=== PATIENT | female | born 1950 | race African-American/Black ===

== ENCOUNTER → 2020-06-12 13:36 | Outpatient (CLI) | payer OTHER, SELFPAY ==
--- NOTE | ~2020-06-12 | DEXA_ITS ---
Bone Density Report Name: Savanna Armenta Age: 70 Sex: Female Ethnicity: Black Date of : 1950 Indication: osteopenia; height loss; history of glucocorticoids; hysterectomy; Referring Provider: BERNARDO, NIESHA Muñoz Study: Bone densitometry was performed. Exam Date: June 12, 2020 Accession number: [id number] Bone Density: Region BMD T-score Z-score Classification AP Spine (L1-L4) 0.823 -2.0 -0.8 Osteopenia Femoral Neck (Right) 0.731 -1.1 -0.2 Osteopenia Total Hip (Right) 0.840 -0.8 -0.2 Normal World Health Organization criteria for BMD impression classify patients as: Normal (T-score at or above -1.0), Osteopenia (T-score between -1.0 and -2.5), or Osteoporosis (T-score at or below -2.5). 10-year Fracture Risk(1): Major Osteoporotic Fracture 6.2% Hip Fracture 0.7% Reported Risk Factors: [place] ([place]), Neck BMD=0.731, BMI=27.4, glucocorticoids (1) FRAX(R) Version 3.08. Fracture probability calculated for an untreated patient. Fracture probability may be lower if the patient has received treatment. Previous Exams: Region Exam Age BMD T-score BMD Change BMD Change Date g/cm2 vs Baseline vs Previous AP Spine(L1-L4) 06/12/2020 70 0.823 -2.0 -0.032* -0.080* 02/18/2018 67 0.903 -1.3 0.048* 0.048* 01/28/2011 60 0.855 -1.7 Total Hip(Right) 06/12/2020 70 0.840 -0.8 -0.041* -0.018 02/18/2018 67 0.857 -0.7 -0.024 -0.024 01/28/2011 60 0.881 -0.5 *Denotes significance at 95% confidence level, LSC for AP Spine = 0.022 g/cm2, LSC for Total Hip = 0.027 g/cm2 Clinical Information Provided by Patient: Has taken Glucocorticoids Has used the following medications: Vitamin D, prednisone in the past Has the following medical conditions: Hysterectomy, pancreas cancer 2018 Patient maximum height was 62 Menopause Age: 26 No regular weight bearing exercise Does not regularly consume dairy products Onset of menses at age 12 Number of children 2 Impression: The patient has low bone mass, based on the Total Spine T-score. The patient has an estimated ten-year risk of hip fracture of 0.7% and an estimated ten-year risk of major fracture of 6.2%, based on the WHO FRAX algorithm. The patient has risk factors, including: history of glucocorticoid therapy. The BMD for the AP Spine(L1-L4) decreased, changing by -0.080 since the last DXA exam. Discussion: BONE DENSITY IS LOW AT ONE OR MORE SKELETAL SITES. This patient's lowest T-score is low at one
--- NOTE | ~2020-06-12 | MM_ITS ---
EXAMINATION: MM screening [facility] BI w liliane HISTORY: Screening TECHNIQUE: Craniocaudal and mediolateral oblique 3-D tomosynthesis images were obtained and synthetic 2-D images were generated. CAD analysis was submitted and interpreted. COMPARISON: No prior mammogram is available for comparison at this institution. BREAST PARENCHYMAL COMPOSITION: There are scattered areas of fibroglandular density. FINDINGS: Stable benign-appearing radiolucent mass lower outer quadrant of the right breast. Stable b enign-appearing lymph nodes in the axillary aspect of the left breast. There is no evidence of suspic ious mass, calcification, or architectural distortion to suggest malignancy in either breast. There h as been no suspicious interval change. IMPRESSION: 1. No mammographic evidence of malignancy. 2. Recommend routine screening mammography in one year. BI-RADS Category 2: Benign finding(s). Reviewed, dictated and finalized at location A.
== END ==
PROVIDERS: PCP Internal Medicine; Visit Provider Internal Medicine
DX: Z12.31 Encounter for screening mammogram for malignant neoplasm of breast (principal); N95.9 Unspecified menopausal and perimenopausal disorder; M85.80 Other specified disorders of bone density and structure, unspecified site
CPT/HCPCS: 77063; 77067; 77080

== ENCOUNTER 2021-01-23 09:27 | Outpatient (CLI) | payer MEDICARE, SELFPAY ==
--- NOTE | ~2021-01-23 | CT_ITS ---
EXAMINATION: CT thoracic spine wo con EXAM DATE: 01/23/2021 09:41 INDICATION: Chronic back pain. Pancreatic cancer. TECHNIQUE: Spiral CT thoracic spine wo con was performed without contrast. Axial, coronal and sagit fercho images were reviewed. The dose-length product (DLP) for this examination was 536.04 mGy-cm. The exposure was tailored according to patient size (auto mA exposure control), and iterative reconstruc tion (ASIR) was used as additional dose reduction technique. There is no prior study for comparison. FINDINGS: There is moderate mid thoracic disc disease. The vertebral bodies are aligned in the AP dim ension. The vertebral body heights are maintained. There are no acute fractures identified. There is moderate left neural foraminal stenosis at T9-T10, mild to moderate at T6-7. There is mild to moderat e right neural foraminal stenosis at T9-10. Central canal appears widely patent. There is mild thorac ic facet arthropathy. There are no osteoblastic or osteolytic lesions identified. Trace left pleural effusion. No mediastinal lymphadenopathy. Left hip arthroplasty. IMPRESSION: Moderate mid thoracic spondylosis. Reviewed, dictated and finalized at location A.
== END 2021-01-23 09:28 ==
LOC: MICIMG 09:27
PROVIDERS: PCP Internal Medicine; Visit Provider Internal Medicine
DX: M47.814 Spondylosis without myelopathy or radiculopathy, thoracic region (principal); M48.04 Spinal stenosis, thoracic region
CPT/HCPCS: 72128

== ENCOUNTER → 2021-05-11 11:01 | Outpatient (CLI) | payer MEDICARE, SELFPAY ==
--- NOTE | ~2021-05-11 | MR_ITS ---
EXAMINATION: MR lumbar spine wo con EXAM DATE: 05/11/2021 11:49 INDICATION low back pain, burning, tingling. Indication bilateral leg pain. TECHNIQUE: Multi-sequential, multiplanar MR images of the lumbar spine were obtained without contrast . Sagittal T1, T2, T2 fat saturation images. Axial T2 weighted images. Comparison is made to prior examination from 03/13/2018. FINDINGS: There is 4 mm anterolisthesis L3 on L4, was 2 mm on prior study. Mild to moderate disc dise ase at L5-S1. The vertebral body and disc heights are otherwise well maintained. The vertebral bodies are otherwise aligned. The conus medullaris terminates at the T12-L1 level and has normal signal int ensity and morphology. There are no suspicious marrow signal abnormalities. Incidental liver cyst. P araspinal soft tissue is unremarkable. Level by level evaluation: T12-L1: Disc does not extend beyond the endplate margin. Facet arthropathy: Mild. Neural foraminal stenosis: No stenosis. Central canal stenosis: No stenosis. L1-L2: Disc does not extend beyond the endplate margin. Facet arthropathy: Mild. Neural foraminal stenosis: No stenosis. Central canal stenosis: No stenosis. L2-L3: Disc does not extend beyond the endplate margin. Facet arthropathy: Mild. Neural foraminal stenosis: Minimal left. Central canal stenosis: No stenosis. L3-L4: There is a mild diffuse disc bulge. Facet arthropathy: Mild. Neural foraminal stenosis: Minimal left. Central canal stenosis: No stenosis. L4-L5: Pwry-ju-huxhddmh Facet arthropathy: Moderate to severe. Neural foraminal stenosis: Moderate left, mild to moderate right. Central canal stenosis: Mild to moderate. L5-S1: There is a mild diffuse disc bulge. There may be right central discectomy defect. Facet arthropathy: Moderate. Neural foraminal stenosis: Mild to moderate right. Central canal stenosis: No stenosis. IMPRESSION: 1. L4-5 grade 1 anterolisthesis, moderate left neural foraminal stenosis. Reviewed, dictated and finalized at location B.
== END ==
PROVIDERS: PCP Nurse Practitioner Family; Visit Provider Nurse Practitioner Family
DX: M54.5 Low back pain (principal); M43.16 Spondylolisthesis, lumbar region; M48.061 Spinal stenosis, lumbar region without neurogenic claudication
CPT/HCPCS: 72148

== ENCOUNTER 2022-03-12 09:00 | Outpatient (CLI) | payer MEDICARE, SELFPAY ==
--- NOTE | ~2022-03-12 | MR_ITS ---
EXAMINATION: MR cervical spine wo con, MR thoracic spine wo con DATE: 03/12/2022 09:44 (accession [id number]), 03/12/2022 09:47 (accession [id number]) INDICATION: Multiple sclerosis TECHNIQUE: 1. Magnetic resonance imaging (MRI) of the cervical spine was performed without intravenous contrast. Sequences included sagittal T2-weighted FSE, sagittal T2-weighted FS FSE, sagittal T1-weighted FSE, axial MERGE and axial T2-weighted FSE. 2. MRI of the thoracic spine was performed without intravenous contrast. Sagittal localizer T1-weight ed FSE of the cervicothoracic spine was obtained. Thoracic spine sequences included sagittal T2-weigh domenico FSE, sagittal T1-weighted SE, Sagittal T2-weighted FS FSE, and axial T2-weighted FSE. COMPARISON: 03/13/[address] dated 01/23/2021 FINDINGS: Cervical spine: Bone alignment is normal. C5-C7 discectomies and anterior spinal fusion with solid osseous fusion acr oss the disc spaces. Unfused vertebral body heights are normal. Bone marrow signal intensity is norm al. Moderate disc height loss with degenerative endplate changes at C3-C4 and C4-C5. No significant c hange in a region of T2 hyperintense central myelomalacia of the cord at the level of T4. There is an approximate 5 mm focus of more subtle increased T2 signal centered posterior to the central canal in the proximal most cord approximately 1 cm below the cervical medullary junction. Remaining cord sign al intensity is normal. Cervical soft tissues are unremarkable. The following disc levels are specifi gabbie discussed: C2-C3: The disc does not extend beyond the endplate margin. There is mild left uncovertebral joint os teoarthritis. There is mild bilateral facet joint osteoarthritis. There is no neural foraminal stenos is. There is no central canal stenosis. C3-C4: Disc is bulging. There is moderate right and severe left uncovertebral joint osteoarthritis. T here is mild right and moderate left facet joint osteoarthritis. There is mild right and moderate lef t neural foraminal stenosis. There is mild central canal stenosis with flattening of the ventral surf aleks of the cord. C4-C5: Disc is bulging. There is moderate left and severe right uncovertebral joint osteoarthritis. T here is mild to moderate right and moderate left facet joint osteoarthritis. There is mild left and m oderate right neural foraminal stenosis. There is mild central canal stenosis with mild indentation o f the ventral surface of the cord. C5-C6: Disc space and uncovertebral joints are fused. The bilateral facet joints appear at least part ially fused with mild hypertrophic changes. There is minimal left neural foraminal stenosis. There is no central canal stenosis. C6-C7: Disc space and uncovertebral joints are fused with mild hypertrophic changes. There is mild bi lateral facet joint osteoarthritis. There is mild bilateral neural foraminal stenosis. There is mild central canal stenosis. C7-T1: Disc is mildly bulging. There is mild bilateral uncovertebral joint osteoarthritis. There is m ild bilateral facet joint osteoarthritis. There is mild bilateral neural foraminal stenosis. There is no central canal stenosis. Thoracic spine: Alignment is normal. Vertebral body heights are normal. No fractures. Bone marrow signal is normal. T here is multilevel disc height loss throughout much of the thoracic spine, severe at T4-T5, T5-T6, T6 -T7 and T8-T9, moderate at T3-T4, T7-T8 and T9-T10 and mild at T2-T3 and T9-T10. There are mild disc bulges or small disc protrusions at each level from T1-T2 through T9-T10 resulting in no to minimal c entral canal stenosis at each level. The T11-T12 through L1-L2 disc does not extend beyond the endpla te margins. There is multilevel mild to moderate bilateral thoracic facet osteoarthritis. This contri butes to moderate neural foraminal stenosis bilaterally at T9-T10 and on the right at T
== END 2022-03-12 09:01 ==
LOC: MICIMG 09:00
PROVIDERS: PCP Internal Medicine; Visit Provider Psychiatry & Neurology Neurology
DX: G35 Multiple sclerosis (principal); M47.894 Other spondylosis, thoracic region
CPT/HCPCS: 72141; 72146

== ENCOUNTER → 2022-10-14 15:02 | Outpatient (CLI) | payer MEDICARE, SELFPAY ==
--- NOTE | ~2022-10-14 | MM_ITS ---
EXAMINATION: MM screening homero BI w liliane HISTORY: Screening mammogram TECHNIQUE: Craniocaudal and mediolateral oblique 3-D tomosynthesis images were obtained and synthetic 2-D images were generated. CAD analysis was submitted and interpreted. COMPARISON: 06/12/2020, 02/18/2018, 09/27/2016 bilateral screening mammogram examinations BREAST PARENCHYMAL COMPOSITION: There are scattered areas of fibroglandular density. FINDINGS: Chronic circumscribed oval opacity in the lower outer right breast with little change since 02/18/2018. Stable circumscribed lymph nodes in the posterior mid to upper outer left breast. There is no evidence of suspicious mass, calcification, or architectural distortion to suggest malign marion in either breast. There has been no suspicious interval change. IMPRESSION: 1. No mammographic evidence of malignancy. 2. Recommend routine screening mammography in one year. BI-RADS Category 2: Benign finding(s). Reviewed, dictated and finalized at location A. [facility] MAGISTRATE
== END ==
PROVIDERS: PCP Internal Medicine; Visit Provider Internal Medicine
DX: Z12.31 Encounter for screening mammogram for malignant neoplasm of breast (principal)
CPT/HCPCS: 77063; 77067

== ENCOUNTER → 2022-11-20 08:08 | Outpatient (CLI) | payer MEDICARE, SELFPAY ==
--- NOTE | ~2022-11-20 | CT_ITS ---
EXAMINATION: CT abdomen pelvis wo con DATE: 11/20/2022 08:34 INDICATION: Abdominal pain TECHNIQUE: Computed tomography (CT) of the abdomen and pelvis was performed without intravenous contr ast. Automated exposure control and iterative reconstruction technique were employed. The dose-length product was 592.75 mGy-cm. COMPARISON: None FINDINGS: Discoid atelectasis/scarring at the bilateral lung bases. Heart size is normal. No pericardial or ple ural effusion. No interval change in a 4.3 cm septated cyst in the right hepatic lobe. Postoperative change of prior Whipple procedure with cholecystectomy clips the gallbladder fossa, suture line at th e pancreaticoduodenal anastomosis and a couple surgical clips at a gastrojejunal anastomosis. Expecte d small amount of gas in the right biliary tree main pancreatic duct. There is mild colonic diverticu losis with a sigmoid predominance. There is no adjacent inflammatory change to suggest diverticuliti s. No bowel obstruction. The appendix is not visualized. No pericecal inflammatory change to suggest acute appendicitis. Bladder is unremarkable aside from some streak artifact from the adjacent left to fercho hip arthroplasty. The uterus is not identified and has likely been surgically resected. No free i ntraperitoneal gas or fluid. No pathologically enlarged abdominal or pelvic lymphadenopathy. Severe l ower lumbar facet osteoarthritis with 5 mm anterolisthesis L4 on L5. IMPRESSION: 1. Postoperative change of prior Whipple procedure. No acute intra-abdominal/pelvic process. 2. Mild diverticulosis. Reviewed, dictated and finalized at location A. IMPRESSION: 1. Postoperative change of prior Whipple procedure. No acute intra-abdominal/pe lvic process. 2. Mild diverticulosis.
--- NOTE | ~2022-11-20 | XR_ITS ---
Lumbosacral Spine: AP and lateral views Clinical History: Pain Findings: The normal lordotic curve is maintained. No acute fracture seen. 8 mm anterolisthesis of L4 over L5 noted. There is mild degenerative disc change at L5-S1. There is facet arthropathy from L3 t hrough S1. The sacroiliac joints are normally outlined. Impression: 8 mm anterolisthesis of L4 over L5. Additional degenerative changes, as above. Reviewed, dictated and finalized at location M. Impression: 8 mm anterolisthesis of L4 over L5. Additional degenerative changes, as above.
--- NOTE | ~2022-11-20 | XR_ITS ---
Cervical Spine: AP, lateral, open-mouth views Clinical History: Pain Findings: No acute fracture or subluxation identified. There is apparent fusion across the C5-C6 and C6-C7 disc spaces. There is moderate degenerative disc change at C3-C4 and C4-C5 disc spaces. Pre-yamile tebral soft tissues are unremarkable. Impression: No acute abnormality evident. Fusion across the C5-C6 and C6-C7 disc spaces. Moderate degenerative disc change at C3-C4 and C4-C5. Reviewed, dictated and finalized at [facility]. Impression: No acute abnormality evident. Fusion across the C5-C6 and C6-C7 disc spaces. Moderate degenerative disc change at C3-C4 and C4-C5.
--- NOTE | ~2022-11-20 | XR_ITS ---
Thoracic spine: Clinical Indication: Radiculopathy AP and lateral views were performed. No fracture is seen. There is normal alignment of the vertebrae. There are areas of mild degenerativ e disc narrowing in the mid thoracic spine. Paravertebral soft tissues appear normal. Impression: No fracture or subluxation. Mild degenerative disc narrowing throughout the mid thoracic spine. Reviewed, dictated and finalized at location . Impression: No fracture or subluxation. Mild degenerative disc narrowing throughout the mid thoracic spine.
== END ==
PROVIDERS: PCP Internal Medicine; Visit Provider Internal Medicine
DX: R10.9 Unspecified abdominal pain (principal); M54.16 Radiculopathy, lumbar region; M54.14 Radiculopathy, thoracic region; M54.12 Radiculopathy, cervical region; M50.321 Other cervical disc degeneration at C4-C5 level; M51.36 Other intervertebral disc degeneration, lumbar region; K57.30 Diverticulosis of large intestine without perforation or abscess without bleeding
CPT/HCPCS: 72040; 72072; 72100; 74176

== ENCOUNTER → 2023-01-02 08:58 | Outpatient (CLI) | payer MEDICARE, SELFPAY ==
--- NOTE | ~2023-01-02 | XR_ITS ---
Lumbosacral Spine: AP and lateral views Clinical History: Pain Findings: The normal lordotic curve is maintained. No fracture seen. 8 mm anterolisthesis of L4 over L5 present. There is facet arthropathy at L4-L5 and L5-S1. The sacroiliac joints are normally outline d. Impression: 8 mm anterolisthesis of L4 over L5. Facet arthropathy, as above. Reviewed, dictated and finalized at location M. Impression: 8 mm anterolisthesis of L4 over L5. Facet arthropathy, as above.
--- NOTE | ~2023-01-02 | XR_ITS ---
Thoracic spine: Clinical Indication: Back pain, radiculopathy AP and lateral views were performed. No fracture is seen. There is normal alignment of the vertebrae. Mild degenerative disc changes are present scattered through thoracic spine.. Paravertebral soft tissues appear normal. Impression: Mild degenerative disc changes throughout the thoracic spine. Reviewed, dictated and finalized at [facility]. Impression: Mild degenerative disc changes throughout the thoracic spine.
== END ==
PROVIDERS: PCP Pain Medicine Interventional Pain Medicine; Visit Provider Pain Medicine Interventional Pain Medicine
DX: M54.17 Radiculopathy, lumbosacral region (principal)
CPT/HCPCS: 72072; 72100

== ENCOUNTER → 2023-01-09 12:32 | Outpatient (CLI) | payer MEDICARE, SELFPAY ==
--- NOTE | ~2023-01-09 | DEXA_ITS ---
Bone Density Report Name: SHANNON DORSEY Age: 72 Sex: Female Ethnicity: Black Date of : 1950 Indication: osteopenia; height loss; hysterectomy; secondary osteoporosis; postmenopausal Referring Provider: BERNARDO, NIESHA Muñoz Study: Bone densitometry was performed. Exam Date: January 09, 2023 Accession number: [id number] Bone Density: Region BMD T-score Z-score Classification AP Spine (L1-L4) 0.843 -1.9 -0.4 Osteopenia Femoral Neck (Right) 0.767 -0.7 0.2 Normal Total Hip (Right) 0.835 -0.9 -0.1 Normal World Health Organization criteria for BMD impression classify patients as: Normal (T-score at or above -1.0), Osteopenia (T-score between -1.0 and -2.5), or Osteoporosis (T-score at or below -2.5). 10-year Fracture Risk(1): Major Osteoporotic Fracture 3.7% Hip Fracture 0.3% Reported Risk Factors: [place] (Black), Neck BMD=0.767, BMI=30.2, secondary osteoporosis (1) FRAX(R) Version 3.08. Fracture probability calculated for an untreated patient. Fracture probability may be lower if the patient has received treatment. Previous Exams: Region Exam Age BMD T-score BMD Change BMD Change Date g/cm2 vs Baseline vs Previous AP Spine(L1-L4) 01/09/2023 72 0.843 -1.9 -0.012 0.020 06/12/2020 70 0.823 -2.0 -0.032* -0.080* 02/18/2018 67 0.903 -1.3 0.048* 0.048* 01/28/2011 60 0.855 -1.7 Total Hip(Right) 01/09/2023 72 0.835 -0.9 -0.047* -0.005 06/12/2020 70 0.840 -0.8 -0.041* -0.018 02/18/2018 67 0.857 -0.7 -0.024 -0.024 01/28/2011 60 0.881 -0.5 *Denotes significance at 95% confidence level, LSC for AP Spine = 0.022 g/cm2, LSC for Total Hip = 0.027 g/cm2 Clinical Information Provided by Patient: Has secondary osteoporosis Has used the following medications: Vitamin D Has the following medical conditions: Hysterectomy, pancreas cancer 2018 Patient maximum height was 62 Menopause Age: 26 No regular weight bearing exercise Does not regularly consume dairy products Onset of menses at age 12 Number of children 2 Impression: The patient has low bone mass, based on the Total Spine T-score. The patient has an estimated ten-year risk of hip fracture of 0.3% and an estimated ten-year risk of major fracture of 3.7%, based on the WHO FRAX algorithm. No significant bone loss was observed. Discussion: BONE DENSITY IS LOW AT ONE OR MORE SKELETAL SITES. This patient's lowest T-score is low at one or more skel
== END ==
PROVIDERS: PCP Internal Medicine; Visit Provider Internal Medicine
DX: Z78.0 Asymptomatic menopausal state (principal); M85.88 Other specified disorders of bone density and structure, other site
CPT/HCPCS: 77080

== ENCOUNTER 2023-07-05 17:49 | Emergency (ER) | payer MEDICARE, SELFPAY ==
--- NOTE | ~2023-07-05 | XR_ITS ---
EXAMINATION: XR chest 2V Exam Date/Time: 07/05/2023 18:15 CDT HISTORY: CP WITH LEFT ARM TINGLING AND NUMBNESS STARTED Comparison: 06/03/2016. RESULT: Lines, tubes, and devices: None. Lungs and pleura: Clear. Cardiomediastinal silhouette: Stable. Other: No acute osseous or upper abdominal finding. IMPRESSION: No acute cardiopulmonary process. Reviewed, dictated and finalized at location K.
--- NOTE | ~2023-07-05 | CT_ITS ---
EXAMINATION: CT brain wo con DATE: 07/05/2023 20:08 INDICATION: dizziness . TECHNIQUE: Computed tomography (CT) of the head was performed without intravenous contrast. The mA wa s adjusted according to patient size. Iterative reconstruction technique was employed. The dose-lengt h product was 605.33 mGy-cm. COMPARISON: MR brain 11/18/2014. FINDINGS: No acute intracranial hemorrhage or extra-axial fluid collection. No hydrocephalus, mass, or herniation. No acute ischemic infarct. Unremarkable dural venous sinus attenuation. No acute osseous abnormality. The aerated spaces are clear. Moderate atrophy and chronic white matter change. Atherosclerotic intracranial calcification. Bilater al lens replacements. Old lacunar infarct in the left caudate head. IMPRESSION: No acute intracranial process. Reviewed, dictated and finalized at location K.
--- NOTE | 2023-07-05 17:51 | ECG_ITS ---
Measurements Intervals [place] Rate: 80 P: -8 OR: 156 QRS: 10 QRSD: 86 T: 50 QT: 372 QTc: 430 Interpretive Statements SINUS RHYTHM NORMAL ECG NO PREVIOUS ECG AVAILABLE FOR COMPARISON Electronically Signed On 07-06-2023 13:31:00 CDT by Fitz Hill M.D.
[2023-07-05 17:57] VITALS: BP 165/108; PULSE 78; RESP 16; TEMP 36.3; O2SAT 99
[2023-07-05 18:12] LABS: Basophils Percent Auto 0.7 % (0.2-1.2); Eosinophils Absolute Auto 0.2 K/mm3 (0-0.3); Eosinophils Percent Auto 3.1 % (0-4.4); Hematocrit 35.5 % (37.0-47.0); Immature Granulocyte Absolute 0.02 K/mm3 (0.00-0.031); Immature Granulocyte Percent A 0.3 % (0-0.5); Lymphocytes Absolute Auto 1.48 K/mm3 (0.9-3.2); Lymphocytes Percent Auto 25.1 % (18.3-44.2); Mean Corpuscular Hemoglobin 28.4 pg (26-34); Mean Corpuscular Volume 91.5 fl (80-100); Mean Platelet Volume 11.5 fl (7.4-10.4); Monocytes Absolute Auto 0.4 K/mm3 (0.1-0.6); Monocytes Percent Auto 6.9 % (2.6-8.5); Neutrophils Absolute Auto 3.8 K/mm3 (1.3-6.7); Neutrophils Percent Auto 63.9 % (45.5-73.1); Platelet Count Result 207 k/mm3 (150-375); Red Blood Count 3.88 M/mm3 (4.2-5.4); Red Cell Distribution Width 13.4 % (11.5-14.5); White Blood Count 5.9 K/mm3 (4.5-10.0)
[2023-07-05 18:23] LABS: INR 0.9; Partial Thromboplastin Time 20.9 SECONDS (22.3-36.8); Prothrombin Time 12.5 Seconds (11.1-14.7)
[2023-07-05 18:27] LABS: Alanine Aminotransferase 35 U/L (6-35); Albumin Level 4.3 g/dL (3.5-5.1); Alkaline Phosphatase 90 U/L (38-126); Anion Gap 8 mmol/L (8-16); Aspartate Amino Transferase 47 U/L (14-36); Bilirubin,Total 0.7 mg/dL (0.2-1.3); Blood Urea Nitrogen 25 mg/dL (7-17); Calcium 9.5 mg/dL (8.4-10.2); Carbon Dioxide 29 mmol/L (22-30); Chloride 101 mmol/L (98-107); Estimated CRCL calculation 26 ml/min; Estimated Glomerular Filt Rate 41; Glucose 191 mg/dL (65-110); Lipase 30 U/L (23-300); Potassium 3.1 mmol/L (3.4-5.0); Sodium 138 mmol/L (137-145)
[2023-07-05 18:34] LABS: Troponin I < 0.012 ng/mL (0.000-0.034)
--- NOTE | 2023-07-05 19:58 | ED.GENADULT ---
HPI - General Adult General Chief complaint: Chest Pain Stated complaint: high bp Time Seen by Provider: 07/05/23 19:25 Source: patient Mode of arrival: ambulatory Limitations: no limitations History of Present Illness HPI narrative: 73-year-old female history of hypertension presenting today with concerns for some lightheadedness as well as chest tightness. Reports that last night she started feeling some lightheadedness when she stands and walks. [place] like she was off balance. No specific limbs were affected and she has had no paresthesias. Also this morning she checked her blood pressure was 200 systolic. She then started feeling some chest pressure in her anterior chest and going down her left arm. That lasted for few hours and stopped about 3 hours prior to arrival. She still has some occasional left arm pressure but no further chest pain. No shortness of breath. All other symptoms and complaints are negative as per ROS. Related Data Home Medications Medication Instructions Recorded Confirmed glimepiride 2 mg tablet 2 mg PO QAM 03/25/23 03/25/23 hydrochlorothiazide 25 mg tablet 25 mg PO DAILY 03/25/23 03/25/23 lipase 3,000-protease cap PO 03/25/23 03/25/23 9,500-amylase 15,000 unit capsule, delayed rel (Creon) oxycodone 5 mg tablet 5 mg PO Q8H PRN 03/25/23 03/25/23 potassium chloride 20 mEq/15 mL 20 meq PO DAILY 03/25/23 03/25/23 oral liquid valacyclovir 500 mg tablet 500 mg PO DAILY 03/25/23 03/25/23 Allergies Allergy/AdvReac Type Severity Reaction Status Date / Time Penicillins Allergy Unknown Unknown Verified 03/25/23 10:24 Contrast Media Allergy Intermediate Unknown Uncoded 03/25/23 10:24 Shrimp Allergy Intermediate Unknown Uncoded 03/25/23 10:24 Review of Systems Review of Systems: All systems reviewed & are unremarkable except as noted in HPI and below PMFSH Past Medical History Medical History Depression Diverticula of colon High blood pressure High cholesterol Pancreatic cancer Type 2 DM mild nonproliferative retinopathy, macular edema, uncontrol Surgical History Surgical History H/O: hysterectomy History of hip surgery (~2019) History of pancreatic surgery whipple Family History Family History Father Hypertension Diabetes mellitus Social History Social History Smoking status: Never smoker Alcohol intake: never Substance use: current Substance use type: marijuana Lack of Transportation: No Lack of Food: Never True Current Housing: Decline to Answer Concerned About Future Housing: Decline to Answer Difficulty Paying Gas/Electric Bills: Decline to Answer Difficulty Paying for Meds: Decline to Answer Currently Unemployed: Decline to Answer Education: Decline to Answer Difficulty w/ Childcare or Family Care: No Living arrangements: with family Additional living arrangements comments: Occupation/Education: retired Gender identity (if verbalized by the patient): Female Sexual Orientation (if Verbalized by the Patient): Straight or Heterosexual Exam Narrative: Constitutional: Generally well appearing, no acute distress Head: Atraumatic, no deformities. Eyes: Pupils equal, round, and reactive to light. Neck: Supple, no tracheal deviation, no JVD. ENMT: Mucous membranes moist Cardiovascular: S1, S2 auscultated. No murmurs, rubs, or gallops. No S3/S4. Normal Distal pulses. No peripheral edema. Respiratory: Lung sounds equal. No wheezes, rales, or rhonchi. Gastrointestinal: Abdomen was soft and non-tender. Non-distended. No rebound or guarding. Genitourinary: Deferred Musculoskeletal: Normal muscle tone and bulk. No obvious deformities or tenderness over extremities. Skin: No rashes. Neurological: Strength 5/5 in
[2023-07-05 20:00] VITALS: PULSE 80; RESP 18; O2SAT 99
[2023-07-05 20:15] VITALS: BP 160/90; PULSE 79; RESP 15; O2SAT 99
[2023-07-05] MEDS: hydroCHLOROthiazide 12.5 MG CAPSULE PO (20:59)
[2023-07-05 21:09] VITALS: BP 160/90; PULSE 74; RESP 18; O2SAT 98
== END 2023-07-05 21:10 | disposition home or self-care (01) ==
PROVIDERS: Emergency Medicine; Emergency Provider Emergency Medicine; PCP Internal Medicine
DX: R07.89 Other chest pain (principal); R42 Dizziness and giddiness; E11.9 Type 2 diabetes mellitus without complications; C25.9 Malignant neoplasm of pancreas, unspecified
CPT/HCPCS: 36415; 70450; 71046; 80053; 83690; 84484; 85025; 85610; 85730; 93005; 99284; A9270

== ENCOUNTER → 2023-10-22 11:40 | Outpatient (CLI) | payer MEDICARE, SELFPAY ==
--- NOTE | ~2023-10-22 | MM_ITS ---
EXAMINATION: MM screening homero BI w liliane HISTORY: Screening mammogram TECHNIQUE: Craniocaudal and mediolateral oblique 3-D tomosynthesis images were obtained and synthetic 2-D images were generated. CAD analysis was submitted and interpreted. COMPARISON: 10/14/2022, 06/12/2020 BREAST PARENCHYMAL COMPOSITION:Not Dense. There are scattered areas of fibroglandular density. FINDINGS: Stable lymph nodes at the posterior left breast. Stable lobulated mass at the outer, slight ly lower right breast. No suspicious mass, calcification, or architectural distortion are identified in either breast to suggest malignancy. There has been no suspicious interval change. IMPRESSION: No mammographic evidence of malignancy. Recommend routine screening mammography in one year. BI-RADS Category 2: Benign finding(s). Reviewed, dictated and finalized at [facility]. [employer] SUPER[employer]
== END ==
PROVIDERS: PCP Internal Medicine; Visit Provider Internal Medicine
DX: Z12.31 Encounter for screening mammogram for malignant neoplasm of breast (principal)
CPT/HCPCS: 77063; 77067

== ENCOUNTER 2024-01-05 08:26 | Outpatient (CLI) | payer MEDICARE, SELFPAY ==
--- NOTE | ~2024-01-05 | XR_ITS ---
XR shoulder LT min 2V, XR humerus LT 01/05/2024 09:09 Indication: Left shoulder pain Procedure: 4 views left shoulder and 2 views left humerus Comparison: No prior studies for comparison. Findings: There is anatomic alignment. No fracture, subluxation or dislocation. Normal mineralization . No foreign bodies. Impression: 1: No acute bone or joint abnormality. Reviewed, dictated and finalized at location B. Impression: 1: No acute bone or joint abnormality. Impression: 1: No acute bone or joint abnormality.
== END 2024-01-05 08:27 ==
LOC: MICIMG 08:28
PROVIDERS: PCP Pain Medicine Interventional Pain Medicine; Visit Provider Nurse Practitioner Adult Health
DX: M79.602 Pain in left arm (principal)
CPT/HCPCS: 73030; 73060

== ENCOUNTER 2024-01-05 08:29 | Outpatient (CLI) | payer MEDICARE, SELFPAY ==
--- NOTE | ~2024-01-05 | XR_ITS ---
Thoracic spine: Clinical Indication: Radiculopathy AP and lateral views were performed. No fracture is seen. There is normal alignment of the vertebrae. There are mild to moderate degenera tive disc changes throughout the thoracic spine. Paravertebral soft tissues appear normal. Impression: Mild to moderate degenerative disc changes throughout the thoracic spine. Reviewed, dictated and finalized at [facility]. Impression: Mild to moderate degenerative disc changes throughout the thoracic spine.
--- NOTE | ~2024-01-05 | XR_ITS ---
Lumbosacral Spine: AP and lateral views Clinical History: Pain Findings: The normal lordotic curve is maintained. There is 9 mm anterolisthesis of L4 over L5. There is severe facet arthropathy at L4-L5 and L5-S1. There is moderate facet arthropathy at the remainder of the lumbar spine. There is 9 mm anterolisthesis of L5 over S1. Intervertebral disc spaces are rel atively well-preserved. The sacroiliac joints are normally outlined. Impression: 9 mm anterolisthesis of L4 over L5. 9 mm anterolisthesis of L5 over S1. Extensive facet joint arthropathy and lumbar spine. Reviewed, dictated and finalized at location M. Impression: 9 mm anterolisthesis of L4 over L5. 9 mm anterolisthesis of L5 over S1. Extensive facet joint arthropathy and lumbar spine.
== END 2024-01-05 08:30 ==
LOC: MICIMG 08:31
PROVIDERS: PCP Nurse Practitioner Adult Health
DX: M47.25 Other spondylosis with radiculopathy, thoracolumbar region (principal); M47.24 Other spondylosis with radiculopathy, thoracic region; M47.23 Other spondylosis with radiculopathy, cervicothoracic region; M47.22 Other spondylosis with radiculopathy, cervical region; F41.1 Generalized anxiety disorder; F33.1 Major depressive disorder, recurrent, moderate; G89.4 Chronic pain syndrome; M51.34 Other intervertebral disc degeneration, thoracic region
CPT/HCPCS: 72072; 72100

== ENCOUNTER 2024-04-18 04:56 | Emergency (ER) | payer MEDICARE, SELFPAY ==
--- NOTE | 2024-04-18 05:16 | ED.LOWEXIN ---
HPI - Extremity Injury (Lower) General Chief Complaint: Extremity Injury, Lower Stated Complaint: right sciatic leg pain Time Seen by Provider: 04/18/24 05:06 History of Present Illness HPI Narrative: Two days ago patient started having severe pain that radiates from her right lower back down her leg. She does have history of back surgery in the past and she sees pain management for her back pain and gets injections monthly. Last injection was 1 month ago. Worse pain with certain movements including sitting Related Data Home Medications Medication Instructions Recorded Confirmed glimepiride 2 mg tablet 2 mg PO QAM 03/25/23 04/15/24 hydrochlorothiazide 25 mg tablet 25 mg PO DAILY 03/25/23 04/15/24 oxycodone 5 mg tablet 5 mg PO Q8H PRN 03/25/23 04/15/24 valacyclovir 500 mg tablet 500 mg PO DAILY 03/25/23 04/15/24 [id number] cap PO 04/14/24 04/15/24 3,000-10,000-14,000 unit capsule,delayed rel (Zenpep) Allergies Allergy/AdvReac Type Severity Reaction Status Date / Time Penicillins AdvReac Intermediate Hives Verified 04/14/24 14:46 Contrast Media AdvReac Intermediate Hives Uncoded 04/14/24 14:46 Shrimp AdvReac Intermediate Swelling Uncoded 04/14/24 14:46 of Lip/Tongue/Throat Review of Systems Review of Systems: All systems reviewed & are unremarkable except as noted in HPI and below PMFSH Past Medical History Medical History Depression Diverticula of colon High blood pressure High cholesterol Pancreatic cancer Type 2 DM mild nonproliferative retinopathy, macular edema, uncontrol Surgical History Surgical History H/O: hysterectomy History of hip surgery (~2019) History of pancreatic surgery whipple Family History Family History (Updated 04/14/24 @ 14:49 by GARRY Abdi) Father Hypertension Diabetes mellitus Mother No problems noted. Social History Social History (Updated 04/14/24 @ 15:05 by Mona Feldman [facility]) Smoking status: Never smoker Second hand tobacco smoke exposure: Yes Alcohol intake: never Substance use: current Substance use type: marijuana Do You Feel Safe in your Home?: Yes Lack of Transportation: No Lack of Food: Never True Current Housing: I Have Housing Concerned About Future Housing: No Difficulty Paying Gas/Electric Bills: No Difficulty Paying for Meds: No Currently Unemployed: No Education: Trade/Vocational Certificate Difficulty w/ Childcare or Family Care: No Living arrangements: with family Additional living arrangements comments: Occupation/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 EYES: EOMI, conjunctiva normal ENT: Hearing grossly intact LUNGS: Nonlabored breathing. HEART: [Regular rate and rhythm] ABD: [Soft], [nontender to palpation] BACK: No midline tenderness EXT: Normal range of motion SKIN: [No rashes or lesions.] NEURO: [Alert and oriented x 3. No gross focal sensory or strength deficits.] PSYCH: Normal affect MDM - Extremity Injury (Lower) MDM Narrative Medical decision making narrative: ED COURSE AND MEDICAL DECISION MAKINF with acute back pain with right lower back pain radiating down leg. Normal motor and sensory exam. Patient able to ambulate. No evidence of acute cord compression, osteomyelitis/discitis or cauda equina without saddle anesthesia, urinary retention/incontinence, numbness/tingling in lower extremities, fever, history of IV drug use, cancer or immunosuppression. D
[2024-04-18] MEDS: MORPHINE SULFATE (*CRX) 4 MG/ML INJ IM (05:41)
[2024-04-18] MEDS: KETOROLAC 30 MG/ML VIAL (*BKC) 15 MG IM (05:41)
[2024-04-18] MEDS: predniSONE 20 MG TABLET 40 MG PO (05:41)
[2024-04-18 05:57] VITALS: BP 178/100; PULSE 81; RESP 17; O2SAT 98
== END 2024-04-18 05:59 | disposition home or self-care (01) ==
LOC: ANHED 05:22
PROVIDERS: Emergency Provider Emergency Medicine; PCP Nurse Practitioner Adult Health
DX: M54.16 Radiculopathy, lumbar region (principal); E11.3219 Type 2 diabetes mellitus with mild nonproliferative diabetic retinopathy with macular edema, unspecified eye; E78.00 Pure hypercholesterolemia, unspecified; I10 Essential (primary) hypertension; Z85.07 Personal history of malignant neoplasm of pancreas; Z90.710 Acquired absence of both cervix and uterus; Z79.84 Long term (current) use of oral hypoglycemic drugs; Z77.22 Contact with and (suspected) exposure to environmental tobacco smoke (acute) (chronic)
CPT/HCPCS: 96372; 99284; J1885; J2270; J7512

== ENCOUNTER 2024-06-07 10:38 | Outpatient (CLI) | payer MEDICARE, SELFPAY ==
--- NOTE | ~2024-06-07 | MR_ITS ---
EXAMINATION: MR lumbar spine wo con DATE: 06/07/2024 11:27 INDICATION: Radiculopathy, lumbar region. TECHNIQUE: Magnetic resonance imaging (MRI) of the lumbar spine was performed without intravenous con trast. Sequences included sagittal T2-weighted FSE, sagittal T2-weighted FS FSE, sagittal T1-weighted FSE, and axial T2-weighted FSE. COMPARISON: Lumbar spine MRI 05/11/2021 FINDINGS: There is 5 mm anterolisthesis of L4 on L5. Vertebral body heights are normal. There is mild ly decreased disc height at L4-L5 and L5-S1. The distal spinal cord signal intensity is normal. The c onus medullaris is at T12. The following disc levels are specifically discussed: L1-L2: The disc does not extend beyond the endplate margin. There is mild bilateral facet joint osteo arthritis. There is no neural foraminal stenosis. There is no central canal stenosis. L2-L3: The disc is bulging. There is moderate bilateral facet joint osteoarthritis. There is mild lola ateral neural foraminal stenosis. There is no central canal stenosis. L3-L4: The disc is bulging. There is severe bilateral facet joint osteoarthritis. There is mild bilat eral neural foraminal stenosis. There is no central canal stenosis. L4-L5: The disc is bulging and has an annular fissure. There is severe bilateral facet joint osteoart hritis. There is mild right and moderate left neural foraminal stenosis. There is mild central canal stenosis. L5-S1: The disc is bulging and has an annular fissure. There is severe bilateral facet joint osteoart hritis. There is mild bilateral neural foraminal stenosis. There is mild central canal stenosis. IMPRESSION: 1. Mild lumbar spondylosis, stable from 05/11/2021. Reviewed, dictated and finalized at location A.
--- NOTE | ~2024-06-07 | MR_ITS ---
MRI of the cervical spine Clinical History: Radiculopathy Technique: Axial T2-weighted and gradient images, and sagittal T1-weighted, T2-weighted, and STIR popeye ges were acquired. Findings: There is no fracture or subluxation of cervical spine. There is fusion across the C5-C6 and C6-C7 disc spaces. No suspicious bone marrow signal abnormality seen. At C2-C3, there is no disc bulge or herniation. No spinal canal stenosis, cord compression, or neural foraminal narrowing. At C3-C4, there is advanced degenerative disc narrowing. There is minimal disc bulge. No spinal canal stenosis or cord compression. There is bilateral neural foraminal narrowing, left worse than right. At C4-C5, there is moderate to advanced degenerative spine. There is mild central disc bulge. No lisa k canal stenosis or cord compression. Probable mild right neural foraminal narrowing. At C5-C6, there is no disc bulge or herniation. No spinal canal stenosis, cord compression, or defini te neural foraminal narrowing. At C6-C7, there is no disc bulge or herniation. No definite canal stenosis, cord compression, or neur al foraminal narrowing. There is a central T2 hyperintense cord lesion at the C4 level, measuring approximately 6 x 4 x 11 mm in extent. No other abnormal spinal cord lesion/signal identified. Paravertebral soft tissues are unremarkable. Impression: 6 x 4 x 11 mm central/anterior T2 hyperintense cord lesion, at the C4 level. This is somewhat nonspec ific. Diagnostic considerations include nonspecific myelitis or possibly demyelinating lesion. Consid er postcontrast imaging to assess for any postcontrast enhancement. Reviewed, dictated and finalized at location . Impression: 6 x 4 x 11 mm central/anterior T2 hyperintense cord lesion, at the C4 level. Th is is somewhat nonspecific. Diagnostic considerations include nonspecific myeli tis or possibly demyelinating lesion. Consider postcontrast imaging to assess f or any postcontrast enhancement.
== END 2024-06-07 10:39 | disposition home or self-care (01) ==
LOC: MICIMG 10:40
PROVIDERS: PCP Orthopaedic Surgery; Visit Provider Pain Medicine Interventional Pain Medicine
DX: M43.06 Spondylolysis, lumbar region (principal); G95.9 Disease of spinal cord, unspecified
CPT/HCPCS: 72141; 72148

== ENCOUNTER 2024-06-14 14:15 | Emergency (ER) | payer OTHER, MEDICARE, SELFPAY ==
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
[2024-06-14 14:19] VITALS: BP 153/91; PULSE 93; RESP 18; TEMP 36.6; O2SAT 100
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
[2024-06-14 15:56] VITALS: BP 146/95; PULSE 80; RESP 16; TEMP 36.7; O2SAT 100
[2024-06-14] MEDS: KETOROLAC 30 MG/ML VIAL (*BKC) IM (16:35)
[2024-06-14 16:36] VITALS: BP 129/67; PULSE 82; RESP 16; TEMP 36.9; O2SAT 100
[2024-06-14] MEDS: CYCLOBENZAPRINE HCL 10 MG TABLET PO (16:36)
== END 2024-06-14 16:37 | disposition home or self-care (01) ==
PROVIDERS: Emergency Provider Emergency Medicine; PCP Internal Medicine
DX: S29.012A Strain of muscle and tendon of back wall of thorax, initial encounter (principal); M62.830 Muscle spasm of back; I10 Essential (primary) hypertension; E78.00 Pure hypercholesterolemia, unspecified; E11.3219 Type 2 diabetes mellitus with mild nonproliferative diabetic retinopathy with macular edema, unspecified eye; Z90.710 Acquired absence of both cervix and uterus; Z79.899 Other long term (current) drug therapy; Z79.84 Long term (current) use of oral hypoglycemic drugs; Z77.22 Contact with and (suspected) exposure to environmental tobacco smoke (acute) (chronic); M47.812 Spondylosis without myelopathy or radiculopathy, cervical region; Z98.1 Arthrodesis status; M47.814 Spondylosis without myelopathy or radiculopathy, thoracic region; V49.40XA Driver injured in collision with unspecified motor vehicles in traffic accident, initial encounter
CPT/HCPCS: 70450; 72125; 72128; 96372; 99284; A9270; J1885

== ENCOUNTER 2025-01-06 09:56 | Outpatient (CLI) | payer MEDICARE, SELFPAY ==
--- NOTE | ~2025-01-06 | MM_ITS ---
EXAMINATION: MM screening homero BI w liliane HISTORY: Screening TECHNIQUE: Craniocaudal and mediolateral oblique 3-D tomosynthesis images were obtained and synthetic 2-D images were generated. CAD analysis was submitted and interpreted. COMPARISON: Comparison to multiple prior studies sequentially, with oldest reviewed study dated 09/27. BREAST PARENCHYMAL COMPOSITION: Not dense: There are scattered areas of fibroglandular density. FINDINGS: The left breast is stable without evidence for malignancy. There are developing asymmetries in the lateral aspect of the right breast on CC view. There is a mass in the lower aspect of the rig ht breast, middle third, on MLO view, slightly larger than on prior studies. IMPRESSION: 1. Developing right breast mass and right breast asymmetries. 2. Additional mammographic views and possible breast ultrasound are recommended. BI-RADS Category 0: Incomplete: Needs additional imaging evaluation. Reviewed, dictated and finalized at location A. IMPRESSION: 1. Developing right breast mass and right breast asymmetries. 2. Additional mammographic views and possible breast ultrasound are recommended . BI-RADS Category 0: Incomplete: Needs additional imaging evaluation.
== END 2025-01-06 09:57 | disposition home or self-care (01) ==
LOC: MICIMG 09:57
PROVIDERS: PCP Internal Medicine; Visit Provider Internal Medicine
DX: Z12.31 Encounter for screening mammogram for malignant neoplasm of breast (principal); R92.8 Other abnormal and inconclusive findings on diagnostic imaging of breast
CPT/HCPCS: 77063; 77067

== ENCOUNTER 2025-02-16 08:08 | Outpatient (CLI) | payer MEDICARE, SELFPAY ==
--- NOTE | ~2025-02-16 | MMUS_ITS ---
EXAMINATION: MM diagnostic homero RT w liliane, US breast RT limited HISTORY: Follow-up right breast mass TECHNIQUE: Additional 3-D tomosynthesis images of the right breast were performed and synthetic 2-D i mages were generated. CAD analysis was submitted and interpreted. High resolution Limited ultrasound breast ultrasound was performed. COMPARISON: Comparison to multiple prior studies sequentially, with oldest reviewed study dated 09/27. BREAST PARENCHYMAL COMPOSITION: Not dense: There are scattered areas of fibroglandular density. FINDINGS: MAMMOGRAPHIC FINDINGS: There is a persistent mass in the lower outer quadrant of the right breast, middle third. There are n o suspicious calcifications or architectural distortion. ULTRASOUND: Limited right breast ultrasound: At 7:00, 4 cm from the nipple there is a 1.3 x 1 x 0.3 cm cyst corre sponding to the area of mammographic concern. No suspicious masses in the right breast to suggest mal ignancy. IMPRESSION: 1. No evidence for malignancy in the right breast. Benign finding. 2. Routine yearly screening mammogram and regular clinical breast examination are recommended. BI-RADS Category 2: Benign finding(s). Reviewed, dictated and finalized at location [] IMPRESSION: 1. No evidence for malignancy in the right breast. Benign finding. 2. Routine yearly screening mammogram and regular clinical breast examination a re recommended. BI-RADS Category 2: Benign finding(s).
== END 2025-02-16 08:09 | disposition home or self-care (01) ==
LOC: MICIMG 08:09
PROVIDERS: PCP Internal Medicine; Visit Provider Internal Medicine
DX: R92.8 Other abnormal and inconclusive findings on diagnostic imaging of breast (principal)
CPT/HCPCS: 76642; 77061; 77065; G0279

== ENCOUNTER 2025-06-12 10:17 | Emergency (ER) | payer MEDICARE, SELFPAY ==
--- OUTSIDE RECORDS SUMMARY | 2018-06-02 06:15 | XMS_ITS | Continuity of Care Document ---
Author Organization [facility] Address [address] [place] [phone] Phone Care Team Providers Care Product Safety Engineer Name Role Phone Osmin Newman MD Unavailable Unavailable Allergies, Adverse Reactions, Alerts Substance Reaction Status Criticality ANESTHESIA TRAY Active No Informati on PENICILLIN Active No Information Medications Medication Instructions Dosage Effective Dates (start - stop) Status Comments lovastatin 20 mg tablet take 1 tablet by oral route every day with the evening meal 20 MG - Active gabapentin 300 mg capsule take 1 capsule by oral route 3 times every day 300 MG - Active ibuprofen 800 mg tablet take 1 tablet by oral route 3 times every day with food 800 MG - Active diltiazem CD 360 mg capsule,extended release 24 hr take 1 capsule by oral route every day 360 MG - Active Aubagio 14 mg tablet take 1 tablet by oral route every day 14 MG - Active hydrocodone 10 mg-acetaminophen 325 mg tablet take 1 tablet by oral route every 4 - 6 hours as needed for pain 1.00 tablet - Active lorazepam 0.5 mg tablet take 2 tablet by oral route 3 times every day as needed 1 MG - Active duloxetine 60 mg capsule,delayed release take 1 capsule by oral route every day 60 MG - Active Procedures Procedure Date No Charge Refraction Eye Exam & Treatment No Charge Refraction Post-op Follow-up Visit Post-op Follow-up Visit Post-op Follow-up Visit Remove Cataract, Insert Lens No Charge Refraction Post-op Follow-up Visit Post-op Follow-up Visit Post-op Follow-up Visit Remove Cataract, Insert Lens No Charge Refraction No Charge Orbscan IOLMaster IOLMaster Eye Exam, New Patient Advance Directives Directive Yes / No Effective Date File Name No Information Encounters Encounter Description Practice Location Reason(s) For Visit Diagnoses Date Provider Providers Copied on Encounter [facility], [address] [place] [address] [address], [place], [place], [id number], [place] tel:[phone] SEC Norm REDD Professional Complete Exam (chief complaint) Superficial punctate keratitis of right eyeOther secondary cataract, bilateralEpire tinal membrane (ERM) of left eyeBilateral artificial lens implant May- 8 Trent Solorio. [address], [facility] [address], [place], [place], [address], [place]. tel:[phone] Referring Provider: Jesus Leal OD, [facility] [address] [place], [address]. tel:[phone] [facility], [address] [place] [address] [address], [place], [place], [id number], [place] [phone] SEC Norm REDD Professional No Information 8 Trent Solorio. [address], [address], [place], [place], [address], [place]. tel:[phone] [facility], [address] [place] [address] [address], [place], [place], [address], [place] tel:[phone] SEC Norm REDD Professional F/u exam, postop (chief complaint) Surgery follow-up examination 6 Trent Solorio. [address], [address], [place], [place], [address], [place]. tel:[phone] Referring Provider: Jesus Leal OD, [facility] [address] [place], [address]. tel:[phone] [facility], [address], [place], [place], [address], [place] tel:[phone] SEC Norm REDD Professional 1 Week Post Op. (chief complaint) Encounter for examination following surgery 6 Vale Malik. [address] [facility] [address], [address], [place], [place], [address], [place]. tel:[phone] Referring Provider: Jesus Leal OD, [facility] [address] [place], [address]. tel:[phone] [facility], [address], [place], [place], [address], [place] tel:[phone] SEC Norm REDD Professional 1 Day Post Op. (chief complaint) Surgery follow-up examination 6 Trent Solorio. [address] [facility], [address], [place], [place], [address], [place]. tel:[phone] Referring Provider: Jesus Leal OD, [facility] [address] [place], [address]. tel:[phone] [facility], [address], [place], [place], [address], [place] tel:[phone] [facility] No Information 0 6 Trent Solorio. [address] [facility], [address], [place], [place], [address], [place]. tel:[phone] Referring Provider: Jesus Leal OD, [facility] [address] [place], [address]. tel:[phone] [facility], [address], [place], [place], [address], [place] tel:[phone] SEC Norm REDD Professional 1 month PO PCIOL OS (chief complaint) Surgery follow-up examination 9- 6 Trent Solorio. [address] [facility], [address], [place], [place], [address], [place]. tel:[phone] Referring Provider: Jesus Leal OD, [facility] [address] [place], [address]. tel:[phone] [facility], [address], [place], [place], [address], [place] tel:[phone] SEC Norm REDD Professional 1 Week Post Op (chief complaint) Encounter for examination following surgery Dec-0 - 6 Vale Malik. [address] [facility], [address], [place], [place], [address], [place]. tel:[phone] Referring Provider: Jesus Leal OD, [facility] [address] [place], [address]. tel:[phone] [facility], [address], [place], [place], [address], [place] tel:[phone] SEC Norm REDD Professional 1 day P/O (chief complaint) Surgery follow-up examination Nov-10 11- 6 Trent Solorio. [address] [facility], [address], [place], [place], [address], [place]. tel:[phone] Referring Provider: Jesus Leal OD, [facility] [address] [place], [address]. tel:[phone] [facility], [address], [place], [place], [id number], [place] tel:[phone] [facility] No Information Nov-2 2- 6 Trent Solorio. [address] [facility], [address], [place], [place], [address], [place]. tel:[phone] Referring Provider: Jesus Leal OD, [facility] [address] [place], [address]. tel:[phone] [facility], [facility], [address], [place], [place], [address], [place] tel:[phone] [facility] Professional blurry vision (chief complaint) Combined forms of age-related cataract of right eyeNuclear sclerosis of left eyePallor of optic disc of left eye 6 Osmin. [address] [facility], [address], [place], [place], [address], [place]. tel:[phone] Referring Provider: Jesus Leal OD, [facility] [address] [facility], [place], [address]. tel:[phone] Family History Family Member Type Diagnosis Age At Onset Father Problem (finding) Diabetes mellitus Payers Payer name Insurance type Covered libertarian ID Authorcornelius fuentes(s) [facility] Medicare Complete CI [id number] Social History Type Description Quantity Date Captured Comments Alcohol Use Details No Caffeine Use Details Tobacco Use Status Current non-smoker 20 Smoking Status Never smoker Non-Smoking Tobacco Use Details : No Details Available : No Details Available Sex Female Chief Complaint And Reason For Visit From encounter dated '06/02/2018 11:15'. Complete Exam (chief complaint). Description: The 68 year old female presents for evaluation of Complete Exam in the right eye and left eye. Hx of PCIOL OU. Pt reports she has trouble driving at night due to glare from headlights, OU, x 3-4 mos. Pt reports DV is good and NV is good with OTC readers. Pt reports she doesn't use any gtts and no pain, irritation or discomfort today, OU. Reason For Referral Reason For Referral No Information History Of Present Illness Encounter Date Complaint History Of Prese nt Illness Complete Exam The 68 year old female presents for evaluation of Complete Exam in the right eye and left eye. Hx of PCIOL OU. Pt reports she has trouble driving at night due to glare from headlights, OU, x 3-4 mos. Pt reports DV is good and NV is good with OTC readers. Pt reports she doesn't use any gtts and no pain, irritation or discomfort today, OU. F/u exam, postop The 65 year old female presents for a 1 month post op CE OD. Patient is using Pred, Vigamox and Diclofenac as directed. Patient states ou is doing ok. 1 Week Post Op. The 65 year old female presents for 1 Week Post Op. Patient had PCIOL OD 01/16/2016 by JOSE. Patient states she is doing well, her sickness from last visit had gone away. Patient says her eye no longer hurts, and she can see great. Patient says she is still using Vigamox TID OD, Prednisolone TID OD, and Diclofenac TID OD. 1 Day Post Op. The 65 year old female presents for 1 day post op. Patient says over the night she did well, but about 7:25 this morning she woke up with a stomach ache and feeling nauseated. Patient says she felt really sick. Patient threw up. Thought maybe her pressure was up, so wanted to be evaluated to make sure she was ok. Patient says she can see ok. Patient says vision is still about the same as yesterday or a little better. Patient has been using Prednisolone QID OD, Vigamox QID OD, Diclofenac TID OD. 1 month PO PCIOL OS The 65 year old female presents for 1 month PO PCIOL OS. Cataract OD, PCIOL OS. Pt using Pred QD OS and Diclo TID OS. Pt scheduled for CE OD 01/16/16. Pt states OS is doing good. She is wearing OTC readers for now until CE OD is done. Pt states no pain, irritation or discomfort OU 1 Week Post Op The 65 year old female presents for 1 week post op. Patient had PCIOL OS on 11/29/2015. Patient says her vision is doing well. Patient is still using Prednisolone QID OS, Vigamox QID OS, and Diclofenac TID OS. Patient says she tests her eye every once in a while and feels it is getting better. Patient says things are still a little blurry at times. 1 day P/O The 65 year old female presents for a 1 day P/O in the left eye. Patient states VA is blurry. Patient came in with gtts Pred, Vigamox, and Dic to use as instructed. blurry vision The 65 year old female presents for a cataract evaluation ou. Patient c/o blurry vision ou and c/o glare at night. Patient has MS. Functional Status Date Functional Assessmen t No Information Instructions Date Instruction Additional Vargas cho Educational material given Relat ed to Other secondary cataract, bilateral Impression/Plan Impression/Plan - 1 month s/p Phaco IOL OD. Patient has healed well and IOP is stable. Instructed patient to stop all of her PO drops at this time. Recommend she return to Jesus Leal OD for new glasses and regularly scheduled visits. Follow up - Return to Jesus loomis OD Impression/Plan - Go od results after CE OD. Continue post op drops as instructed. Discussed OTC readers for near. Return to clinic as scheduled for post op visit or sooner with any problems. Follow up - as scheduled Impression/Plan - On e Day Post Op s/p Phaco with IOL OD in good position. Patient healing well. IOP OD is normal today. Explained her upset stomach and nausea is unrelated to the eye pressure and recommend she see her PCP for evaluation. Medication instillation, shield use and restrictions reviewed with patient. Return to clinic as scheduled or sooner with problems. Follow up - Return to clinic as scheduled Impression/Plan - 1 month s/p Phaco IOL OS. Patient has healed well. Instructed patient to decrease the Prednisolone to QD OS x 5 days, then stop. Vision is good and IOP is stable. Patient will proceed with OD CE as scheduled. Follow up - Proceed with OD CE as scheduled Impression/Plan - Go od post op results OD. Recommend OTC readers for near until CE OD. Continue post op drops as instructed. Return to as scheduled for post op visit or sooner with any problems. Return to work note given. Patient requested a return date of December 18, 2015. Follow up - as scheduled Impression/Plan - On e Day PO s/p Phaco with IOL OS in good position. Patient healing well. Medication instillation, shield use and restrictions reviewed with patient. Return to clinic as scheduled or sooner with problems. Follow up - 1 week P O IOL OS with Autorefraction Impression/Plan - Ca taract Diagnosis OS>OD discussed in detail with patient. Discussed all risks, benefits and alternatives pertaining to cataract surgery. The procedure and recovery from cataract extraction were discussed. Recommend phacoemulsification with Standard intraocular lens implant OU. Lifestyle lens options discussed. The possibility that patient may still need to wear glasses to correct astigmatism and/or for reading vision following surgery reviewed and understood by patient. Patient will schedule CE OS first with standard IOL set for distance, followed by OD CE with standard IOL for distance as well. Follow up - Schedule CE OS first / Standard IOL / Distance; followed by OD CE / Standard IOL / Distance Assessments Type Assessment Date assessment Superficial punctate keratitis o f right eye assessment Other secondary cataract, bilate ral assessment Epiretinal membrane (ERM) of lef t eye assessment Bilateral artificial lens implan t Patient Care Teams Name Effective Dates (start - stop) Status Members No Information
--- OUTSIDE RECORDS SUMMARY | 2025-06-12 10:20 | XMS_ITS | Clinical Summary ---
Author Organization [facility] [employer] Address [address] [place] [address] [place] [address] Care Team Providers Care Hvac Engineering Technician Name Role Phone Olvin Muniz MD Primary Care Provider Source Comments [facility],non-owned Affiliates and Associated Physician Practices is amultiple site organization consisting of ambulatory clinics and hospital sitesin [place], [place], [place] and [place]. This disclosure is being madepursuant to the Care Everywhere program and may not contain all information available regarding this patient. Last updated 18.[facility] [employer] 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 Gender Identity Not on file Sexual Orientation Not on file Last Filed Vital Signs Vital Sign Reading Time Taken Comments Blood Pressure 151/94 05/07/2019 1:00 AM CDT Pulse 57 05/07/2019 1:00 AM CDT Temperature 36.5 C (97.7 F) 05/06/2019 5:10 PM CDT Respiratory Rate 20 05/07/2019 1:00 AM CDT Oxygen Saturation 98% 05/07/2019 1:00 AM CDT Inhaled Oxygen Concentration - - Weight 77.6 kg (171 lb) 05/06/2019 5:10 PM CDT Height 154.9 cm (5' 1) 05/06/2019 5:10 PM CDT Body Mass Index 32.31 05/06/2019 5:10 PM CDT Plan of Treatment Health Maintenance Due Date Last Done Comments BONE DENSITY TESTING 1950 COLOGUARD (AGES 45-75) - COLON CA SCREENING 1950 COLON MONITORING 1950 COLONOSCOPY - COLON CA SCREENING 1952 CT COLONOGRAPHY - COLON CA SCREENING 1950 Colorectal Cancer Screening 1950 FIT - COLON CA SCREENING 1950 FLEX SIG - COLON CA SCREENING 1950 LIPID TESTING 1950 MAMMOGRAM 1950 DTAP/TDAP/TD VACCINES (1 - Tdap) 02/19/1971 PNEUMOCOCCAL VACCINE 50+ (1 of 1 - PCV) 02/19/2002 ZOSTER VACCINE (1 of 2) 02/19/2002 DEPRESSION SCREENING 09/08/2024 MEDICARE AWV CALENDAR YEAR 2024 COVID-19 VACCINE (1 - season) 2025 INFLUENZA VACCINE (#1) 2025 8, 07/18/2017, 06/19/2016, Additional history exists Respiratory Syncytial Virus (RSV) Vaccine Pt: or over 60 yrs (1 - 1-dose 75+ series) 02/19/2027 HEPATITIS C SCREENING Completed 05/06/2019 HEPATITIS B VACCINE Aged Out No longe r eligible based on patient's age to complete this topic HIB VACCINE Aged Out No longer eligi ble based on patient's age to complete this topic HPV VACCINE Aged Out No longer eligi ble based on patient's age to complete this topic MENINGOCOCCAL (Group B) VACCINE SHARED DECISION-MAKING Aged Out No longer eligible based on patient's age to complete this topic MENINGOCOCCAL GROUPS A/C/Y/W VACCINE Aged Out No longer eligible based on patient's age to complete this topic Procedures Procedure Name Priority Date/Time Associated Diagnosis Comments HEPATITIS C AB SCREEN RFLX NAAT QUANT STAT 05/06/2019 6:50 PM CDT from Last 3 Months or Most Recently Relevant to Health Maintenance Results * HEPATITIS C AB SCREEN RFLX NAAT QUANT (05/06/2019 6:50 PM CDT) Hepatitis C Antibody Non-react beba Non-reac tive 05/06/2019 7:40 PM CDT [facility] Comment: Hepatitis C Antibody screen indicates no serologic evidence of past or current infection with Hepatitis C Virus. Patients with unexplained liver disease who are immunocompromised or suspected of having acute Hepatitis C infection may benefit from Nucleic Acid Test (CIPRIANO) for Hepatitis C Viral RNA to confirm Hepatitis C status. Blood BLOOD SPECIMEN / Unknown Venipuncture / Unknown 05/06/2019 6:50 PM CDT 05/06/2019 6:56 PM CDT Temo Whitaker MD LAB - CHEMISTRY ORDERABLES Final Result [address] [phone] from Last 3 Months or Most Recently Relevant to Health Maintenance Insurance [employer] MEDICARE ADV Care Teams Hvac Engineering Technician Relationship Specialty Start Date End Date Olvin Muniz MD [address] [facility] [address] [place] [address] PCP - General Internal Medicine 05/06/19
--- OUTSIDE RECORDS SUMMARY | 2025-06-12 10:20 | XMS_ITS | Clinical Summary ---
Author Organization [facility] Facility Address [address] [address] Care Team Providers Care Flexographic Press Set Up Operator Name Role Phone Cristy Bah MD Primary Care Provider [phone] Social History Tobacco Use Types Packs/Day Years Used Date Smoking Tobacco: Never Assessed Comments Unknown Sex and Gender Information Value Date Recorded Sex Assigned at Not on file Legal Sex Female 12:38 PM EDT Gender Identity Not on file Sexual Orientation Not on file Last Filed Vital Signs Vital Sign Reading Time Taken Comments Blood Pressure 120/70 03/08/2025 2:06 PM CDT Pulse 88 03/08/2025 2:06 PM CDT Temperature 36.1 C (97 F) 03/08/2025 2:06 PM CDT Respiratory Rate 18 03/08/2025 2:06 PM CDT Oxygen Saturation 99% 03/08/2025 2:06 PM CDT Inhaled Oxygen Concentration - - Weight 70.9 kg (156 lb 4.8 oz) 03/08/2025 2:06 P M CDT Height - - Body Mass Index - - Plan of Treatment Upcoming Encounters Date Type Department Care Team (Late st Contact Info) Description 06/14/2025 2:30 PM CDT Office Visit [facility] [address] [facility] [address] [place] [address] Edward Pacheco DO [address] [place] [address] Health Maintenance Due Date Last Done Comments Breast Cancer Screening 1950 Colorectal Cancer Screening: Annual FOBT 02/19/2001 Colorectal Cancer Screening: Colonoscopy 02/19/2001 Colorectal Cancer Screening: Sigmoidoscopy 02/19/2001 Diabetes: Hemoglobin A1C 12/06/2024 03/21/2024 Diabetes: Ophthalmology Exam 12/06/2024 Diabetes: Pedal Pulse Checked 12/06/2024 Diabetes: Sensory Foot Exam 12/06/2024 Diabetes: Visual Foot Exam 12/06/2024 Influenza Vaccine (#1) 2025 , 05/23/2021, 05/23/2020, Additional history exists Pneumococcal Vaccine: 50+ Years Completed 09/20/2022, 01/16/2018 Hepatitis B Vaccine Aged Out No longe r eligible based on patient's age to complete this topic Insurance Advance Directives Documents on File Type Date Recorded Patient Hotel Front Desk Clerk Expl anation Advance Care Planning 03/10/2025 9:22 AM Care Teams Flexographic Press Set Up Operator Relationship Specialty Start Date End Date Cristy Bah MD [address] [place] [address] PCP - General Internal Medicine 12/06/24
--- OUTSIDE RECORDS SUMMARY | 2025-06-12 10:20 | XMS_ITS | Encounter Summary ---
Author Organization [facility] Address [address] [place] [address] [place] [address] Care Team Providers Care Insulation Packer Name Role Phone Olvin Muniz MD Primary Care Provider [phone] Encounter Details Date Type Department Care Team (Late st Contact Info) Description 07/18/2023 Lab Requisition [facility] - DermPath Lab [address] [place] [id number] Dario Strauss MD [address] [facility] [address] Social History Tobacco Use Types Packs/Day Years Used Date Smoking Tobacco: Never Smokeless Tobacco: Never Alcohol Use Standard Drinks/Week Comments Not Currently 0 (1 standard drink = 0.6 oz pur e alcohol) Comments No Sex and Gender Information Value Date Recorded Sex Assigned at Not on file Legal Sex Female 5:31 PM LOCK 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 Gender Identity Not on file Sexual Orientation Not on file documented as of this encounter Plan of Treatment Not on file documented as of this encounter Procedures Procedure Name Priority Date/Time Associated Diagnosis Comments DERMATOPATHOLOGY Routine 07/17/2023 12:0 0 AM LOCK PLATER documented in this encounter Results * DERMATOPATHOLOGY (07/17/2023 12:00 AM LOCK PLATER) Case Report Dermatopathology Report Case: [id number] Authorizing Provider: Dario Strauss MD Collected: 07/17/2023 12:00 AM Ordering Location: [facility] DermPath Lab Received: 07/18/2023 08:50 AM Pathologist: Ariadna Ramirez MD Specimen: Skin, right cheek 1:46 PM [facility] DERMATOPATHOLOGY [facility] Final Diagnosis Specimen A. SKIN, right cheek: EPIDERMOID CYST WITH EVIDENCE OF RUPTURE (L72.0) PRESENT AT MARGIN 1:46 PM [facility] DERMATOPATHOLOGY [facility]OR[facility] at [address] [facility] Clinical History Cyst. Path# [id number]. Check Margins. 1:46 PM [facility]ERMATOPATH[facility] Gross Description Specimen A: Received is one formalin filled container labeled with the patient's name and designated right cheek. The specimen consists of a 15x7x7 mm piece of skin. The margin is inked green. The specimen is bisected lengthwise and submitted in 1 cassette. Jar 0. 1:46 PM [facility]MAT[facility] Microscopic Description Specimen A. SKIN, right cheek: Within the dermis, there is a space lined by epithelium that resembles normal epidermis and the infundibular portion of the hair follicle. Surrounding this is an infiltrate with neutrophils, histiocytes, and multinucleated giant cells. This lesion is present at the margin of the specimen. 1:46 PM [facility]ERMAT[facility]ATH[facility] Disclaimer An external and internal positive and negative controls are appropriate for the histochemical, immunohistochemical and immunofluorescence stain(s) in this case (if any), except where stated explicitly. The performance characteristics of the stain(s) cited in this report were developed and its performance characteristic determined by the Dermatopathology Laboratory at [facility], directed by Dr. Chantel Padgett. These tests need not be, and therefore are not, approved by the [place] Food and Drug Administration. The tests are used for clinical purposes. Billing Codes Specimen Charges Stain Charges 44087 1 1:46 PM [facility] Embedded Images 1:46 PM [facility]MATOPATH[facility] Pathology/Cytolog y TISSUE SPECIMEN FROM SKIN / Unknown 07/17/2023 07/18/2023 8:50 AM [facility] us Dario Strauss MD LAB - PATHOLOGY/CYTOLOGY ORDER HEIKE Final Result DERMATOPATHOLOGY LABORATORY [facility] - Department of Dermatology [facility] [address] [place] [address], [address] [phone] documented in this encounter Visit Diagnoses Not on filedocumented in this encounter Care Teams Insulation Packer Relationship Specialty Start Date End Date Olvin Muniz MD [address] [place] [address] PCP - General Internal Medicine 05/06/19 documented as of this encounter
--- OUTSIDE RECORDS SUMMARY | 2025-06-12 10:20 | XMS_ITS | Clinical Summary ---
Author Organization [facility] B Address [address] [place] [address] Care Team Providers Care Synchronous Motor Assembler Name Role Phone Olvin Muniz MD Primary Care Provider [phone] Yazmin Page RN Unavailable Unavailab Frederick Springer MD Unavailable [phone] Mark Au MD Unavailable Nancy Honeycutt MD Unavailable Allergies Active Allergy Reactions Criticality Noted Date Comments Codeine Hives Medium 07/09/2021 Fish Containing Products Anaphylaxis High 05/06/2019 Iodine Unknown 03/17/2017 Welts Penicillins Itching Low Watery eyes Medications valACYclovir (VALTREX) 500 mg tabletIndicatio ns:Prophylaxis, Medical Take 1 tablet (500 mg total) by mouth every morning 7 Active blood glucose diagnostic (OneTouch Verio test strips) strip OneTouch Verio test strips USE TO TEST BLOOD SUGAR ONCE DAILY Active glimepiride (AMARYL) 2 mg tablet Take 1 tablet (2 mg total) by mouth 2 (two) times a day 2 Active oxyCODONE-aceta minophen (PERCOCET) 5-325 mg per tablet Take 1 tablet by mouth every 6 (six) hours as needed for pain 15 tablet 3 Active omeprazole (PriLOSEC) 40 mg capsule Take 1 capsule by mouth once daily 30 capsule 4 Active olmesartan (BENICAR) 40 mg tablet Take 1 tablet (40 mg total) by mouth daily Active ketoconazole (NIZORAL) 2 % cream Apply 1 Application topically daily Left foot Active aspirin 325 mg tablet Take 1 tablet (325 mg total) by mouth daily 30 tablet 11 4 Active baclofen (LIORESAL) 10 mg tablet Take 0.5 tablets (5 mg total) by mouth 2 (two) times a day 4 Active carvediloL (COREG) 3.125 mg tablet Take 1 tablet (3.125 mg total) by mouth 2 (two) times a day with meals 60 tablet 11 4 Active sertraline (ZOLOFT) 100 mg tabletIndicatio ns:Moderate recurrent major depression (HCC) Take 1 tablet (100 mg total) by mouth daily 90 tablet 3 4 Active nortriptyline (PAMELOR) 10 mg capsuleIndicati ons:Chronic abdominal pain TAKE 4 CAPSULES(40 MG) BY MOUTH EVERY NIGHT 120 capsule 5 5 Active Additional Information Patient taking differently: 40 mg oral Nightly, Reported on 02/01/2025 ALPRAZolam (XANAX) 0.5 mg tablet Take 1 tablet (0.5 mg total) by mouth as needed Active cyclobenzaprine (FLEXERIL) 5 mg tablet Take 1 tablet (5 mg total) by mouth 3 (three) times a day as needed for muscle spasms Active hydroCHLOROthia zide (HYDRODIURIL) 25 mg tablet Take 1 tablet (25 mg total) by mouth daily 5 Active simvastatin (ZOCOR) 5 mg tablet Take 1 tablet (5 mg total) by mouth nightly Active pancrelipase (Zenpep) 25,000 units of lipase per capsule Take two with meals and one with snacks, five minutes after beginning to eat. Max 9 capsules per day 270 capsule 3 5 Active Active Problems Problem Noted Date Diagnosed Date Hypertensive crisis 03/21/2024 Hypertensive urgency 03/20/2024 Abdominal pain 02/10/2023 Gastric ulcer 07/16/2022 Overview (07/16/2022): Added automatically from request for surgery [id number] Thoracic spine pain 09/12/2021 Myalgia 09/12/2021 Lumbosacral spondylosis without myelopathy 09/12 Lumbar facet joint syndrome 09/12/2021 Type 2 diabetes mellitus wit hout complication, without long-term current use of insulin 06/19/2019 Assessment & Plan (06/22/2019 12:20 PM CDT): BG is in 130-150 range with 1 units of insulin. Reluctant to start meds. Given recent or history and improving bg I favor her checking her bg periodically at home and having f/u with pcp. Pt agreeable with plan. Recommendations: - MDSSI + 2am - Consistent carb diet Discharge Recommendations: - lifestyle modification may resolve her mild diabettes - we have requested an outpatient appointment with us in our Endocrine clinics Assessment & Plan (06/19/2019 5:29 PM CDT): This is a new diagnosis of diabetes for her with A1c of 6.7. She is overweight with a BMI of 33, has a relatively poor diet. Family history in father and sibling of diabetes. Never clearly screened for diabetes in the past including during . She is somewhat taken a packet this new diagnosis and is upset. Discussed with her that she is likely to go home on metformin, and she is aware and has some friends on metformin. Recommendations: - MDSSI + 2am - Consistent carb diet Discharge Recommendations: - likely discharge on metformin - we have requested an outpatient appointment with us in our Endocrine clinics IPMN (intraductal papillary mucinous neoplasm) 0 06/04/2019 Overview (06/04/2019): Added automatically from request for surgery [id number] Assessment & Plan (08/02/2024 5:19 PM PLATE DRYING MACHINE TENDER): 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 Jermaine Mack Assessment & Plan (07/17/2023 6:26 AM PLATE DRYING MACHINE TENDER): 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 Jermaine Mack Assessment & Plan (01/01/2023 12:16 PM CDT): 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 Jermaine Mack Assessment & Plan (06/28/2022 8:04 AM CDT): 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 Jermaine Mack Assessment & Plan (10/24/2021 8:37 AM PLATE DRYING MACHINE TENDER): 1.5 cm tumor with negative lymph nodes. 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 Status post Whipple procedure June 2019 Assessment & Plan (11/03/2020 7:13 AM PLATE DRYING MACHINE TENDER): 1.5 cm tumor with negative lymph nodes. Status post Whipple procedure June 2019 Assessment & Plan (04/24/2020 6:01 PM CDT): 1.5 cm tumor with negative lymph nodes. Status post Whipple procedure June 2019 Follow-up MRI scan of the abdomen to be performed June 2020 Assessment & Plan (06/19/2019 5:26 PM CDT): Need to optimize glucose control for good wound healing. Partial pancreatic resection puts her at higher risk for diabetes, though this has not clearly induced her diabetes given her A1c elevation. Lumbosacral radiculopathy 09/29/2017 Assessment & Plan (08/02/2024 5:19 PM PLATE DRYING MACHINE TENDER): Low back pain occasionally radiating down her left leg. Lumbar steroid injections helpful with pain management. Baclofen 10 mg twice a day Off gabapentin and Cymbalta. Assessment & Plan (01/14/2024 5:42 PM CDT): Low back pain occasionally radiating down her left leg. Lumbar steroid injections helpful with pain management. Baclofen 10 mg twice a day Off gabapentin and Cymbalta. Assessment & Plan (07/17/2023 6:26 AM PLATE DRYING MACHINE TENDER): Low back pain occasionally radiating down her left leg. Lumbar steroid injections helpful with pain management. Baclofen 10 mg twice a day Off gabapentin and Cymbalta. Assessment & Plan (01/01/2023 12:15 PM CDT): Low back pain occasionally radiating down her left leg. Lumbar steroid injections helpful with pain management. Follow-up with pain management. Off gabapentin and Cymbalta. Assessment & Plan (06/28/2022 7:59 AM CDT): Low back pain radiating down her bilateral thighs. Previous lumbar steroid injection helpful with pain management. Follow-up with pain management. Gabapentin 300-600 mg every 8 hours as needed Assessment & Plan (10/24/2021 8:36 AM PLATE DRYING MACHINE TENDER): Low back pain radiating down her bilateral thighs. Previous lumbar steroid injection helpful with pain management. Follow-up with pain management. Requested her MRI scan of lumbosacral spine images for my review. Increase gabapentin from 300 mg 3 times a day up to a maximum of 600 mg 3 times a day. Assessment & Plan (05/03/2021 4:10 PM CDT): Low back pain radiating down her left posterior thigh the past 2 months. Lumbar steroid injection helpful with pain management. Scheduled for MRI scan of lumbosacral spine. Assessment & Plan (10/19/2018 8:58 AM PLATE DRYING MACHINE TENDER): No benefit with repeated lumbar steroid injections Cymbalta to 60 mg BID Hydrocodone/APAP prn Increase Neurontin to 600 mg t.i.d. Physical therapy prescribed Requested her MRI of her lumbosacral spine CD from [facility] to assess whether surgery would be an option. Assessment & Plan (04/14/2018 7:24 AM CDT): No benefit with repeated lumbar steroid injections Cymbalta to 60 mg BID Hydrocodone/APAP prn Increase Neurontin to 600 mg t.i.d. Physical therapy prescribed Requested her MRI of her lumbosacral spine CD from [facility] to assess whether surgery would be an option. Assessment & Plan (09/29/2017 11:17 AM PLATE DRYING MACHINE TENDER): Increase Cymbalta to 60 mg BID Hydrocodone/APAP prn Appt with pain management locally. Multiple sclerosis 03/17/2017 Assessment & Plan (08/02/2024 5:18 PM PLATE DRYING MACHINE TENDER): NMO antibody negative 10/19/18 Off disease-modifying therapy since cholestyramine washout of Aubagio due to hypertension in October 2018. Alternative disease-modifying therapies previously discussed including dimethyl fumarate and Rebif. Tumor surveillance with diagnosis of pancreatic ductal papillary mucinous neoplasm a concern. Patient prefers to be observed off treatment at this point. Risks discussed including new MRI lesions, relapses and worsening disability. Vitamin D3 supplementation Off gabapentin. Last COVID-19 vaccine June 2024. Paxlovid if she develops COVID-19. Follow-up MRI of the cervical spine with next MRI scan of the brain. Assessment & Plan (01/14/2024 5:41 PM CDT): NMO antibody negative 10/19/18 Off disease-modifying therapy since cholestyramine washout of Aubagio due to hypertension in October 2018. Alternative disease-modifying therapies previously discussed including dimethyl fumarate and Rebif. Tumor surveillance with diagnosis of pancreatic ductal papillary mucinous neoplasm a concern. Patient prefers to be observed off treatment at this point. Risks discussed including new MRI lesions, relapses and worsening disability. Vitamin D3 supplementation Off gabapentin. Last COVID-19 vaccine fall 2022. Paxlovid if she develops COVID-19. Follow-up MRI scan of the brain and cervical spine without contrast July 2024 Assessment & Plan (07/17/2023 6:25 AM PLATE DRYING MACHINE TENDER): NMO antibody negative 10/19/18 Off disease-modifying therapy since cholestyramine washout of Aubagio due to hypertension in October 2018. Alternative disease-modifying therapies previously discussed including dimethyl fumarate and Rebif. Tumor surveillance with diagnosis of pancreatic ductal papillary mucinous neoplasm a concern. Patient prefers to be observed off treatment at this point. Follow-up MRI scan of the brain and cervical spine without contrast July 2024 Vitamin D3 supplementation Off gabapentin. COVID-19 pandemic discussed. She received her 4th COVID-19 vaccine on April 22, 2022. Another booster vaccination advised. Paxlovid if she develops COVID-19. Assessment & Plan (01/01/2023 12:14 PM CDT): NMO antibody negative 10/19/18 Off disease-modifying therapy since cholestyramine washout of Aubagio due to hypertension in October 2018. Alternative disease-modifying therapies previously discussed, but tumor surveillance with diagnosis of pancreatic ductal papillary mucinous neoplasm concern. Risks and benefits of dimethyl fumarate discussed including flushing, n/v/d, hepatotoxicity, harm, low white blood cell count, and serious infection including PML. Risks and benefits of Rebif discussed including leukopenia, hepatotoxicity, injection site necrosis, depression and flu-like symptoms. Vitamin D3 supplementation Off gabapentin. COVID-19 pandemic discussed. She received her 4th COVID-19 vaccine on April 22, 2022. Bivalent booster vaccination advised. Paxlovid if she develops COVID-19. Assessment & Plan (06/28/2022 7:59 AM CDT): NMO antibody negative 10/19/18 New relapse 2 weeks ago with dysesthesias distal to her mid thighs, gait imbalance and bilateral leg weakness for 1 week. MRI brain, cervical, and thoracic spinal cord without contrast; elevated creatinine. Off disease-modifying therapy since cholestyramine washout of Aubagio due to hypertension in October 2018. Alternative disease-modifying therapies discussed, but tumor surveillance with diagnosis of pancreatic cancer a concern. Will need to coordinate care with Dr. Frederick Dean. Risks and benefits of dimethyl fumarate discussed including flushing, n/v/d, hepatotoxicity, harm, low white blood cell count, and serious infection including PML. Risks and benefits of Rebif discussed including leukopenia, hepatotoxicity, injection site necrosis, depression and flu-like symptoms. Vitamin D3 supplementation Increase gabapentin up to 600 mg 3 times a day COVID-19 pandemic discussed. She received her 4th COVID-19 vaccine on April 22, 2022. Paxlovid advised if she develops COVID-19. Assessment & Plan (10/24/2021 8:35 AM PLATE DRYING MACHINE TENDER): NMO antibody negative 10/19/18 Off disease-modifying therapy since cholestyramine washout of Aubagio due to hypertension in October 2018. Alternative disease-modifying therapies discussed, but tumor surveillance with diagnosis of pancreatic cancer a concern. Option of Copaxone 40 mg 3 times a week discussed, but patient declined subcutaneous treatment. Vit D3 supplement Increase gabapentin up to 600 mg 3 times a day Follow-up MRI scan of the brain and cervical spine May 2022 COVID-19 pandemic discussed. She received her 3rd Moderna COVID-19 vaccine on July 04, 2021. Assessment & Plan (05/03/2021 4:12 PM CDT): NMO antibody negative 10/19/18 Off disease-modifying therapy since cholestyramine washout of Aubagio due to hypertension in October 2018. Alternative disease-modifying therapies discussed, but tumor surveillance with diagnosis of pancreatic cancer a concern. Option of Copaxone 40 mg 3 times a week discussed, but patient declined subcutaneous treatment. Vit D3 supplement Gabapentin 300 mg 3 times a day as needed. Follow-up MRI scan of the brain and cervical spine May 2022 COVID-19 pandemic discussed. She received her 2nd Moderna COVID-19 vaccine November 2020. Assessment & Plan (11/03/2020 7:15 AM PLATE DRYING MACHINE TENDER): NMO antibody negative 10/19/18 Off disease-modifying therapy since cholestyramine washout of Aubagio due to hypertension in October 2018. Alternative disease-modifying therapies discussed, but tumor surveillance with diagnosis of pancreatic cancer a concern. Option of Copaxone 40 mg 3 times a week discussed, but patient declined subcutaneous treatment. Vit D3 supplement Restart Cymbalta 30-60 mg at night for upper abdominal pain Gabapentin 300 mg 3 times a day as needed. Assessment & Plan (04/24/2020 6:03 PM CDT): Off disease-modifying therapy since cholestyramine washout of Aubagio due to hypertension in October 2018. Alternative disease-modifying therapies discussed, but tumor surveillance with recent diagnosis of pancreatic cancer a concern. Will assess for new MRI activity and the etiology of back pain (possible M S hug vs. metastatic disease). If new MRI activity, will consider options such as Vumerity. Vit D3 supplement Cymbalta increase to 60 mg twice a day for squeezing chest pain Add gabapentin 300 mg 3 times a day as needed. Assessment & Plan (10/20/2018 7:31 PM PLATE DRYING MACHINE TENDER): On Aubagio 14 mg daily. Risks discussed including hepatotoxicity and hypertension. Since hypertension has been problematic recently, will perform cholestyramine washout. If blood pressure improves, will switch to Tecfidera. Risks and benefits of Tecfidera discussed including flushing, n/v/d, hepatotoxicity, low white blood cell count, and serious infection including PML. If blood pressure still elevated and unchanged after Aubagio washout, can restart Aubagio. Vit D supplement MRI brain and cervical spine Jun 2018 Assessment & Plan (04/14/2018 7:22 AM CDT): Aubagio 14 mg daily. Risks discussed including hepatotoxicity. Vit D supplement MRI brain and cervical spine Jun 2018 Assessment & Plan (09/29/2017 11:18 AM PLATE DRYING MACHINE TENDER): Aubagio 14 mg daily. Risks discussed including hepatotoxicity. Exercise encouraged Vit D supplement MRI brain and cervical spine Jun 2018 Assessment & Plan (03/17/2017 6:52 PM CDT): Aubagio 14 mg daily. Risks discussed incl hepatotoxicity. Exercise Vit D supplement Osteoarthritis of left hip 03/17/2017 Assessment & Plan (10/20/2018 7:34 PM PLATE DRYING MACHINE TENDER): Positive left hip Chad's sign 04/01/17 Left hip plain films: Mild left hip osteoarthritis MRI of left hip results pending Ortho appointment recommended again Left thigh pain worse with ambulation supportive No relief with lumbar steroid injections and only mild lumbar stenosis at L4-5. Assessment & Plan (04/14/2018 7:26 AM CDT): 04/01/17 Left hip plain films: Mild left hip osteoarthritis. Ortho appointment recommended Assessment & Plan (09/29/2017 11:16 AM PLATE DRYING MACHINE TENDER): Ortho appt. Assessment & Plan (03/17/2017 6:53 PM CDT): Will screen for osteoarthritis. Left hip bursitis or lumbar radiculopathy also possible. If X-ray normal, ortho eval. Moderate recurrent major depression 03/17/2017 Assessment & Plan (08/02/2024 5:20 PM PLATE DRYING MACHINE TENDER): Increase sertraline to 100 mg daily Previously treated with duloxetine 60 mg (tolerated, but discontinued) Assessment & Plan (01/01/2023 12:16 PM CDT): Off duloxetine 60 mg nightly for 1 month. If mood worsens, will resume duloxetine. Assessment & Plan (06/28/2022 8:01 AM CDT): Duloxetine 60 mg nightly Assessment & Plan (10/24/2021 8:37 AM PLATE DRYING MACHINE TENDER): Cymbalta 60 mg twice a day Assessment & Plan (05/03/2021 4:10 PM CDT): Cymbalta 60 mg twice a day Assessment & Plan (11/03/2020 7:15 AM PLATE DRYING MACHINE TENDER): Restart Cymbalta 30 mg at night for a week then 60 mg at night Assessment & Plan (04/24/2020 6:02 PM CDT): Increase Cymbalta 60 mg twice a day Assessment & Plan (10/19/2018 8:59 AM PLATE DRYING MACHINE TENDER): Cymbalta 60 mg BID Assessment & Plan (04/14/2018 7:22 AM CDT): Cymbalta 60 mg BID Assessment & Plan (09/29/2017 11:19 AM PLATE DRYING MACHINE TENDER): Cymbalta 60 mg BID Assessment & Plan (03/17/2017 6:52 PM CDT): Cymbalta 60 mg daily Resolved Problems Problem Noted Date Diagnosed Date Resolved Date Dehydration 08/09/2019 04/24/2020 Pancreatic mass 05/14/2019 04/24/2020 Overview (05/14/2019): Added automatically from request for surgery [id number] Abnormal MRI 01/19/2019 04/24/2020 Overview (01/19/2019): Added automatically from request for surgery [id number] Neurogenic bladder 04/14/2018 0 Assessment & Plan (10/19/2018 8:59 AM PLATE DRYING MACHINE TENDER): Urology evaluation; referral to Dr. Chaparro Assessment & Plan (04/14/2018 7:25 AM CDT): Urology evaluation; referral to Dr. Chaparro Vitamin D deficiency 09/29/2017 018 Encounters Date Type Department Care Team Description 03/14/2025 Orders Only [facility] Medicine Surgery [address] [place] [id number] Kalina Rock PA from Last 3 Months Immunizations Immunization Administration Dates Next Due Influenza, Quad, Adjuvantate d, Intramuscular 05/23/2020 Influenza, Quadrivalent, Shelley l Culture-based MDCK, Preservative Free, Antibiotic Free, Intramuscular 05/29/2021 Influenza, Quadrivalent, Spl it, Intramuscular 05/23/2021,05/23/2020,06/19/2016,08/14 Influenza, Trivalent, High D ose, Split, Preservative Free, Intramuscular 06/18/2019,06/25/2018,07/18/2017,07/17 Influenza, Trivalent, IM (MDV) 08/10/2015 Influenza, Trivalent, Preser vative Free, Intramuscular 05/23/2020 Moderna SARS-CoV-2 Monovalen t Vaccination (12+ YRS) 11/14/2020,10/17/2020 Pneumococcal Conjugate PCV 13 01/16/2018 Pneumococcal Polysaccharide PPV23 09/20/2022 Surgical History Surgery Date Site/Laterality Comments CHOLECYSTECTOMY TUBAL LIGATION PARTIAL HYSTERECTOMY CARPAL TUNNEL RELEASE Bilateral LUMBAR FUSION ANTERIOR FUSION CERVICAL SPINE THORACIC FUSION TRIGGER FINGER RELEASE Bilateral REPLACEMENT TOTAL HIP LATERAL POSITION Le ft WHIPPLE PROCEDURE W/ LAPAROSCOPY 09/08/2018 - 09/07/2019 N/A COLONOSCOPY UPPER GASTROINTESTINAL ENDOSCOPY Medical History Medical History Date Comments Mass of pancreas Chronic constipation Chronic kidney disease Hypertension Hyperlipidemia MS (multiple sclerosis) Pancreatitis PONV (postoperative nausea and vomiting) occurs w/general anesthesia Type 2 diabetes mellitus Cancer (HCC) Pancreatic cancer (HCC) Diverticulosis Family History Medical History Relation Name Comments Diabetes Father Heart failure Father Relation Name Status Comments Father Social History Tobacco Use Types Packs/Day Years Used Date Smoking Tobacco: Never Smokeless Tobacco: Never Tobacco Cessation:Counseling Given: Not Answered Alcohol Use Standard Drinks/Week Comments Yes 0 (1 standard drink = 0.6 oz pur e alcohol) one glass wine month [employer] Utilities Answer Date Recorded In the past 12 months has e [employer], gas, oil, or water [employer] threatened to shut off services in your home? No 03/22/2024 Social Connection and Isolation Panel Answer Date Recorded In a typical week, how many times do you talk on the phone with family, friends, or neighbors? More than three times a week 03/22/2024 How often do you get togethe r with friends or relatives? More than three times a week 03/22/2024 How often do you attend chur ch or mandaen services? More than 4 times per year 03/22/2024 Do you belong to any clubs o r organizations such as mu-ism groups, unions, fraternal or athletic groups, or school groups? No 03/22/2024 How often do you attend meet ings of the clubs or organizations you belong to? Never 03/22/2024 Are you , , di vorced, , never , or living with a partner? 03/22/2024 AUDIT-C Answer Date Recorded Q1: How often do you have a drink containing alc ohol? Monthly or less 02/10/2023 Q2: How many drinks containi ng alcohol do you have on a typical day when you are drinking? 1 or 2 02/10/2023 Q3: How often do you have si x or more drinks on one occasion? Never 02/10/2023 Overall Financial Resource Strain (CARDIA) Answe r Date Recorded How hard is it for you to pa y for the very basics like food, housing, medical care, and heating? Not very hard 03/22/2024 Hunger Vital Sign Answer Date Recorded Within the past 12 months, y ou worried that your food would run out before you got the money to buy more. Never true 03/22/20 24 Within the past 12 months, t he food you bought just didn't last and you didn't have money to get more. Never true 03/22/2024 PRAPARE - Transportation Answer Date Re corded In the past 12 months, has l ack of transportation kept you from medical appointments or from getting medications? No 03/22/2024 Lack of Transportation (Non-Medical) Not on file 03/22/2024 Housing Stability Vital Sign Answer Meet e Recorded In the last 12 months, was t here a time when you were not able to pay the mortgage or rent on time? No 02/12/2023 In the last 12 months, how many places have you lived? 1 02/12/2023 In the last 12 months, was t here a time when you did not have a steady place to sleep or slept in a [place] (including now)? No 02/12/2023 Housing Stability Vital Sign Answer Meet e Recorded In the last 12 months, was t here a time when you were not able to pay the mortgage or rent on time? No 03/22/2024 Number of Times Moved in the Last Year Not on fi le 03/22/2024 At any time in the past 12 m [facility], were you homeless or living in a [place] (including now)? No 03/22/2024 Personal Safety Answer Date Recorded Have you ever been in or are you currently in a harmful physical or emotional relationship or is someone making you feel afraid or unsafe? Denies 03/20/2024 Comments No Sex and Gender Information Value Date Recorded Sex Assigned at Not on file Legal Sex Female 10:02 AM PLATE DRYING MACHINE TENDER Gender Identity Not on file Sexual Orientation Not on file Obstetrics History Last Filed Vital Signs Vital Sign Reading Time Taken Comments Blood Pressure 138/86 02/01/2025 10:01 AM CDT Pulse 73 02/01/2025 10:01 AM CDT Temperature 36.3 C (97.3 F) 02/01/2025 10:01 AM CDT Respiratory Rate 17 07/26/2024 3:13 PM PLATE DRYING MACHINE TENDER Oxygen Saturation 96% 02/01/2025 10:01 AM CDT Inhaled Oxygen Concentration - - Weight 70.1 kg (154 lb 8 oz) 02/01/2025 10:01 AM CDT Height 154.9 cm (5' 1) 02/01/2025 10:01 AM CDT Body Mass Index 29.19 02/01/2025 10:01 AM CDT Plan of Treatment Health Maintenance Due Date Last Done Comments Albumin Creatinine Ratio, Urine 1952 Breast Cancer Screening-Mammogram 1952 Colon Cancer Screening-Colonoscopy 1952 Depression Screening 1952 Hepatitis C Screening 1952 Dilated Eye Exam 1952 Foot Exam 1952 DTaP/Tdap/Td Vaccine (1 - Tdap) 02/19/1963 Hepatitis B Screening 02/19/1970 Zoster Vaccine (1 of 2) 02/19/2002 Well Visit 65+ 02/19/2017 Hemoglobin A1C 09/21/2024 03/21/2024, 06/0 01/2023, 02/10/2023, Additional history exists Osteoporosis Screening-Bone Density Scan 01/17/2025 01/17/2023, 05/07/2021 Lipid Panel 03/21/2025 03/21/2024, 06/0 01/2023, 06/18/2019 Fall Risk Assessment 03/24/2025 03/24/2024 eGFR 03/24/2025 03/24/2024, 03/08, 03/22/2024, Additional history exists Covid-19 Vaccine (5 - 2024-2 6 season) 2025 04/22/2022, 07/04/2021, 11/14/2020, Additional history exists Influenza Vaccine (#1) 2025 , 05/23/2021, 05/23/2020, Additional history exists Pneumococcal vaccine 65+ Completed 09/20/2022, 01/06 Medical Devices Implanted Type Area Rivet Hole Puncher Device Identifier Shelf Expiration Date Model / Serial / Lot Hip Replacement Hip Procedures Procedure Name Priority Date/Time Associated Diagnosis Comments EGFR Routine 03/24/2024 4:06 AM CDT HEMOGLOBIN A1C Routine 03/21/2024 5:11 AM CDT LIPID PANEL Routine 03/21/2024 5:11 AM CDT from Last 3 Months or Most Recently Relevant to Health Maintenance Results * (ABNORMAL) eGFR (03/24/2024 4:06 AM CDT) eGFR 41(L) >=60 mL/min/1. 73 m2 Comment: Interpretive Data Reference Interval Normal >/= 90 mL/min/1.73m2 Mildly decreased* 60 - 89 mL/min/1.73m2 Mildly to moderately decreased 45 - 59 mL/min/1.73m2 Moderately to severely decreased 30 - 44 mL/min/1.73m2 Severely decreased 15 - 29 mL/min/1.73m2 Kidney Failure < 15 mL/min/1.73m2 *Relative to young adult level Estimated glomerular filtration rate is determined by the 2020 CKD-EPI equation recommended by the National Kidney Foundation (A Unifying Approach to GFR Estimation: Recommendations of the NKF-ASK Task Force on Reassessing the Inclusion of Race in Diagnosing Kidney Disease, JASN 2020). The CKD-EPI equation should not be used for patients with unstable renal function and has not been validated in children and those over 70. Current interpretive data was last reviewed 2021. Blood 03/24/2024 4:06 AM CDT 03/24/2024 5:15 AM CDT us Mary Morgan SECTION GANG WORKER LAB BLOOD ORDERABLES Hyun l Result [facility] [address] Department [place] [address] * (ABNORMAL) Hemoglobin A1c (03/21/2024 5:11 AM CDT) Hgb A1C 6.6(H) 4.0 - 5.6 % Estimated Average Glucose 143 mg/dL [facility] Comment: The ADA recommends reporting an estimated Average Glucose (eAG) with all Hemoglobin A1c results using the equation derived from a study of 507 normal and diabetic adults. Minority populations were underrepresented and children were not included. (Diabetes Care 31:2860-2867, 2008). The eAG is not equivalent to a fasting glucose. Blood 03/21/2024 5:11 AM CDT 03/21/2024 5:51 AM CDT us Vance Gomez MD LAB BLOOD ORDERABLES Final Re sult Performing Organization Address [facility] de Phone Number [facility] [address] Department [place] [address] * Lipid panel (03/21/2024 5:11 AM CDT) Pathologist [facility] Cholesterol 179 30 - 199 mg/dL Comment: Interpretive Data Ages < or = 19 years Acceptable: <170 mg/dL Borderline high: 170-199 mg/dL High: >or= 200 mg/dL Ages > or = 20 years Desirable: <200 mg/dL Borderline high: 200-239 mg/dL High: >or= 240 mg/dL Literature References: 1. Expert Panel on Integrated Guidelines for Cardiovascular Health and Risk Reduction in Children and Adolescents. Pediatrics 2011;128:S213 2. NCEP Expert Panel. Circulation 2004;110:227 Current Interpretive Data was last revised on 2018. Triglycerides 85 <=149 mg/dL [facility] Comment: Interpretive Data Ages < or = 9 years Acceptable: <75 mg/dL Borderline high: 75-99 mg/dL High: >or= 100 mg/dL Ages 10 to 20 years Acceptable: <90 mg/dL Borderline high: 90-129 mg/dL High: >or= 130 mg/dL Ages > or = 20 years Desirable: <150 mg/dL Borderline high: 150-199 mg/dL High: 200-499 mg/dL Very high: >or= 499 mg/dL Literature References: 1. Expert Panel on Integrated Guidelines for Cardiovascular Health and Risk Reduction in Children and Adolescents. Pediatrics 2011;128:S213 2. NCEP Expert Panel. Circulation 2004;110:227 Current Interpretive Data was last revised on 2018. HDL 70 >=40 mg/dL [facility] Comment: Interpretive Data Ages < or = 19 years Acceptable: >45 mg/dL Borderline low: 40-45 mg/dL Low: <40 mg/dL Ages > or = 20 years Desirable: >or= 60 mg/dL Low: <40 mg/dL Literature References: 1. Expert Panel on Integrated Guidelines for Cardiovascular Health and Risk Reduction in Children and Adolescents. Pediatrics 2011;128:S213 2. NCEP Expert Panel. Circulation 2004;110:227 Current Interpretive Data was last revised on 2018. LDL, calculated 92 <=129 mg/dL [facility] Comment: Interpretive Data Ages < or = 19 years Acceptable: <110 mg/dL Borderline high: 110-129 mg/dL High: >or= 130 mg/dL Ages > or = 20 years Optimal: <100 mg/dL Near optimal: 100-129 mg/dL Borderline high: 130-159 mg/dL High: >160 mg/dL Literature References: 1. Expert Panel on Integrated Guidelines for Cardiovascular Health and Risk Reduction in Children and Adolescents. Pediatrics 2011;128:S213 2. NCEP Expert Panel. Circulation 2003;110:227 Current Interpretive Data was last revised on 2018. Non-HDL Cholesterol 109 mg/dL [facility] Comment: Interpretive Data Ages < or = 19 years Acceptable: <120 mg/dL Borderline high: 120-144 mg/dL High: >145 mg/dL Ages > or = 20 years When triglycerides are >200 mg/dL, Non-HDL cholesterol is a secondary target of therapy with treatment goals that are 30 mg/dL greater than the LDL cholesterol target. Literature References: 1. Expert Panel on Integrated Guidelines for Cardiovascular Health and Risk Reduction in Children and Adolescents. Pediatrics 2011;128:S213 2. NCEP Expert Panel. Circulation 2003;110:227 Current Interpretive Data was last revised on 2018. Chol/HDL ratio 3 [facility] Blood 03/21/2024 5:11 AM CDT 03/21/2024 5:50 AM CDT us Vance Gomez MD LAB BLOOD ORDERABLES Final Re sult [facility] [address] Department [place] [address] from Last 3 Months or Most Recently Relevant to Health Maintenance Insurance [facility] MEDICARE [facility] Address: [facility] [address] [place] [address] [employer] MEDICARE GOLD [facility] MEDIC[facility] Address: [address] [place] [address] [facility] MEDICARE ADVANTAGE [facility] MEDICARE ADVANTAGE Advance Directives For more information, please contact: [phone] Documents on File Type Date Recorded Patient Alarm Installation Technician Expl anation ADVANCE DIRECTIVE 02/11/2023 4:21 PM POWER OF SUPERVISOR FINISHING ROOM-MEDICAL * Full Code (Latest Code Status on File) Date Activated Date Inactivated Comments 03/20/2024 9:48 PM 03/24/2024 6:25 PM * Full Code Date Activated Date Inactivated Comments 03/20/2024 9:48 PM 03/20/2024 9:48 PM * Full Code Date Activated Date Inactivated Comments 04/23/2023 2:23 PM 04/23/2023 9:41 PM * Full Code Date Activated Date Inactivated Comments 02/10/2023 11:11 PM 02/11/2023 7:57 PM * Full Code Date Activated Date Inactivated Comments 07/26/2022 8:38 AM 07/26/2022 2:17 PM Care Teams Synchronous Motor Assembler Relationship Specialty Start Date End Date Olvin Muniz MD PCP - General 12/06/16 Yazmin Page, RN Registered Nurse Gastroenterology 01/19/19 Frederick Dean MD Consulting Physician Transplant Hepatology 05/18/20 Mark Au MD [address] [facility] [address] [facility] [address] [place] [address] Consulting Physician Gastroenterology 06/12/20 Nancy Honeycutt MD [address] [place] [address] Obstetrics and Gynecology 03/13/23
--- OUTSIDE RECORDS SUMMARY | 2025-06-12 10:20 | XMS_ITS | Encounter Summary ---
Author Organization [facility] Healthcare Address [address] [place] [address] Care Team Providers Care Hydrological Technical Officer Name Role Phone Olvin Muniz MD Primary Care Provider [phone] Yazmin Page RN Unavailable Unavailab Frederick Springer MD Unavailable [phone] Mark Au MD Unavailable Dianne Horta RN Unavailable Nancy Honeycutt MD Unavailable [phone] Encounter Details Date Type Department Care Team (Late st Contact Info) Description 05/16/2020 Telephone [facility] - Imaging [address] [place] [address] Transcribed Order, Provider Social History Tobacco Use Types Packs/Day Years Used Date Smoking Tobacco: Never Smokeless Tobacco: Never Alcohol Use Standard Drinks/Week Comments Yes 0 (1 standard drink = 0.6 oz pur e alcohol) one glass wine month Comments No Sex and Gender Information Value Date Recorded Sex Assigned at Not on file Legal Sex Female 10:02 AM EXPERIMENTAL ROCKET SLED 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 Gender Identity Not on file Sexual Orientation Not on file documented as of this encounter Plan of Treatment Not on file documented as of this encounter Visit Diagnoses Not on filedocumented in this encounter Care Teams Hydrological Technical Officer Relationship Specialty Start Date End Date Olvin Muniz MD PCP - General 12/06/16 Yazmin Page RN Registered Nurse Gastroenterology 01/19/19 Frederick Dean MD Consulting Physician Transplant Hepatology 05/18/20 Mark Au MD [address] [place] [address] Consulting Physician Gastroenterology 06/12/20 Dianne Horta, RN [address] [place] [address] SHOP Outpatient Diet Technician Registered 02/12/23 03/11/23 Nancy Honeycutt MD [address] [place] [address] Obstetrics and Gynecology 03/13/23 documented as of this encounter
[2025-06-12 11:12] VITALS: BP 166/92; PULSE 85; RESP 16; TEMP 36.3; O2SAT 99
--- OUTSIDE RECORDS SUMMARY | 2025-06-12 11:27 | XMS_ITS | Clinical Summary ---
Author Organization [facility] Address [address] [place] [address] [place] [address] Care Team Providers Care Band Shover Name Role Phone Olvin Muniz MD Primary Care Provider [phone] Source Comments [facility],non-owned Affiliates and Associated Physician Practices is amultiple site organization consisting of ambulatory clinics and hospital sitesin [place], [place], [place] and [place]. This disclosure is being madepursuant to the Care Everywhere program and may not contain all information available regarding this patient. Last updated 18.[facility] Allergies Active Allergy Reactions Criticality Noted Date [...] on file Legal Sex Female 5:31 PM JIG BORE TOOL MAKER Gender Identity Not on file Sexual Orientation [...] beba Non-reac tive 05/06/2019 7:40 PM CDT [facility] Comment: Hepatitis C Antibody screen indicates no [...] MD LAB - CHEMISTRY ORDERABLES Final Result [address] [phone] from Last 3 Months or Most Recently Relevant to Health Maintenance Insurance [employer] MEDICARE ADV Care Teams Band Shover Relationship Specialty Start Date End Date Olvin Muniz MD [address] [facility] [address] [place] [address] PCP - General Internal Medicine 05/06/19
--- OUTSIDE RECORDS SUMMARY | 2025-06-12 11:27 | XMS_ITS | Clinical Summary ---
Author Organization [facility] Facility Address [address] [address] Care Team Providers Care Clinical Sociologist Name Role Phone Cristy Bah MD Primary Care Provider Social History Tobacco Use Types Packs/Day [...] Description 06/14/2025 2:30 PM CDT Office Visit [facility], [facility] [address] [facility] [address] [place] [address] Edward Pacheco DO [address] [place] [address] Health Maintenance Due Date Last [...] Documents on File Type Date Recorded Patient Carriage Rider Expl anation Advance Care Planning 03/10/2025 9:22 AM Care Teams Clinical Sociologist Relationship Specialty Start Date End Date Cristy Bah MD [address] [place] [address] PCP - General Internal Medicine 12/06/24
--- OUTSIDE RECORDS SUMMARY | 2025-06-12 11:27 | XMS_ITS | Clinical Summary ---
Author Organization [facility] Address [address] [place] [address] Care Team Providers Care District Captain Name Role Phone Olvin Muniz MD Primary Care Provider Yazmin Page RN Unavailable Unavailab Frederick Springer MD Unavailable [phone] Mark Au MD Unavailable Nancy Honeycutt MD [...] (07/16/2022): Added automatically from request for surgery [id number] Thoracic spine pain 09/12/2021 Myalgia 09/12/2021 Lumbosacral [...] (06/04/2019): Added automatically from request for surgery [id number] Assessment & Plan (08/02/2024 5:19 PM MARINE SERVICES TECHNICIAN): 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 [...] 09/29/2017 Assessment & Plan (08/02/2024 5:19 PM MARINE SERVICES TECHNICIAN): Low back pain occasionally radiating down her [...] Cymbalta. Assessment & Plan (07/17/2023 6:26 AM MARINE SERVICES TECHNICIAN): Low back pain occasionally radiating down her [...] needed Assessment & Plan (10/24/2021 8:36 AM MARINE SERVICES TECHNICIAN): Low back pain radiating down her bilateral [...] spine. Assessment & Plan (10/19/2018 8:58 AM MARINE SERVICES TECHNICIAN): No benefit with repeated lumbar steroid injections Cymbalta to 60 mg BID Hydrocodone/APAP prn Increase Neurontin to 600 mg t.i.d. Physical therapy prescribed Requested her MRI of her lumbosacral spine CD from [facility] to assess whether surgery would be an option. Assessment & Plan (04/14/2018 7:24 AM CDT): No benefit with repeated lumbar steroid injections Cymbalta to 60 mg BID Hydrocodone/APAP prn Increase Neurontin to 600 mg t.i.d. Physical therapy prescribed Requested her MRI of her lumbosacral spine CD from [facility] to assess whether surgery would be an option. Assessment & Plan (09/29/2017 11:17 AM MARINE SERVICES TECHNICIAN): Increase Cymbalta to 60 mg BID Hydrocodone/APAP prn Appt with pain management locally. Multiple sclerosis 03/17/2017 Assessment & Plan (08/02/2024 5:18 PM MARINE SERVICES TECHNICIAN): NMO antibody negative 10/19/18 Off disease-modifying therapy [...] 2024 Assessment & Plan (07/17/2023 6:25 AM MARINE SERVICES TECHNICIAN): NMO antibody negative 10/19/18 Off disease-modifying therapy [...] COVID-19. Assessment & Plan (10/24/2021 8:35 AM MARINE SERVICES TECHNICIAN): NMO antibody negative 10/19/18 Off disease-modifying therapy [...] 2020. Assessment & Plan (11/03/2020 7:15 AM MARINE SERVICES TECHNICIAN): NMO antibody negative 10/19/18 Off disease-modifying therapy [...] needed. Assessment & Plan (10/20/2018 7:31 PM MARINE SERVICES TECHNICIAN): On Aubagio 14 mg daily. Risks discussed [...] 2018 Assessment & Plan (09/29/2017 11:18 AM MARINE SERVICES TECHNICIAN): Aubagio 14 mg daily. Risks discussed including hepatotoxicity. Exercise encouraged Vit D supplement MRI brain and cervical spine Jun 2018 Assessment & Plan (03/17/2017 6:52 PM CDT): Aubagio 14 mg daily. Risks discussed incl hepatotoxicity. Exercise Vit D supplement Osteoarthritis of left hip 03/17/2017 Assessment & Plan (10/20/2018 7:34 PM MARINE SERVICES TECHNICIAN): Positive left hip Chad's sign 04/01/17 Left [...] recommended Assessment & Plan (09/29/2017 11:16 AM MARINE SERVICES TECHNICIAN): Ortho appt. Assessment & Plan (03/17/2017 6:53 PM CDT): Will screen for osteoarthritis. Left hip bursitis or lumbar radiculopathy also possible. If X-ray normal, ortho eval. Moderate recurrent major depression 03/17/2017 Assessment & Plan (08/02/2024 5:20 PM MARINE SERVICES TECHNICIAN): Increase sertraline to 100 mg daily Previously treated with duloxetine 60 mg (tolerated, but discontinued) Assessment & Plan (01/01/2023 12:16 PM CDT): Off duloxetine 60 mg nightly for 1 month. If mood worsens, will resume duloxetine. Assessment & Plan (06/28/2022 8:01 AM CDT): Duloxetine 60 mg nightly Assessment & Plan (10/24/2021 8:37 AM MARINE SERVICES TECHNICIAN): Cymbalta 60 mg twice a day Assessment & Plan (05/03/2021 4:10 PM CDT): Cymbalta 60 mg twice a day Assessment & Plan (11/03/2020 7:15 AM MARINE SERVICES TECHNICIAN): Restart Cymbalta 30 mg at night for a week then 60 mg at night Assessment & Plan (04/24/2020 6:02 PM CDT): Increase Cymbalta 60 mg twice a day Assessment & Plan (10/19/2018 8:59 AM MARINE SERVICES TECHNICIAN): Cymbalta 60 mg BID Assessment & Plan (04/14/2018 7:22 AM CDT): Cymbalta 60 mg BID Assessment & Plan (09/29/2017 11:19 AM MARINE SERVICES TECHNICIAN): Cymbalta 60 mg BID Assessment & Plan (03/17/2017 6:52 PM CDT): Cymbalta 60 mg daily Resolved Problems Problem Noted Date Diagnosed Date Resolved Date Dehydration 08/09/2019 04/24/2020 Pancreatic mass 05/14/2019 04/24/2020 Overview (05/14/2019): Added automatically from request for surgery [id number] Abnormal MRI 01/19/2019 04/24/2020 Overview (01/19/2019): Added automatically from request for surgery [id number] Neurogenic bladder 04/14/2018 0 Assessment & Plan (10/19/2018 8:59 AM MARINE SERVICES TECHNICIAN): Urology evaluation; referral to Dr. Chaparro Assessment & Plan (04/14/2018 7:25 AM CDT): Urology evaluation; referral to Dr. Chaparro Vitamin D deficiency 09/29/2017 018 Encounters Date Type Department Care Team Description 03/14/2025 Orders Only [facility] Medicine Surgery [address] [facility] [address] [place] [address] Kalina Rock PA from Last 3 Months [...] pur e alcohol) one glass wine month [employer] Answer Date Recorded In the past 12 months has e [employer], gas, oil, or water [employer] threatened to shut off services in your [...] often do you attend chur ch or rastafarian services? More than 4 times per year 03/22/2024 Do you belong to any clubs o r organizations such as baptist groups, unions, fraternal or athletic groups, or [...] place to sleep or slept in a half-way (including now)? No 02/12/2023 Housing Stability Vital Sign Answer Meet e Recorded In the last 12 months, was t here a time when you were not able to pay the mortgage or rent on time? No 03/22/2024 Number of Times Moved in the Last Year Not on fi le 03/22/2024 At any time in the past 12 m [facility], were you homeless or living in a half-way (including now)? No 03/22/2024 Personal Safety Answer Date Recorded Have you ever been in or are you currently in a harmful physical or emotional relationship or is someone making you feel afraid or unsafe? Denies 03/20/2024 Comments No Sex and Gender Information Value Date Recorded Sex Assigned at Not on file Legal Sex Female 10:02 AM MARINE SERVICES TECHNICIAN Gender Identity Not on file Sexual Orientation Not on file Obstetrics History Last Filed Vital Signs Vital Sign Reading Time Taken Comments Blood Pressure 138/86 02/01/2025 10:01 AM CDT Pulse 73 02/01/2025 10:01 AM CDT Temperature 36.3 C (97.3 F) 02/01/2025 10:01 AM CDT Respiratory Rate 17 07/26/2024 3:13 PM MARINE SERVICES TECHNICIAN Oxygen Saturation 96% 02/01/2025 10:01 AM CDT [...] 09/20/2022, 01/06 Medical Devices Implanted Type Area Sales And Marketing Professional Device Identifier Shelf Expiration Date Model / [...] 03/24/2024 5:15 AM CDT us Mary Morgan SLEEVE MAKER LAB BLOOD ORDERABLES Hyun l Result [facility] [address] Department [place] [address] * (ABNORMAL) Hemoglobin A1c (03/21/2024 5:11 AM CDT) Hgb A1C 6.6(H) 4.0 - 5.6 % Estimated Average Glucose 143 mg/dL [facility] Comment: The ADA recommends reporting an estimated Average Glucose (eAG) with all Hemoglobin A1c results using the equation derived from a study of 507 normal and diabetic adults. Minority populations were underrepresented and children were not included. (Diabetes Care 31:5630-6757, 2008). The eAG is not equivalent to a fasting glucose. Blood 03/21/2024 5:11 AM CDT 03/21/2024 5:51 AM CDT us Vance Gomez MD LAB BLOOD ORDERABLES Final Re sult Performing Organization Address [facility] de Phone Number [facility] [address] Department [place] [address] * Lipid panel (03/21/2024 5:11 AM CDT) Pathologist [facility] Cholesterol 179 30 - 199 mg/dL Comment: [...] revised on 2018. Triglycerides 85 <=149 mg/dL [facility] Comment: Interpretive Data Ages < or = [...] revised on 2018. HDL 70 >=40 mg/dL [facility] Comment: Interpretive Data Ages < or = [...] on 2018. LDL, calculated 92 <=129 mg/dL [facility] Comment: Interpretive Data Ages < or = [...] revised on 2018. Non-HDL Cholesterol 109 mg/dL [facility] Comment: Interpretive Data Ages < or = [...] revised on 2018. Chol/HDL ratio 3 [facility] Blood 03/21/2024 5:11 AM CDT 03/21/2024 5:50 AM CDT us Vance Gomez MD LAB BLOOD ORDERABLES Final Re sult [facility] [address] Department [place] [address] from Last 3 Months or Most Recently Relevant to Health Maintenance Insurance [facility] MEDICARE ADVANTAGE [facility] MEDICARE Address: [facility] [address] [place] [address] A[employer] MEDICARE GOLD [facility] MEDICARE ADVANTAGE [facility] MEDICARE ADVANTAGE Advance Directives For more information, please contact: [phone] Documents on File Type Date Recorded Patient Homemaker Companion Expl anation ADVANCE DIRECTIVE 02/11/2023 4:21 PM POWER OF SR VICE PRESIDENT-MEDICAL * Full Code (Latest Code Status on [...] 8:38 AM 07/26/2022 2:17 PM Care Teams District Captain Relationship Specialty Start Date End Date Olvin Muniz MD PCP - General 12/06/16 Yazmin Page, RN Registered Nurse Gastroenterology 01/19/19 Frederick Dean MD Consulting Physician Transplant Hepatology 05/18/20 Mark Au MD [address] [facility] [address] [place] [address] Consulting Physician Gastroenterology 06/12/20 Nancy Honeycutt MD [address] [place] [address] Obstetrics and Gynecology 03/13/23
--- OUTSIDE RECORDS SUMMARY | 2025-06-12 11:27 | XMS_ITS | Encounter Summary ---
Author Organization [facility] Healthcare Address [address] [place] [address] Care Team Providers Care Proofer Black And White Name Role Phone Olvin Muniz MD Primary Care Provider [phone] Yazmin Page RN Unavailable Unavailab Frederick Springer MD Unavailable [phone] Mark Au MD Unavailable Dianne Horta RN Unavailable Nancy Honeycutt MD Unavailable [phone] Encounter Details Date Type Department Care Team (Late st Contact Info) Description 05/16/2020 Telephone [facility] - Imaging [address] [place] [address] Transcribed Order, Provider Social History Tobacco Use Types Packs/Day Years Used Date Smoking Tobacco: Never Smokeless Tobacco: Never Alcohol Use Standard Drinks/Week Comments Yes 0 (1 standard drink = 0.6 oz pur e alcohol) one glass wine month Comments No Sex and Gender Information Value Date Recorded Sex Assigned at Not on file Legal Sex Female 10:02 AM PEER COUNSELOR Gender Identity Not on file Sexual Orientation Not on file documented as of this encounter Plan of Treatment Not on file documented as of this encounter Visit Diagnoses Not on filedocumented in this encounter Care Teams Proofer Black And White Relationship Specialty Start Date End Date Olvin Muniz MD PCP - General 12/06/16 Yazmin Page RN Registered Nurse Gastroenterology 01/19/19 Frederick Dean MD Consulting Physician Transplant Hepatology 05/18/20 Mark Au MD [address] [place] [address] Consulting Physician Gastroenterology 06/12/20 Dianne Horta, RN [address] [place] [address] SHOP Outpatient Stoneworker 02/12/23 03/11/23 Nancy Honeycutt MD [address] [place] [address] Obstetrics and Gynecology 03/13/23 documented as of this encounter
--- OUTSIDE RECORDS SUMMARY | 2025-06-12 11:27 | XMS_ITS | Encounter Summary ---
Author Organization [facility] Address [address] [place] [address] [place] [address] Care Team Providers Care Scheduler Name Role Phone Olvin Muniz MD Primary Care Provider [phone] Encounter Details Date Type Department Care Team (Late st Contact Info) Description 07/18/2023 Lab Requisition [facility] - DermPath Lab [address] [facility] [place] [id number] Dario Strauss MD [address] [facility] [place] [address] Social History Tobacco Use Types Packs/Day Years Used Date Smoking Tobacco: Never Smokeless Tobacco: Never Alcohol Use Standard Drinks/Week Comments Not Currently 0 (1 standard drink = 0.6 oz pur e alcohol) Comments No Sex and Gender Information Value Date Recorded Sex Assigned at Not on file Legal Sex Female 5:31 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 Gender Identity Not on file Sexual Orientation Not on file documented as of this encounter Plan of Treatment Not on file documented as of this encounter Procedures Procedure Name Priority Date/Time Associated Diagnosis Comments DERMATOPATHOLOGY Routine 07/17/2023 12:0 0 AM RADIATION PROTECTION ENGINEER documented in this encounter Results * DERMATOPATHOLOGY (07/17/2023 12:00 AM RADIATION PROTECTION ENGINEER) Case Report Dermatopathology Report Case: [id number] Authorizing Provider: Dario Strauss MD Collected: 07/17/2023 12:00 AM Ordering Location: [facility] DermPath Lab Received: 07/18/2023 08:50 AM Pathologist: Ariadna Ramirez MD Specimen: Skin, right cheek 1:46 PM [facility] Final Diagnosis Specimen A. SKIN, right cheek: EPIDERMOID CYST WITH EVIDENCE OF RUPTURE (L72.0) PRESENT AT MARGIN 1:46 PM [facility]ERMAT[facility] at [address] [facility] Clinical History Cyst. Path# [id number]. Check Margins. 1:46 PM [facility]MAT[facility] Gross Description Specimen A: Received is one formalin filled container labeled with the patient's name and designated right cheek. The specimen consists of a 15x7x7 mm piece of skin. The margin is inked green. The specimen is bisected lengthwise and submitted in 1 cassette. Jar 0. 1:46 PM [facility] Microscopic Description Specimen A. SKIN, right cheek: Within the dermis, there is a space lined by epithelium that resembles normal epidermis and the infundibular portion of the hair follicle. Surrounding this is an infiltrate with neutrophils, histiocytes, and multinucleated giant cells. This lesion is present at the margin of the specimen. 1:46 PM [facility] Disclaimer An external and internal positive and negative controls are appropriate for the histochemical, immunohistochemical and immunofluorescence stain(s) in this case (if any), except where stated explicitly. The performance characteristics of the stain(s) cited in this report were developed and its performance characteristic determined by the Dermatopathology Laboratory at [facility], directed by Dr. Chantel Padgett. These tests need not be, and therefore are not, approved by the [place] Food and Drug Administration. The tests are used for clinical purposes. Billing Codes Specimen Charges Stain Charges 63575 1 1:46 PM [facility] Embedded Images 1:46 PM [facility] Pathology/Cytolog y TISSUE SPECIMEN FROM SKIN / Unknown 07/17/2023 07/18/2023 8:50 AM [facility] us Dario Strauss MD LAB - PATHOLOGY/CYTOLOGY ORDER HEIKE Final Result DERMATOPATHOLOGY LABORATORY [facility] - Department of Dermatology [facility] [address] [place] [address], [address] [phone] documented in this encounter Visit Diagnoses Not on filedocumented in this encounter Care Teams Scheduler Relationship Specialty Start Date End Date Olvin Muniz MD [address] [place] [address] PCP - General Internal Medicine 05/06/19 documented as of this encounter
[2025-06-12 12:07] LABS: Add Urine Microscopic? YES; Appearance Urine Turbid (Clear); Glucose Urine UA Negative (Negative); Nitrate Urine Negative (Negative); Specific Grav Ur 1.020 (1.001-1.035)
[2025-06-12 12:08] LABS: Leukocyte Esterase Ur 2+ LEU/UL (Negative)
--- NOTE | 2025-06-12 12:11 | ED.GENADULT ---
HPI - General Adult General Chief complaint: Urogenital-Female Stated complaint: hematuria Time Seen by Provider: 06/12/25 11:18 History of Present Illness HPI narrative: Patient is a 75-year-old female who presents the ER with concerns for UTI. This morning she developed lower pelvic pressure as well as dysuria and hematuria. No fevers or chills. No vaginal discharge or bleeding. She has had similar symptoms before. No flank pain. No nausea or vomiting. Related Data Home Medications ?Medication ?Instructions ?Recorded ?Confirmed ?Last Taken ?Type glimepiride 2 mg tablet 2 mg PO QAM 03/25/23 04/15/24 Unknown History hydrochlorothiazide 25 mg tablet 25 mg PO DAILY 03/25/23 04/15/24 Unknown History oxycodone 5 mg tablet 5 mg PO Q8H PRN 03/25/23 04/15/24 Unknown History valacyclovir 500 mg tablet 500 mg PO DAILY 03/25/23 04/15/24 Unknown History [id number]-[id number]-[id number] (pork) cap PO 04/14/24 04/15/24 Unknown History 3,000-10,000-14k unit capsule,del rel (Zenpep) atorvastatin 40 mg tablet 40 mg PO DAILY 08/20/24 Unknown History baclofen 10 mg tablet 10 mg PO DAILY 08/20/24 Unknown History nortriptyline 10 mg capsule 10 mg PO DAILY 08/20/24 Unknown History Allergies Allergy/AdvReac Type Severity Reaction Status Date / Time Penicillins AdvReac Intermediate Hives Verified 06/12/25 10:23 Contrast Media AdvReac Intermediate Hives Uncoded 08/20/24 13:26 Shrimp AdvReac Intermediate Swelling Uncoded 08/20/24 13:26 of Lip/Tongue/Throat Review of Systems Review of Systems: All systems reviewed & are unremarkable except as noted in HPI and below Constitutional: Constitutional: Reports no additional constitutional complaints Gastrointestinal: Gastrointestinal: Reports no additional gastrointestinal complaints Genitourinary: Genitourinary: Reports no additional female genitourinary complaints Musculoskeletal: Musculoskeletal: Reports no additional musculoskeletal complaints PMFSH Past Medical History Medical History Depression Diverticula of colon High blood pressure High cholesterol Pancreatic cancer Type 2 DM mild nonproliferative retinopathy, macular edema, uncontrol Surgical History Surgical History H/O: hysterectomy History of hip surgery (~2019) History of pancreatic surgery whipple Family History Family History (Updated 04/14/24 @ 14:49 by Jyothi Hill Juana) Father Hypertension Diabetes mellitus Mother No problems noted. Social History Social History (Updated 04/14/24 @ 15:05 by Mona Feldman [facility]) Smoking status: Never smoker Second hand tobacco smoke exposure: Yes Alcohol intake: never Substance use: current Substance use type: marijuana Do You Feel Safe in your Home?: Yes Lack of Transportation: No Lack of Food: Never True Current Housing: I Have Housing Concerned About Future Housing: No Difficulty Paying Gas/Electric Bills: No Difficulty Paying for Meds: No Currently Unemployed: No Education: Trade/Vocational Certificate Difficulty w/ Childcare or Family Care: No Living arrangements: with family Additional living arrangements comments: 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 HEAD: Normocephalic, atraumatic. CHEST: Clear to auscultation. No respiratory distress. HEART: Regular rate and rhythm. Normal peripheral pulses. ABDOMEN: Soft, nontender, nondistended. No CVA tenderness NEURO: Alert and oriented x3. PSYCH: Normal mood and affect. Course Course Emergency Course: Urinalysis with hematuria and evidence of infection. Positive bacteria and leukocyte esterase. Discharged with cephalexin for hemorrhagic cystitis. Vital Signs Vital signs: Vital Signs Temperature 97.4 F L 06/12/25 11:12 Pulse Rate 85 06/12/25 11:12 Respiratory Rate 16 06/12/25 11:12 Blood Pressure 166/92 H 06/12/25 11:12 Pulse Oximetry 99 06/12/25 11:12 Temperature 97.4 F L 06/12/25 11:12 Pulse Rate 85 06/12/25 11:12 Respiratory Rate 16 06/12/25 11:12 Blood Pressure 166/92 H 06/12/25 11:12 Pulse Oximetry 99 06/12/25 11:12 Medical Decision Making Vital Signs Vital Signs: Vital Signs Temperature 97.4 F L 06/12/25 11:12 Pulse Rate 85 06/12/25 11:12 Respiratory Rate 16 06/12/25 11:12 Blood Pressure 166/92 H 06/12/25 11:12 Pulse Oximetry 99 06/12/25 11:12 Temperature 97.4 F L 06/12/25 11:12 Pulse Rate 85 06/12/25 11:12 Respiratory Rate 16 06/12/25 11:12 Blood Pressure 166/92 H 06/12/25 11:12 Pulse Oximetry 99 06/12/25 11:12 Lab Data Labs: Lab Results 06/12/25 Range/Units 11:40 Urine Color Dark red H (Yellow) Urine Appearance Turbid H (Clear) Urine pH 7.0 (5.0-9.0) Ur Specific Whitefish 1.020 (1.001-1.035) Urine Protein 3+ H (Negative) mg/dL Urine Glucose (UA) Negative (Negative) mg/dL Urine Ketones Negative (Negative) mg/dL Ur Blood (Man) 3+ H (Negative) Urine Nitrate Negative (Negative) Urine Bilirubin Negative (Negative) Urine Urobilinogen 0.2 (<2.0) mg/dL Leukocyte Esterase Rfl 2+ H (Negative) LISSET/UL Urine RBC >100 H (0-2) /hpf Urine WBC 16-20 H (0-3) /hpf Ur Squamous Epith Cells None seen (Few) /hpf Ur Transition Epith Cell Few H (None) /hpf Urine Bacteria 1+ H (None) /hpf Discharge Plan Discharge Clinical Impression: Acute hemorrhagic cystitis Patient Disposition: Home Condition: Stable Instructions: Antibiotic Form, Urinary Tract Infection in Women (ED) Additional Instructions: You should return to the emergency department if you develop severe nausea and vomiting and are unable to keep liquids down, if you develop severe back/flank or stomach pain, or if your symptoms are not clearly improving at home. Patient Language: Guatemalan Prescriptions: New cephalexin 500 mg capsule 500 mg PO Q8H Qty: 21 0RF No Action Zenpep 3,000-10,000 -14,000-unit capsule,delayed release(DR/EC) PO hydrochlorothiazide 25 mg tablet 25 mg PO DAILY valacyclovir 500 mg tablet 500 mg PO DAILY oxycodone 5 mg tablet 5 mg PO Q8H PRN glimepiride 2 mg tablet 2 mg PO QAM Rx Instructions: administer with breakfast fluconazole 150 mg tablet 150 mg PO Q72H Qty: 2 0RF estradiol 0.01 % (0.1 mg/gram) cream 1 g vaginal 2XW Qty: 42.5 5RF atorvastatin 40 mg tablet 40 mg PO DAILY nortriptyline 10 mg capsule 10 mg PO DAILY baclofen 10 mg tablet 10 mg PO DAILY lidocaine 5 % adhesive patch,medicated 1 patch topical DAILY Qty: 15 0RF Rx Instructions: leave on most painful area for up to 12 hrs prednisone 20 mg tablet 40 mg PO DAILY 5 Days Qty: 10 0RF acetaminophen [Tylenol Extra Strength] 500 mg tablet 1,000 mg PO Q6H PRN (Reason: pain) Qty: 50 0RF methocarbamol 750 mg tablet 750 mg PO TID PRN (Reason: muscle spasm) Qty: 30 0RF cyclobenzaprine 10 mg tablet 10 mg PO BID PRN (Reason: muscle spasm) Qty: 14 0RF Follow-up/Referrals: Cristy,Olvin Muñoz MD [Primary Care Provider, Unknown] - 1 Week
[2025-06-12 12:40] VITALS: BP 143/89; PULSE 84; RESP 16; O2SAT 99
== END 2025-06-12 12:43 | disposition home or self-care (01) ==
PROVIDERS: Emergency Medicine; Emergency Provider Emergency Medicine; PCP Internal Medicine
DX: N30.01 Acute cystitis with hematuria (principal); F32.A Depression, unspecified; I10 Essential (primary) hypertension; E78.5 Hyperlipidemia, unspecified; E11.9 Type 2 diabetes mellitus without complications; Z85.07 Personal history of malignant neoplasm of pancreas
CPT/HCPCS: 81001; 87086; 99283

== ENCOUNTER 2025-07-12 12:45 | Outpatient (CLI) | payer MEDICARE, SELFPAY ==
--- NOTE | ~2025-07-12 | XR_ITS ---
XR lumbar spine 2-3V Indication: Radiculopathy, lumbar region Comparison: None Findings: Moderate loss of vertebral height throughout. Grade 1 anterolisthesis of L4 on L5, no acute fracture. Moderate loss of disc at L4-5 and L5-S1. Soft tissues unremarkable Impression: No acute abnormality. Reviewed, dictated and finalized at location P. [place] RATTLE AND LEAK REPAIRER Impression: No acute abnormality.
--- NOTE | ~2025-07-12 | XR_ITS ---
XR_CERV2-3V_CR Indication: Radiculopathy, cervical region Comparison: None Findings: Fusion noted of C5-C6 and C7. Grade 1 retrolisthesis of C3 on C4, no fracture is identified Moderate loss of disc height at C3-4 C4-5. Soft tissues unremarkable Impression: No acute abnormality. Reviewed, dictated and finalized at location P. RGRADUATE ADVISOR Impression: No acute abnormality.
== END 2025-07-12 12:46 | disposition home or self-care (01) ==
PROVIDERS: PCP Internal Medicine; Visit Provider Pain Medicine Interventional Pain Medicine
DX: M43.12 Spondylolisthesis, cervical region (principal); R29.890 Loss of height; Z98.1 Arthrodesis status; M43.16 Spondylolisthesis, lumbar region; M54.12 Radiculopathy, cervical region; M54.16 Radiculopathy, lumbar region
CPT/HCPCS: 72040; 72100

== ENCOUNTER 2025-08-29 13:18 | Emergency (ER) | payer MEDICARE, SELFPAY ==
--- NOTE | ~2025-08-29 | XR_ITS ---
XR chest 1V portable 08/29/2025 14:27 Indication: Cough Procedure: 2 view chest Comparison: 07/05/2023 Findings: Subsegmental bibasilar atelectasis. No focal pneumonia, edema, significant effusion or pneumothorax. No acute osseous abnormality. Heart size normal. Impression: 1: Bibasilar atelectasis. Reviewed, dictated and finalized at location O. ERY ATTENDANT Impression: 1: Bibasilar atelectasis.
[2025-08-29 13:22] VITALS: BP 128/87; PULSE 81; RESP 18; TEMP 36.4; O2SAT 100
--- NOTE | 2025-08-29 14:00 | ED.URI ---
HPI - URI/Sore Throat General Chief Complaint: Upper Respiratory Infection Stated Complaint: cough, congestion, subjective fever x1 week Time Seen by Provider: 08/29/25 13:54 Source: patient Mode of arrival: ambulatory Limitations: no limitations History of Present Illness HPI Narrative: This is a 75-year-old female with history of MS who presents the ED for flu-like symptoms. Patient states for the past week, she has been having nasal congestion and and a cough that was initially nonproductive but is now productive of green sputum. She has had subjective fevers. She states she began losing her voice today and began having body aches couple days ago. No known sick contacts. Denies chest pain, nausea, vomiting Related Data Home Medications ?Medication ?Instructions ?Recorded ?Confirmed ?Last Taken ?Type glimepiride 2 mg tablet 2 mg PO QAM 03/25/23 04/15/24 Unknown History hydrochlorothiazide 25 mg tablet 25 mg PO DAILY 03/25/23 04/15/24 Unknown History oxycodone 5 mg tablet 5 mg PO Q8H PRN 03/25/23 04/15/24 Unknown History valacyclovir 500 mg tablet 500 mg PO DAILY 03/25/23 04/15/24 Unknown History pfclbl-jpjfsutw-rglrett (pork) cap PO 04/14/24 04/15/24 Unknown History 3,000-10,000-14k unit capsule,del rel (Zenpep) atorvastatin 40 mg tablet 40 mg PO DAILY 08/20/24 Unknown History baclofen 10 mg tablet 10 mg PO DAILY 08/20/24 Unknown History nortriptyline 10 mg capsule 10 mg PO DAILY 08/20/24 Unknown History Allergies Allergy/AdvReac Type Severity Reaction Status Date / Time Penicillins AdvReac Intermediate Hives Verified 06/12/25 10:23 Contrast Media AdvReac Intermediate Hives Uncoded 08/20/24 13:26 Shrimp AdvReac Intermediate Swelling Uncoded 08/20/24 13:26 of Lip/Tongue/Throat Review of Systems Review of Systems: All systems reviewed & are unremarkable except as noted in HPI and below PMFSH Past Medical History Medical History Diverticula of colon High cholesterol High blood pressure Type 2 DM mild nonproliferative retinopathy, macular edema, uncontrol Depression Pancreatic cancer Surgical History Surgical History H/O: hysterectomy History of pancreatic surgery whipple History of hip surgery (~2019) Family History Family History Father Hypertension Diabetes mellitus Mother No problems noted. 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 CARDIOVASCULAR: Regular rate and rhythm without murmurs rubs or gallops. ABDOMINAL: Soft, nontender, nondistended, no rebound or guarding MUSCULOSKELETAl: Moves all extremities. No clubbing, cyanosis or edema. NEURO: Awake and alert. Following commands, speech normal, no focal deficits SKIN:: Warm, dry. No rashes lesions or abrasions PSYCHIATRIC: Normal affect/mood, Course Vital Signs Vital signs: Vital Signs Temperature 97.5 F L 08/29/25 13:22 Pulse Rate 81 08/29/25 13:22 Respiratory Rate 18 08/29/25 13:22 Blood Pressure 128/87 08/29/25 13:22 Pulse Oximetry 100 08/29/25 13:22 Oxygen Delivery Room Air 08/29/25 13:22 Temperature 97.5 F L 08/29/25 13:22 Pulse Rate 87 08/29/25 15:03 Respiratory Rate 16 08/29/25 15:03 Blood Pressure 113/91 H 08/29/25 15:03 Pulse Oximetry 100 08/29/25 15:03 Oxygen Delivery Room Air 08/29/25 13:22 [facility] MDM Narrative Medical decision making narrative: 75-year-old female Presenting for flu-like symptoms. On initial evaluation patient was in no acute distress afebrile, hemodynamic stable. Differentials include but are not limited to: Viral syndrome, strep pharyngitis, viral pharyngitis, sinusitis, laryngitis, COMMUNITY SERVICE OFFICER, RPA, pneumonia Notable exam findings: Heart and lungs clear I personally reviewed the patient's lab result. Notable lab findings: Influenza a positive I personally reviewed the patient's images and interpret as follows: Chest x-ray: Normal cardiac silhouette, no consolidations, no pleural effusions, no pulmonary vascular congestion Discussed risks and benefits of Tamiflu with the patient given her age, she does elect to take Tamiflu at this time. She was given a prescription for that and Zofran. She was advised follow-up with her PCP in the next week for re-evaluation. Patient was agreeable to this plan. Given strict return precautions. Differential Diagnosis Differential Diagnosis: Viral syndrome, strep pharyngitis, viral pharyngitis, sinusitis, laryngitis, COMMUNITY SERVICE OFFICER, RPA, pneumonia Lab Data Labs: Lab Results 08/29/25 Range/Units 13:27 Influenza A (RT-PCR) Positive A (Negative) Influenza B (RT-PCR) Negative (Negative) RSV (RT-PCR) Negative (Negative) SARS-CoV-2 RNA (RT-PCR) Negative (Negative) Imaging Data Radiologist's impression: ITS Impressions Chest X-Ray 08/29/25 14:28 Impression: 1: Bibasilar atelectasis. Discharge Plan Discharge Clinical Impression: Influenza A Patient Disposition: Home Condition: Stable Instructions: Antibiotic Form, Influenza (ED) Additional Instructions: You tested positive for influenza a which is likely the cause of your symptoms. Your given a prescription for Tamiflu and Zofran, take this as prescribed. Follow-up with your PCP in the next week for re-evaluation. Return to the ED for any new or worsening symptoms. Patient Language: Welsh Prescriptions: New oseltamivir [Tamiflu] 75 mg capsule 75 mg PO Q12H 5 Days Qty: 10 0RF ondansetron 4 mg tablet,disintegrating 4 mg PO Q8H PRN (Reason: nausea and vomiting) Qty: 12 0RF No Action Zenpep 3,000-10,000 -14,000-unit capsule,delayed release(DR/EC) PO hydrochlorothiazide 25 mg tablet 25 mg PO DAILY valacyclovir 500 mg tablet 500 mg PO DAILY oxycodone 5 mg tablet 5 mg PO Q8H PRN glimepiride 2 mg tablet 2 mg PO QAM Rx Instructions: administer with breakfast fluconazole 150 mg tablet 150 mg PO Q72H Qty: 2 0RF estradiol 0.01 % (0.1 mg/gram) cream 1 g vaginal 2XW Qty: 42.5 5RF atorvastatin 40 mg tablet 40 mg PO DAILY nortriptyline 10 mg capsule 10 mg PO DAILY baclofen 10 mg tablet 10 mg PO DAILY lidocaine 5 % adhesive patch,medicated 1 patch topical DAILY Qty: 15 0RF Rx Instructions: leave on most painful area for up to 12 hrs prednisone 20 mg tablet 40 mg PO DAILY 5 Days Qty: 10 0RF acetaminophen [Tylenol Extra Strength] 500 mg tablet 1,000 mg PO Q6H PRN (Reason: pain) Qty: 50 0RF methocarbamol 750 mg tablet 750 mg PO TID PRN (Reason: muscle spasm) Qty: 30 0RF cyclobenzaprine 10 mg tablet 10 mg PO BID PRN (Reason: muscle spasm) Qty: 14 0RF cephalexin 500 mg capsule 500 mg PO Q8H Qty: 21 0RF Follow-up/Referrals: Cristy,Olvin Muñoz MD [Primary Care Provider, Unknown]
[2025-08-29 14:30] LABS: Influenza A QL RT-PCR Positive (Negative); Influenza B QL RT-PCR Negative (Negative); RSV RNA, RT-PCR Negative (Negative); SARS-CoV-2 RNA PCR Negative (Negative)
[2025-08-29 15:03] VITALS: BP 113/91; PULSE 87; RESP 16; O2SAT 100
--- OUTSIDE RECORDS SUMMARY | 2025-08-29 15:04 | XMS_ITS | Encounter Summary ---
Author Organization [facility] Address [address] [place] [address] [place] [address] Care Team Providers Care Hot Tar Roofer Helper Name Role Phone Olvin Muniz MD Primary Care Provider [phone] Encounter Details Date Type Department Care Team (Late st Contact Info) Description 07/18/2023 Lab Requisition [facility] - DermPath Lab [address] [facility] [place] [id number] Dario Strauss MD [address] [facility] [place] [address] Social History Tobacco Use Types Packs/Day Years Used Date Smoking Tobacco: Never Smokeless Tobacco: Never Alcohol Use Standard Drinks/Week Comments Not Currently 0 (1 standard drink = 0.6 oz pur e alcohol) Comments No Sex and Gender Information Value Date Recorded Sex Assigned at Not on file 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 Gender Identity Not on file Sexual Orientation Not on file documented as of this encounter Plan of Treatment Not on file documented as of this encounter Procedures Procedure Name Priority Date/Time Associated Diagnosis Comments DERMATOPATHOLOGY Routine 07/17/2023 12:0 0 AM PLATE PAINTER APPRENTICE documented in this encounter Results * DERMATOPATHOLOGY (07/17/2023 12:00 AM PLATE PAINTER APPRENTICE) Case Report Dermatopathology Report Case: [id number] Authorizing Provider: Dario Strauss MD Collected: 07/17/2023 12:00 AM Ordering Location: [facility] DermPath Lab Received: 07/18/2023 08:50 AM Pathologist: Ariadna Ramirez MD Specimen: Skin, right cheek 1:46 PM [facility] DERMATOPATHOLOGY LABORATORY Final Diagnosis Specimen A. SKIN, right cheek: EPIDERMOID CYST WITH EVIDENCE OF RUPTURE (L72.0) PRESENT AT MARGIN 1:46 PM [facility] DERMATOPATHOLOGY LABORATORY at [address] [facility] Clinical History Cyst. Path# [id number]. Check Margins. 1:46 PM [facility] DERMATOPATHOLOGY LABORATORY Gross Description Specimen A: Received is one formalin filled container labeled with the patient's name and designated right cheek. The specimen consists of a 15x7x7 mm piece of skin. The margin is inked green. The specimen is bisected lengthwise and submitted in 1 cassette. Jar 0. 1:46 PM [facility] DERMATOPATHOLOGY LABORATORY Microscopic Description Specimen A. SKIN, right cheek: Within the dermis, there is a space lined by epithelium that resembles normal epidermis and the infundibular portion of the hair follicle. Surrounding this is an infiltrate with neutrophils, histiocytes, and multinucleated giant cells. This lesion is present at the margin of the specimen. 1:46 PM [facility] DERMATOPATHOLOGY LABORATORY Disclaimer An external and internal positive and negative controls are appropriate for the histochemical, immunohistochemical and immunofluorescence stain(s) in this case (if any), except where stated explicitly. The performance characteristics of the stain(s) cited in this report were developed and its performance characteristic determined by the Dermatopathology Laboratory at [facility], directed by Dr. Chantel Padgett. These tests need not be, and therefore are not, approved by the [place] Food and Drug Administration. The tests are used for clinical purposes. Billing Codes Specimen Charges Stain Charges 15583 1 1:46 PM [facility] DERMATOPATHOLOGY LABORATORY Embedded Images 1:46 PM [facility] DERMATOPATHOLOGY LABORATORY Pathology/Cytolog y TISSUE SPECIMEN FROM SKIN / Unknown 07/17/2023 07/18/2023 8:50 AM [facility] us Dario Strauss MD LAB - PATHOLOGY/CYTOLOGY ORDER HEIKE Final Result DERMATOPATHOLOGY LABORATORY [facility] - Department of Dermatology [facility] Specialized Medicine [address] [place] [address], [address] [phone] documented in this encounter Visit Diagnoses Not on filedocumented in this encounter Care Teams Hot Tar Roofer Helper Relationship Specialty Start Date End Date Olvin Muniz MD [address] [place] [address] PCP - General Internal Medicine 05/06/19 documented as of this encounter
--- OUTSIDE RECORDS SUMMARY | 2025-08-29 15:04 | XMS_ITS | Clinical Summary ---
Author Organization [facility] [address] Address [address] [facility] [place] [address] Care Team Providers Care Mortgage Or Loan Underwriter Name Role Phone Olvin Muniz MD Primary Care Provider Yazmin Page RN Unavailable Unavailab Frederick Springer MD Unavailable [phone] Mark Au MD Unavailable Nancy Honeycutt MD Unavailable Allergies Active Allergy Reactions Criticality Noted Date Comments Codeine Hives Medium 07/09/2021 Fish Containing Products Anaphylaxis High 05/06/2019 Iodine Unknown 03/17/2017 Welts Penicillins Itching Low Watery eyes Medications valACYclovir (VALTREX) 500 mg tabletIndicati ons:Prophylaxi s, Medical Take 1 tablet (500 mg total) by mouth every morning 7 Active blood glucose diagnostic (OneTouch Verio test strips) strip OneTouch Verio test strips USE TO TEST BLOOD SUGAR ONCE DAILY Active glimepiride (AMARYL) 2 mg tablet Take 1 tablet (2 mg total) by mouth 2 (two) times a day 2 Active oxyCODONE-acet aminophen (PERCOCET) 5-325 mg per tablet Take 1 [...] 11 4 Active sertraline (ZOLOFT) 100 mg tabletIndicati ons:Moderate recurrent major depression (HCC) Take 1 tablet (100 mg total) by mouth daily 90 tablet 3 4 Active nortriptyline (PAMELOR) 10 mg capsuleIndicat ions:Chronic abdominal pain TAKE 4 CAPSULES(40 MG) BY MOUTH EVERY NIGHT 120 capsule 5 5 Active Additional Information Patient taking differently: 40 mg oral Nightly, Reported on 02/01/2025 ALPRAZolam (XANAX) 0.5 mg tablet Take 1 tablet (0.5 mg total) by mouth as needed Active cyclobenzaprin e (FLEXERIL) 5 mg tablet Take 1 tablet (5 mg total) by mouth 3 (three) times a day as needed for muscle spasms Active hydroCHLOROthi azide (HYDRODIURIL) 25 mg tablet Take 1 tablet (25 mg total) by mouth daily 5 Active simvastatin (ZOCOR) 5 mg tablet Take 1 tablet (5 mg total) by mouth nightly Active pancrelipase (Zenpep) 25,000 units of lipase per capsule Take two with meals and one with snacks, five minutes after beginning to eat. Max 10 capsules per day 900 capsule 3 5 Active pancrelipase (Zenpep) 25,000 units of lipase per capsule Take two with meals and one with snacks, five minutes after beginning to eat. 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 [...] 09/29/2017 Assessment & Plan (08/02/2024 5:19 PM GAGE MAKER): Low back pain occasionally radiating down her [...] Cymbalta. Assessment & Plan (07/17/2023 6:26 AM GAGE MAKER): Low back pain occasionally radiating down her [...] needed Assessment & Plan (10/24/2021 8:36 AM GAGE MAKER): Low back pain radiating down her bilateral [...] spine. Assessment & Plan (10/19/2018 8:58 AM GAGE MAKER): No benefit with repeated lumbar steroid injections Cymbalta to 60 mg BID Hydrocodone/APAP prn Increase Neurontin to 600 mg t.i.d. Physical therapy prescribed Requested her MRI of her lumbosacral spine CD from [facility] to assess whether surgery would be an option. Assessment & Plan (04/14/2018 7:24 AM CDT): No benefit with repeated lumbar steroid injections Cymbalta to 60 mg BID Hydrocodone/APAP prn Increase Neurontin to 600 mg t.i.d. Physical therapy prescribed Requested her MRI of her lumbosacral spine CD from [facility] to assess whether surgery would be an option. Assessment & Plan (09/29/2017 11:17 AM GAGE MAKER): Increase Cymbalta to 60 mg BID Hydrocodone/APAP prn Appt with pain management locally. Multiple sclerosis 03/17/2017 Assessment & Plan (08/02/2024 5:18 PM GAGE MAKER): NMO antibody negative 10/19/18 Off disease-modifying therapy [...] 2024 Assessment & Plan (07/17/2023 6:25 AM GAGE MAKER): NMO antibody negative 10/19/18 Off disease-modifying therapy [...] Will need to coordinate care with Dr. Fredercik Dean. Risks and benefits of dimethyl fumarate [...] COVID-19. Assessment & Plan (10/24/2021 8:35 AM GAGE MAKER): NMO antibody negative 10/19/18 Off disease-modifying therapy [...] 2020. Assessment & Plan (11/03/2020 7:15 AM GAGE MAKER): NMO antibody negative 10/19/18 Off disease-modifying therapy [...] needed. Assessment & Plan (10/20/2018 7:31 PM GAGE MAKER): On Aubagio 14 mg daily. Risks discussed [...] 2018 Assessment & Plan (09/29/2017 11:18 AM GAGE MAKER): Aubagio 14 mg daily. Risks discussed including hepatotoxicity. Exercise encouraged Vit D supplement MRI brain and cervical spine Jun 2018 Assessment & Plan (03/17/2017 6:52 PM CDT): Aubagio 14 mg daily. Risks discussed incl hepatotoxicity. Exercise Vit D supplement Osteoarthritis of left hip 03/17/2017 Assessment & Plan (10/20/2018 7:34 PM GAGE MAKER): Positive left hip Chad's sign 04/01/17 Left [...] recommended Assessment & Plan (09/29/2017 11:16 AM GAGE MAKER): Ortho appt. Assessment & Plan (03/17/2017 6:53 PM CDT): Will screen for osteoarthritis. Left hip bursitis or lumbar radiculopathy also possible. If X-ray normal, ortho eval. Moderate recurrent major depression 03/17/2017 Assessment & Plan (08/02/2024 5:20 PM GAGE MAKER): Increase sertraline to 100 mg daily Previously treated with duloxetine 60 mg (tolerated, but discontinued) Assessment & Plan (01/01/2023 12:16 PM CDT): Off duloxetine 60 mg nightly for 1 month. If mood worsens, will resume duloxetine. Assessment & Plan (06/28/2022 8:01 AM CDT): Duloxetine 60 mg nightly Assessment & Plan (10/24/2021 8:37 AM GAGE MAKER): Cymbalta 60 mg twice a day Assessment & Plan (05/03/2021 4:10 PM CDT): Cymbalta 60 mg twice a day Assessment & Plan (11/03/2020 7:15 AM GAGE MAKER): Restart Cymbalta 30 mg at night for a week then 60 mg at night Assessment & Plan (04/24/2020 6:02 PM CDT): Increase Cymbalta 60 mg twice a day Assessment & Plan (10/19/2018 8:59 AM GAGE MAKER): Cymbalta 60 mg BID Assessment & Plan (04/14/2018 7:22 AM CDT): Cymbalta 60 mg BID Assessment & Plan (09/29/2017 11:19 AM GAGE MAKER): Cymbalta 60 mg BID Assessment & Plan (03/17/2017 6:52 PM CDT): Cymbalta 60 mg daily Resolved Problems Problem Noted Date Diagnosed Date Resolved Date Dehydration 08/09/2019 04/24/2020 Pancreatic mass 05/14/2019 04/24/2020 Overview (05/14/2019): Added automatically from request for surgery [id number] Abnormal MRI 01/19/2019 04/24/2020 Overview (01/19/2019): Added automatically from request for surgery [id number] Neurogenic bladder 04/14/2018 0 Assessment & Plan (10/19/2018 8:59 AM GAGE MAKER): Urology evaluation; referral to Dr. Chaparro Assessment & Plan (04/14/2018 7:25 AM CDT): Urology evaluation; referral to Dr. Chaparro Vitamin D deficiency 09/29/2017 018 Encounters Date Type Department Care Team Description 08/12/2025 Orders Only [facility] Medicine Surgery [address] [place] [address] [address] [phone] Kalina Rock PA 07/25/2025 Orders Only [facility] Medicine Surgery [address] [place] [address] [address] [phone] Kalina Rock PA from Last 3 Months [...] pur e alcohol) one glass wine month [facility] Utilities Answer Date Recorded In the past 12 months has [place], gas, oil, or water company threatened to shut off services in your [...] often do you attend chur ch or muslim services? More than 4 times per year 03/22/2024 Do you belong to any clubs o r organizations such as judaism groups, unions, fraternal or athletic groups, or [...] place to sleep or slept in a skilled nursing (including now)? No 02/12/2023 Housing Stability Vital Sign Answer Meet e Recorded In the last 12 months, was t here a time when you were not able to pay the mortgage or rent on time? No 03/22/2024 Number of Times Moved in the Last Year Not on fi le 03/22/2024 At any time in the past 12 m [facility], were you homeless or living in a skilled nursing (including now)? No 03/22/2024 Personal Safety Answer Date Recorded Have you ever been in or are you currently in a harmful physical or emotional relationship or is someone making you feel afraid or unsafe? Denies 03/20/2024 Comments No Sex and Gender Information Value Date Recorded Sex Assigned at Not on file Legal Sex Female 10:02 AM GAGE MAKER Gender Identity Not on file Sexual Orientation Not on file Last Filed Vital Signs Vital Sign Reading Time Taken Comments Blood Pressure 138/86 02/01/2025 10:01 AM CDT Pulse 73 02/01/2025 10:01 AM CDT Temperature 36.3 C (97.3 F) 02/01/2025 10:01 AM CDT Respiratory Rate 17 07/26/2024 3:13 PM GAGE MAKER Oxygen Saturation 96% 02/01/2025 10:01 AM CDT [...] Dilated Eye Exam 1950 Foot Exam 1950 Hepatitis B Screening 02/19/1970 Well Visit 65+ 02/19/2017 Zoster Vaccine (2 of 2) 06/15/2024 04/20/2024 Hemoglobin A1C 09/21/2024 03/21/2024, 06/0 01/2023, 02/10/2023, Additional history exists Osteoporosis Screening-Bone Density Scan 01/17/2025 01/17/2023, 05/07/2021 Lipid Panel 03/21/2025 03/21/2024, 06/01/2023, 06/18/2019 Fall Risk Assessment 03/24/2025 03/24/2024 eGFR 03/24/2025 03/24/2024, 03/08, 03/22/2024, Additional history exists Covid-19 Vaccine (5 - 2024-2 6 season) 2025 04/22/2022, 07/04/2021, 11/14/2020, Additional history exists DTaP/Tdap/Td Vaccine (2 - Td or Tdap) 05/01/2033 05/01/2023 Pneumococcal vaccine 65+ Completed 09/20/2022, 01/06 Influenza Vaccine Completed 07/04/2025, , 05/29/2021, Additional history exists Medical Devices Implanted Type Area Petroleum Transport Driver Device Identifier Shelf Expiration Date Model / [...] 4:06 AM CDT 03/24/2024 5:15 AM CDT Mary Morgan NP LAB BLOOD ORDERABLES Hyun l Result Performing Organization Address [facility] de Phone Number [facility] [address] [place] [address] * (ABNORMAL) Hemoglobin A1c (03/21/2024 5:11 AM CDT) Hgb A1C 6.6(H) 4.0 - 5.6 % Estimated Average Glucose 143 mg/dL [facility] Comment: The ADA recommends reporting an estimated Average Glucose (eAG) with all Hemoglobin A1c results using the equation derived from a study of 507 normal and diabetic adults. Minority populations were underrepresented and children were not included. (Diabetes Care 31:4844-8020, 2008). The eAG is not equivalent to a fasting glucose. Blood 03/21/2024 5:11 AM CDT 03/21/2024 5:51 AM CDT Vance Gomez MD LAB BLOOD ORDERABLES Final Re sult Performing Organization Address [facility] de Phone Number [facility] [address] Department [place] [address] * Lipid panel (03/21/2024 5:11 AM CDT) Cholesterol 179 30 - 199 mg/dL Comment: [...] revised on 2018. Triglycerides 85 <=149 mg/dL [facility] Comment: Interpretive Data Ages < [...] revised on 2018. HDL 70 >=40 mg/dL [facility] Comment: Interpretive Data Ages < [...] on 2018. LDL, calculated 92 <=129 mg/dL [facility] Comment: Interpretive Data Ages < [...] revised on 2018. Non-HDL Cholesterol 109 mg/dL [facility] Comment: Interpretive Data Ages < [...] last revised on 2018. Chol/HDL ratio 3 [facility] Blood 03/21/2024 5:11 AM CDT 03/21/2024 5:50 AM CDT us Vance Gomez MD LAB BLOOD ORDERABLES Final Re sult [facility] [address] [place] [address] from Last 3 Months or Most Recently Relevant to Health Maintenance Insurance [facility] MEDICARE ADVANTAGE [facility] MEDICARE GOLD [id number] [place] [address] MEDICARE ADVANTAGE [facility] MEDICARE ADVANTAGE Advance Directives For more information, please contact: [phone] Documents on File Type Date Recorded Patient Side Laster Staple Expl anation ADVANCE DIRECTIVE 02/11/2023 4:21 PM POWER OF MORTUARY OPERATIONS MANAGER-MEDICAL * Full Code (Latest Code Status on [...] 8:38 AM 07/26/2022 2:17 PM Care Teams Mortgage Or Loan Underwriter Relationship Specialty Start Date End Date Olvin Muniz MD PCP - General 12/06/16 Yazmin Page RN Registered Nurse Gastroenterology 01/19/19 Frederick Dean MD Consulting Physician Transplant Hepatology 05/18/20 Mark Au MD [address] [facility] [address] [place] [address] Consulting Physician Gastroenterology 06/12/20 Nancy Honeycutt MD [address] [place] [address] Obstetrics and Gynecology 03/13/23
--- OUTSIDE RECORDS SUMMARY | 2025-08-29 15:04 | XMS_ITS | Clinical Summary ---
Author Organization [facility] Facility Address [address] [address] Care Team Providers Care Laborer High Density Press Name Role Phone Cristy Bah MD Primary Care Provider [phone] Encounters Date Type Department Care Team Description 07/26/2025 2:00 PM CEMENT AND CONCRETE PLANT WORKER Office Visit [facility] [address] [place] [phone] Edward Pacheco DO Stage 3 chronic kidney disease, not otherwise specified (HCC) (Primary Dx); Major depression in remission (HCC); Gastritis; Chronic pancreatitis (HCC); Pancreatic cancer (HCC); Diastolic dysfunction; Hypertensive chronic kidney disease; Type 2 diabetes mellitus with diabetic chronic kidney disease, 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); Pure hypercholesterolemia , not otherwise specified 07/13/2025 Documentation Only [facility], [facility] [address] [phone] Edward Pacheco DO from Last 3 Months Social History Tobacco Use Types Packs/Day Years Used Date Smoking Tobacco: Never Assessed Comments Unknown Sex and Gender Information Value Date Recorded Sex Assigned at Not on file Legal Sex Female 12:38 PM EDT Gender Identity Not on file Sexual Orientation Not on file Last Filed Vital Signs Vital Sign Reading Time Taken Comments Blood Pressure 130/80 07/26/2025 2:00 PM CEMENT AND CONCRETE PLANT WORKER Pulse 74 07/26/2025 2:00 PM CEMENT AND CONCRETE PLANT WORKER Temperature 36.1 C (97 F) 07/26/2025 2:00 PM CEMENT AND CONCRETE PLANT WORKER Respiratory Rate 18 07/26/2025 2:00 PM CEMENT AND CONCRETE PLANT WORKER Oxygen Saturation 98% 07/26/2025 2:00 PM CEMENT AND CONCRETE PLANT WORKER Inhaled Oxygen Concentration - - Weight 72.8 kg (160 lb 9.6 oz) 07/26/2025 2:00 P M CEMENT AND CONCRETE PLANT WORKER Height - - Body Mass Index - - Plan of Treatment Upcoming Encounters Date Type Department Care Team (Late st Contact Info) Description 01/24/2026 1:15 PM CDT [facility] [address] [facility] [address] [place] [address] Edward Pacheco DO [address] [facility] [address] [place] [address] Health Maintenance Due Date Last Done Comments Breast Cancer Screening 1950 Colorectal Cancer Screening: Annual FOBT 02/19/2001 Colorectal Cancer Screening: Colonoscopy 02/19/2001 Colorectal Cancer Screening: Sigmoidoscopy 02/19/2001 Diabetes: Hemoglobin A1C 12/06/2024 03/21/2024 Diabetes: Ophthalmology Exam 12/06/2024 Diabetes: Pedal Pulse Checked 12/06/2024 Diabetes: Sensory Foot Exam 12/06/2024 Diabetes: Visual Foot Exam 12/06/2024 Pneumococcal Vaccine: 50+ Years Completed 09/20/2022, 01/16/2018 Influenza Vaccine Completed 07/04/2025, , 05/29/2021, Additional history exists Hepatitis B Vaccine Aged Out No longe r eligible based on patient's age to complete this topic Insurance [facility] [place] [address] Advance Directives Documents on File Type Date Recorded Patient Tobacco Educator Expl anation Advance Care Planning 03/10/2025 9:22 AM Care Teams Laborer High Density Press Relationship Specialty Start Date End Date Cristy Bah MD [facility] [place] [id number] PCP - General Internal Medicine 12/06/24
--- OUTSIDE RECORDS SUMMARY | 2025-08-29 15:04 | XMS_ITS | Clinical Summary ---
Author Organization [facility] [employer] Address [address] [place] [address] [place] [address] Care Team Providers Care Link Trainer Name Role Phone Olvin Muniz MD Primary Care Provider [phone] Source Comments [facility],non-owned Affiliates and Associated Physician Practices is amultiple site organization consisting of ambulatory clinics and hospital sitesin [place], [place], [place] and [place]. This disclosure is being madepursuant to the Care Everywhere program and may not contain all information available regarding this patient. Last updated 18.[facility] [employer] Allergies Active Allergy Reactions Criticality Noted [...] on file Legal Sex Female 5:31 PM HANDS PARTER Gender Identity Not on file Sexual Orientation [...] beba Non-reac tive 05/06/2019 7:40 PM CDT [facility] Comment: Hepatitis C Antibody screen indicates [...] MD LAB - CHEMISTRY ORDERABLES Final Result [address] [phone] from Last 3 Months or Most Recently Relevant to Health Maintenance Insurance [employer] MEDICARE ADV Care Teams Link Trainer Relationship Specialty Start Date End Date Olvin Muniz MD [address] [facility] [address] [place] [address] PCP - General Internal Medicine 05/06/19
--- OUTSIDE RECORDS SUMMARY | 2025-08-29 15:04 | XMS_ITS | Encounter Summary ---
Author Organization [facility] Healthcare Address [address] [place] [address] Care Team Providers Care Environmental Monitoring Technician Name Role Phone Olvin Muniz MD Primary Care Provider [phone] Yazmin Page RN Unavailable Unavailab Frederick Springer MD Unavailable [phone] Mark Au MD Unavailable Dianne Horta RN Unavailable [phone] Nancy Honeycutt MD Unavailable [phone] Encounter Details Date Type Department Care Team (Late st Contact Info) Description 05/16/2020 Telephone [facility] - Imaging [address] [place] [address] Transcribed Order, Provider Social History Tobacco Use Types Packs/Day Years Used Date Smoking Tobacco: Never Smokeless Tobacco: Never Alcohol Use Standard Drinks/Week Comments Yes 0 (1 standard drink = 0.6 oz pur e alcohol) one glass wine month Comments No Sex and Gender Information Value Date Recorded Sex Assigned at Not on file Legal Sex Female 10:02 AM CORPORATE PLANNER Gender Identity Not on file Sexual Orientation Not on file documented as of this encounter Plan of Treatment Not on file documented as of this encounter Visit Diagnoses Not on filedocumented in this encounter Care Teams Environmental Monitoring Technician Relationship Specialty Start Date End Date Olvin Muniz MD PCP - General 12/06/16 Yazmin Page RN Registered Nurse Gastroenterology 01/19/19 Frederick Dean MD Consulting Physician Transplant Hepatology 05/18/20 Mark Au MD [address] [place] [address] Consulting Physician Gastroenterology 06/12/20 Dianne Horta, RN [address] [place] [address] SHOP Outpatient Landscape Gardener 02/12/23 03/11/23 Nancy Honeycutt MD [address] [place] [address] Obstetrics and Gynecology 03/13/23 documented as of this encounter
--- OUTSIDE RECORDS SUMMARY | 2025-08-29 15:54 | XMS_ITS | Encounter Summary ---
Author Organization [facility] Healthcare Address [address] [place] [address] Care Team Providers Care Abrasive Water Jet Cutter Operator Name Role Phone Olvin Muniz MD Primary Care Provider [phone] Yazmin Page RN Unavailable Unavailab Frederick Springer MD Unavailable [phone] Mark Au MD Unavailable Dianne Horta RN Unavailable [phone] Nancy Honeycutt MD Unavailable [phone] Encounter Details Date Type Department Care Team (Late st Contact Info) Description 05/16/2020 Telephone [facility] - Imaging [address] [place] [address] Transcribed Order, Provider Social History Tobacco Use Types Packs/Day Years Used Date Smoking Tobacco: Never Smokeless Tobacco: Never Alcohol Use Standard Drinks/Week Comments Yes 0 (1 standard drink = 0.6 oz pur e alcohol) one glass wine month Comments No Sex and Gender Information Value Date Recorded Sex Assigned at Not on file Legal Sex Female 10:02 AM SURVEILLANCE SENSOR OFFICER Gender Identity Not on file Sexual Orientation Not on file documented as of this encounter Plan of Treatment Not on file documented as of this encounter Visit Diagnoses Not on filedocumented in this encounter Care Teams Abrasive Water Jet Cutter Operator Relationship Specialty Start Date End Date Olvin Muniz MD PCP - General 12/06/16 Yazmin Page RN Registered Nurse Gastroenterology 01/19/19 Frederick Dean MD Consulting Physician Transplant Hepatology 05/18/20 Mark Au MD [address] [place] [address] Consulting Physician Gastroenterology 06/12/20 Dianne Horta, RN [address] [place] [address] SHOP Outpatient Kitchen Runner 02/12/23 03/11/23 Nancy Honeycutt MD [address] [place] [address] Obstetrics and Gynecology 03/13/23 documented as of this encounter
--- OUTSIDE RECORDS SUMMARY | 2025-08-29 15:55 | XMS_ITS | Clinical Summary ---
Author Organization [facility] Facility Address [address] [address] Care Team Providers Care Slot Manager Name Role Phone Cristy Bah MD Primary Care Provider [phone] Encounters Date Type Department Care Team Description 07/26/2025 2:00 PM NURSE PRN Office Visit [employer] 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 [address] [address] Edward Pacheco DO from Last 3 Months [...] Comments Blood Pressure 130/80 07/26/2025 2:00 PM NURSE PRN Pulse 74 07/26/2025 2:00 PM NURSE PRN Temperature 36.1 C (97 F) 07/26/2025 2:00 PM NURSE PRN Respiratory Rate 18 07/26/2025 2:00 PM NURSE PRN Oxygen Saturation 98% 07/26/2025 2:00 PM NURSE PRN Inhaled Oxygen Concentration - - Weight 72.8 kg (160 lb 9.6 oz) 07/26/2025 2:00 P M NURSE PRN Height - - Body Mass Index - - Plan of Treatment Upcoming Encounters Date Type Department Care Team (Late st Contact Info) Description 01/24/2026 1:15 PM CDT [facility] [address] [facility] [address] [place] [address] Edward Pacheco DO [address] [facility] [address] [place] [address] Health Maintenance Due Date Last Done Comments [...] patient's age to complete this topic Insurance [facility] Medicare Advance Directives Documents on File Type Date Recorded Patient Door Slinger Expl anation Advance Care Planning 03/10/2025 9:22 AM Care Teams Slot Manager Relationship Specialty Start Date End Date Cristy Bah MD [facility] [place] [id number] PCP - General Internal Medicine 12/06/24
--- OUTSIDE RECORDS SUMMARY | 2025-08-29 15:55 | XMS_ITS | Clinical Summary ---
Author Organization [facility] Address [address] [place] [address] Care Team Providers Care Marine Fuel Dock Attendant Name Role Phone Olvin Muniz MD Primary Care Provider Yazmin Page RN Unavailable Unavailab Frederick Springer MD Unavailable [phone] Mark Au MD Unavailable Nancy Honeycutt MD [...] (07/16/2022): Added automatically from request for surgery [id number] Thoracic spine pain 09/12/2021 Myalgia 09/12/2021 Lumbosacral [...] (06/04/2019): Added automatically from request for surgery [id number] Assessment & Plan (08/02/2024 5:19 PM CONVENIENCE STORE MANAGER): 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 [...] 09/29/2017 Assessment & Plan (08/02/2024 5:19 PM CONVENIENCE STORE MANAGER): Low back pain occasionally radiating down her [...] Cymbalta. Assessment & Plan (07/17/2023 6:26 AM CONVENIENCE STORE MANAGER): Low back pain occasionally radiating down her [...] needed Assessment & Plan (10/24/2021 8:36 AM CONVENIENCE STORE MANAGER): Low back pain radiating down her bilateral [...] spine. Assessment & Plan (10/19/2018 8:58 AM CONVENIENCE STORE MANAGER): No benefit with repeated lumbar steroid injections Cymbalta to 60 mg BID Hydrocodone/APAP prn Increase Neurontin to 600 mg t.i.d. Physical therapy prescribed Requested her MRI of her lumbosacral spine CD from [facility] to assess whether surgery would be an option. Assessment & Plan (04/14/2018 7:24 AM CDT): No benefit with repeated lumbar steroid injections Cymbalta to 60 mg BID Hydrocodone/APAP prn Increase Neurontin to 600 mg t.i.d. Physical therapy prescribed Requested her MRI of her lumbosacral spine CD from [facility] to assess whether surgery would be an option. Assessment & Plan (09/29/2017 11:17 AM CONVENIENCE STORE MANAGER): Increase Cymbalta to 60 mg BID Hydrocodone/APAP prn Appt with pain management locally. Multiple sclerosis 03/17/2017 Assessment & Plan (08/02/2024 5:18 PM CONVENIENCE STORE MANAGER): NMO antibody negative 10/19/18 Off disease-modifying therapy [...] 2024 Assessment & Plan (07/17/2023 6:25 AM CONVENIENCE STORE MANAGER): NMO antibody negative 10/19/18 Off disease-modifying therapy [...] COVID-19. Assessment & Plan (10/24/2021 8:35 AM CONVENIENCE STORE MANAGER): NMO antibody negative 10/19/18 Off disease-modifying therapy [...] 2020. Assessment & Plan (11/03/2020 7:15 AM CONVENIENCE STORE MANAGER): NMO antibody negative 10/19/18 Off disease-modifying therapy [...] needed. Assessment & Plan (10/20/2018 7:31 PM CONVENIENCE STORE MANAGER): On Aubagio 14 mg daily. Risks discussed [...] 2018 Assessment & Plan (09/29/2017 11:18 AM CONVENIENCE STORE MANAGER): Aubagio 14 mg daily. Risks discussed including hepatotoxicity. Exercise encouraged Vit D supplement MRI brain and cervical spine Jun 2018 Assessment & Plan (03/17/2017 6:52 PM CDT): Aubagio 14 mg daily. Risks discussed incl hepatotoxicity. Exercise Vit D supplement Osteoarthritis of left hip 03/17/2017 Assessment & Plan (10/20/2018 7:34 PM CONVENIENCE STORE MANAGER): Positive left hip Chad's sign 04/01/17 Left [...] recommended Assessment & Plan (09/29/2017 11:16 AM CONVENIENCE STORE MANAGER): Ortho appt. Assessment & Plan (03/17/2017 6:53 PM CDT): Will screen for osteoarthritis. Left hip bursitis or lumbar radiculopathy also possible. If X-ray normal, ortho eval. Moderate recurrent major depression 03/17/2017 Assessment & Plan (08/02/2024 5:20 PM CONVENIENCE STORE MANAGER): Increase sertraline to 100 mg daily Previously treated with duloxetine 60 mg (tolerated, but discontinued) Assessment & Plan (01/01/2023 12:16 PM CDT): Off duloxetine 60 mg nightly for 1 month. If mood worsens, will resume duloxetine. Assessment & Plan (06/28/2022 8:01 AM CDT): Duloxetine 60 mg nightly Assessment & Plan (10/24/2021 8:37 AM CONVENIENCE STORE MANAGER): Cymbalta 60 mg twice a day Assessment & Plan (05/03/2021 4:10 PM CDT): Cymbalta 60 mg twice a day Assessment & Plan (11/03/2020 7:15 AM CONVENIENCE STORE MANAGER): Restart Cymbalta 30 mg at night for a week then 60 mg at night Assessment & Plan (04/24/2020 6:02 PM CDT): Increase Cymbalta 60 mg twice a day Assessment & Plan (10/19/2018 8:59 AM CONVENIENCE STORE MANAGER): Cymbalta 60 mg BID Assessment & Plan (04/14/2018 7:22 AM CDT): Cymbalta 60 mg BID Assessment & Plan (09/29/2017 11:19 AM CONVENIENCE STORE MANAGER): Cymbalta 60 mg BID Assessment & Plan (03/17/2017 6:52 PM CDT): Cymbalta 60 mg daily Resolved Problems Problem Noted Date Diagnosed Date Resolved Date Dehydration 08/09/2019 04/24/2020 Pancreatic mass 05/14/2019 04/24/2020 Overview (05/14/2019): Added automatically from request for surgery [id number] Abnormal MRI 01/19/2019 04/24/2020 Overview (01/19/2019): Added automatically from request for surgery [id number] Neurogenic bladder 04/14/2018 0 Assessment & Plan (10/19/2018 8:59 AM CONVENIENCE STORE MANAGER): Urology evaluation; referral to Dr. Chaparro Assessment & Plan (04/14/2018 7:25 AM CDT): Urology evaluation; referral to Dr. Chaparro Vitamin D deficiency 09/29/2017 018 Encounters Date Type Department Care Team Description 08/12/2025 Orders Only [facility] Medicine Surgery [address] [place] [address] [address] [phone] Kalina Rock PA 07/25/2025 Orders Only [facility] Medicine Surgery [address] [place] [address] [address] [address] Kalina Rock PA from Last 3 Months [...] pur e alcohol) one glass wine month [facility] Utilities Answer Date Recorded In the past 12 months has [employer], gas, oil, or water company threatened to [...] often do you attend chur ch or lutheran services? More than 4 times per year 03/22/2024 Do you belong to any clubs o r organizations such as bahai groups, unions, fraternal or athletic groups, or [...] place to sleep or slept in a alf (including now)? No 02/12/2023 Housing Stability Vital Sign Answer Meet e Recorded In the last 12 months, was t here a time when you were not able to pay the mortgage or rent on time? No 03/22/2024 Number of Times Moved in the Last Year Not on fi le 03/22/2024 At any time in the past 12 m [facility], were you homeless or living in a alf (including now)? No 03/22/2024 Personal Safety Answer Date Recorded Have you ever been in or are you currently in a harmful physical or emotional relationship or is someone making you feel afraid or unsafe? Denies 03/20/2024 Comments No Sex and Gender Information Value Date Recorded Sex Assigned at Not on file Legal Sex Female 10:02 AM CONVENIENCE STORE MANAGER Gender Identity Not on file Sexual Orientation Not on file Last Filed Vital Signs Vital Sign Reading Time Taken Comments Blood Pressure 138/86 02/01/2025 10:01 AM CDT Pulse 73 02/01/2025 10:01 AM CDT Temperature 36.3 C (97.3 F) 02/01/2025 10:01 AM CDT Respiratory Rate 17 07/26/2024 3:13 PM CONVENIENCE STORE MANAGER Oxygen Saturation 96% 02/01/2025 10:01 AM CDT [...] history exists Medical Devices Implanted Type Area Executive Cyber Leader Device Identifier Shelf Expiration Date Model / [...] ORDERABLES Hyun l Result Performing Organization Address [facility] de Phone Number [facility] [address] Department [email or web address] [address] * (ABNORMAL) Hemoglobin A1c (03/21/2024 5:11 AM CDT) Hgb A1C 6.6(H) 4.0 - 5.6 % Estimated Average Glucose 143 mg/dL [facility] Comment: The ADA recommends reporting an estimated Average Glucose (eAG) with all Hemoglobin A1c results using the equation derived from a study of 507 normal and diabetic adults. Minority populations were underrepresented and children were not included. (Diabetes Care 31:3661-8277, 2008). The eAG is not equivalent to a fasting glucose. Blood 03/21/2024 5:11 AM CDT 03/21/2024 5:51 AM CDT Vance Gomez MD LAB BLOOD ORDERABLES Final Re sult Performing Organization Address [facility] de Phone Number [facility] [address] [place] [address] * Lipid panel (03/21/2024 5:11 AM CDT) [...] revised on 2018. Triglycerides 85 <=149 mg/dL [facility] Comment: Interpretive Data Ages < or = [...] revised on 2018. HDL 70 >=40 mg/dL [facility] Comment: Interpretive Data Ages < or = [...] on 2018. LDL, calculated 92 <=129 mg/dL [facility] Comment: Interpretive Data Ages < or = [...] revised on 2018. Non-HDL Cholesterol 109 mg/dL [facility] Comment: Interpretive Data Ages < or = [...] last revised on 2018. Chol/HDL ratio 3 [facility] Blood 03/21/2024 5:11 AM CDT 03/21/2024 5:50 AM CDT us Vance Gomez MD LAB BLOOD ORDERABLES Final Re sult [facility] [address] Department [place] [address] from Last 3 Months or Most Recently Relevant to Health Maintenance Insurance [facility] MEDICARE ADVANTAGE [facility] MEDICARE GOLD [id number] [place] [address] MEDICARE ADVANTAGE [facility] MEDICARE ADVANTAGE Advance Directives For more information, please contact: [phone] Documents on File Type Date Recorded Patient Equipment Lead Expl anation ADVANCE DIRECTIVE 02/11/2023 4:21 PM POWER OF PREMIUM AUDITOR-MEDICAL * Full Code (Latest Code Status on [...] 8:38 AM 07/26/2022 2:17 PM Care Teams Marine Fuel Dock Attendant Relationship Specialty Start Date End Date Olvin Muniz MD PCP - General 12/06/16 Yazmin Page RN Registered Nurse Gastroenterology 01/19/19 Frederick Dean MD Consulting Physician Transplant Hepatology 05/18/20 Mark Au MD [address] [facility] [address] [place] [address] Consulting Physician Gastroenterology 06/12/20 Nancy Honeycutt MD [address] [place] [address] Obstetrics and Gynecology 03/13/23
--- OUTSIDE RECORDS SUMMARY | 2025-08-29 15:55 | XMS_ITS | Encounter Summary ---
Author Organization [facility] Address [address] [place] [address] [place] [address] Care Team Providers Care Surveillance Sensor Operator Name Role Phone Olvin Muniz MD Primary Care Provider Encounter Details Date Type Department Care Team (Late st Contact Info) Description 07/18/2023 Lab Requisition [facility] - Derm[facility] Lab [address] [facility] [place] [id number] Dario Strauss MD [address] [facility] [place] [address] Social History Tobacco Use Types Packs/Day Years Used Date Smoking Tobacco: Never Smokeless Tobacco: Never Alcohol Use Standard Drinks/Week Comments Not Currently 0 (1 standard drink = 0.6 oz pur e alcohol) Comments No Sex and Gender Information Value Date Recorded Sex Assigned at Not on file Legal Sex Female 5:31 PM MIXING MACHINE FEEDER Gender Identity Not on file Sexual Orientation Not on file documented as of this encounter Plan of Treatment Not on file documented as of this encounter Procedures Procedure Name Priority Date/Time Associated Diagnosis Comments DERMATOPATHOLOGY Routine 07/17/2023 12:0 0 AM MIXING MACHINE FEEDER documented in this encounter Results * DERMATOPATHOLOGY (07/17/2023 12:00 AM MIXING MACHINE FEEDER) Case Report Dermatopathology Report Case: [id number] Authorizing Provider: Dario Strauss MD Collected: 07/17/2023 12:00 AM Ordering Location: [facility] Received: 07/18/2023 08:50 AM Pathologist: Ariadna Ramirez MD Specimen: Skin, right cheek 1:46 PM [facility] DERMATOPATHOLOGY LABORATORY Final Diagnosis Specimen A. SKIN, right cheek: EPIDERMOID CYST WITH EVIDENCE OF RUPTURE (L72.0) PRESENT AT MARGIN 1:46 PM [facility] DERMATOPATHOLOGY LABORATORY at [address] [facility] Clinical History Cyst. Path# [id number]. Check Margins. 1:46 PM [facility] [...] characteristic determined by the Dermatopathology Laboratory at [facility], directed by Dr. Chantel Padgett. These tests need not be, and therefore are not, approved by the [place] Food and Drug Administration. The tests are used for clinical purposes. Billing Codes Specimen Charges Stain Charges [address]2611 1 1:46 PM [facility] DERMATOPATHOLOGY LABORATORY Embedded Images 1:46 PM [facility] DERMATOPATHOLOGY LABORATORY Pathology/Cytolog y TISSUE SPECIMEN FROM SKIN / Unknown 07/17/2023 07/18/2023 8:50 AM [facility] us Dario Strauss MD LAB - PATHOLOGY/CYTOLOGY ORDER HEIKE Final Result DERMATOPATHOLOGY LABORATORY [facility] - Department of Dermatology [facility] Specialized Medicine [address] [place] [address], [address] [phone] documented in this encounter Visit Diagnoses Not on filedocumented in this encounter Care Teams Surveillance Sensor Operator Relationship Specialty Start Date End Date Olvin Muniz MD [address] [place] [address] PCP - General Internal Medicine 05/06/19 documented as of this encounter
--- OUTSIDE RECORDS SUMMARY | 2025-08-29 15:55 | XMS_ITS | Continuity of Care Document ---
Author Organization [place] - [facility], [facility] Internal Med [facility] Address [address] [facility] [place] [address] Assessment No assessment recorded. Plan of Treatment Reminders Order Date Submit Date Provider Last Modified By Organization Details Last Modified Time Details Appointments None recorded. Lab HbA1c (hemoglobin A1c), blood 2024 025 [email or web address] 5 [facility], [address], [place], [address], 19:40:35 CMP, serum or plasma 2024 025 5 [facility], [address], [place], [address], 19:40:35 TSH + free T4, serum 2024 025 [email or web address] 5 [facility], [address], [place], [address], 19:40:35 T3, free, serum or plasma 2024 025 [email or web address] 5 [facility], [address], [place], [address], 19:40:35 Referral None recorded. Procedures None recorded. Surgeries None recorded. Imaging DEXA, axial skeleton 2024 025 [email or web address] [facility] ([facility]), [address] [place] [address], [address], 11:07:32 Medication Orders carvedilol 3.125 mg tablet 2024 025 MURPHY [id number], [address], [place], [place], [id number], 09:51:19 Patient TargetsNo targets recorded. Patient Instructions Encounter Date Encounter Id Patient Instructions Last Modified By Organization Details Last Modified Time 07/13/2025 [id number] Discussed medication compliance and routine follow up. Discussed healthy diet and routine exercise. Reviewed vaccine records and made recommendations as needed. Encouraged annual eye and dental exams, as well as twice yearly dental cleanings. Will check screening labs as listed below. [email or web address] Not available 07/13/2025 09:49:26 Reason for Referral None Reported. Results Created Date Observation Date Name Description Value Unit Range Abnormal Flag Note LastModifiedBy Organization Detail LastModifiedTime 07/14/2007/12/2025 XR, lumba r spine No observ ation record ed. Not Available 2024 10:02:42 Result Notes None recorded. 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 209260433 Active Not Available [facility] 3 04:51:25 Abdomina l pain 15595143 Completed Olvin Muniz MD [address], [address], [place], [address] , [place] [facility] [employer] 3 15:39:38 Multiple sclerosi s 18949387 Active Not Available [facility] 3 04:51:26 Genital herpes simplex 06097600 Active Not Available [facility] 3 04:51:26 Upper respirat ory infectio n 97709740 Completed Not Available [facility] 3 04:51:27 Hyperlip idemia 54780410 Active Kristina Phillip MA null, [facility] 5 10:33:15 Pulmonar y embolism 83020776 Active Kristina Phillip MA null, [facility] 5 16:24:22 Essentia l hyperten anna 53995930 Active Not Available [facility] 3 04:51:28 Muscle pain 62108241 Completed Not Available [facility] 3 04:51:28 Liver enzymes level above referenc e range 666303906 Completed Not Available [facility] 3 04:51:28 Palpitat ions 34198655 Completed Not Available [facility] 3 04:51:[address] Maya, pain manageme nt Not Available [facility] 3 04:51:29 Liver function tests outside referenc e range 162305163 Completed 201803/29/2022 Not Available [facility] 3 04:51:25 Osteoart hritis 493711594 Active 2018 Not Available [facility] 3 04:51:27 Hypokale cal 73311349 Completed 201808/28/2020 Not Available [facility] 3 04:51:27 Prediabe shelley 903024922 Completed 201808/28/2020 Not Available [facility] 3 04:51:29 Diabetes mellitus 57269581 Active 2019 Not Available [facility] 3 04:51:29 Chronic back pain 291210036 Active 2019 Not Available [facility] 3 04:51:25 Mass of pancreas 398226419 Active 2019 Not Available [facility] 3 04:51:27 Tinea pedis 5873971 Completed 202003/29/2022 Not Available [facility] 3 04:51:28 Hypokale cal 55231265 Active 2020 Not Available [facility] 3 04:51:27 Malignan t neoplasm of pancreas 374604854 Active 2020 Not Available [facility] 3 04:51:26 Adult health examinat ion Active 2021 Not Available [facility] 3 04:51:26 Eruption 729809030 Active 2021 Not Available [facility] 3 04:51:26 Pancreat ic insuffic iency 82510929 Active 2021 Not Available [facility] 3 04:51:26 Acute upper respirat ory infectio n 58080842 Completed 202103/29/2022 Not Available [facility] 3 04:51:27 Pruritic rash 58918768 Completed 202103/29/2022 Not Available [facility] 3 04:51:28 Kidney disease 28662329 Active 2021 Not Available [facility] 3 04:51:29 Pain in left foot 68755523884 9107 Active 2021 Not Available [facility] 3 04:51:26 Depressi ve disorder 71671658 Active 2022 Not Available [facility] 3 04:51:26 Hypothyr oidism 52534763 Active 2022 Not Available [facility] 3 04:51:27 Abdomina l pain 26289742 Active 2022 Olvin Muniz MD [address], [address], [place], [address] , [facility] 3 15:39:38 Divertic ulitis of colon 505657465 Active 2022 Olvin Muniz MD [address], [address], [place], [address] , [facility] 3 15:46:19 Acute urinary tract infectio n 276539803 Active 2022 GARRY Grimaldo null, [facility] 3 15:07:14 Low back pain 758398692 Active 2022 Alice guerin, RMA null, [place] [facility] [place] [facility] 3 15:34:59 Neuropat hy 969916270 Active 2022 Ronna Nicholas CMA null, [place] [facility] [place] [facility] 3 10:26:25 Skin lesion 54157950 Active 2022 Olvin Muniz MD [address], [address], [place], [address] , [place] [facility] [place] [facility] 3 11:25:53 Postmeno pausal bleeding 85191923 Active 2022 Ronna Nicholas CMA null, [place] [facility] [place] [facility] 3 11:31:46 Chest pain 01896957 Active 2022 Olvin Muniz MD [address], [address], [place], [address] , [facility] [place] [facility] 3 11:01:56 Pain in left arm 293032232 Active 2023 Jewels Pereyra NP [address], [address], [place], [address] , [facility] [place] [facility] 4 15:35:58 Confusio [facility] 939985122 Active 2023 Olvin Muniz MD [address], [address], [place], [address] , [facility] [place] [facility] 4 12:44:07 Injury of knee 103511576 Active 2023 Olvin Muniz MD [address], [address], [place], [address] , [facility] [place] [facility] 4 12:55:47 Renal function tests outside referenc e range 685932787 Active 2024 Kristina Phillip [place] null, [place] [facility] [place] [facility] 5 15:59:04 Mammogra phy abnormal 852653738 Active 2024 Kristina Phillip [place] null, [place] [facility] 5 15:16:17 Dysuria 17674635 Active 2024 Kristina Phillip MA null, [facility] [employer] [facility] 5 17:03:33 Urinary symptoms 697584912 Active 2024 MELISA Robles [address], [place], [address] , [facility] [employer] [facility] 5 10:52:31 Notes:01-16-2018--last eye ex am summer 2016 Problem Notes None recorded. Procedures Surgical History Date Name Laterality Status Provider Name and Address Organization Details Recorded Time 05/18/20 25 Medicare Wellness CPT Code, subsequent active Sweta Walter [facility] [employer] [facility] 05/16/2025 09:37:58 05/18/20 24 Medicare Wellness CPT Code, subsequent completed Deliica De Guzman RN [facility] 05/18/2024 15:10:22 06/12/20 20 Most Recent Bone Density completed Not Available [facility] 11/06/2022 04:42:06 01/11/20 15 Date of Last Colonoscopy completed Not Available [facility] 11/06/2022 04:42:06 other completed Not Available [facility] 09/2022 04:42:10 Imaging Results None recorded. Procedure Notes None recorded. Medical Equipment None Reported. Allergies Allergen ID Allergen Name Allergen Category Reaction Reaction Severity Criticality Documentation Date Start Date Code Code System Note Provider Name and Address Organization Details Recorded Time 47346 Penicilli n Not available Not available Not available Not available 07/26/20252015 06856 RxNorm Not Available [employer] 5 17:08:02 44544 Fish (substanc e) food,medi cation anaphylax is Not available high 07/26/20252018 05327 1005 SNOMED Not Available [employer] - prod 17:08:29 55125 iodine medicatio n Not available Not available Not available 07/26/20252016 5933 RxNorm Welts unrec ogniz ed react ion (text : Unkno wn, code: 35002 [id number]) (from exter nal sourc e) Not Available [facility] External [employer] - prod 5 17:08:29 7788 shellfish derived food,medi cation anaphylax is Not available Not available 11/06/2022 Not Available [facility] 3 05:03:01 7789 Product containin g penicilli n (product) medicatio n hives Not available Not available 11/06/2022 16668 8001 SNOMED Not Available [facility] 3 05:03:02 7790 Iodinated contrast media (substanc e) medicatio n anaphylax is moderate Not available 11/06/2022 41568 2004 SNOMED Not Available [facility] 3 05:03:02 7791 codeine medicatio n hives moderate Not available 11/06/2022 2670 RxNorm Not Available [facility] 3 05:03:02 Medications Name Sig Start Date Stop Date Status Note LastModified by Organization Details LastModified Time tx-valacycl ovir 500mg tablets TAKE 1 TABLET BY MOUTH EVERY DAY 08/17 completed Not Available Not Available Not Available celecoxib 200 mg capsule 07/16 completed Not Available Not Available Not Available cyclobenzap rine 10 mg tablet TAKE 1 TABLET BY MOUTH TWICE DAILY NEEDED FOR MUSCLE SPASM 12/16 completed Not Available Not Available Not Available atorvastati n 40 mg tablet TAKE 1 TABLET BY MOUTH EVERY DAY active Not Available Not Available No t Available acetaminoph en 325 mg tablet TAKE 1 TABLET BY MOUTH DAILY 05/18 completed Not Available Not Available Not Available prednisone 10 mg tablet TAKE 3 TABLETS BY MOUTH ONCE DAILY FOR 3 DAYS AND 2 ONCE DAILY FOR 3 DAYS AND 1 ONCE DAILY FOR 3 DAYS 02/04 completed Not Available Not Available Not Available gabapentin 600 mg tablet bid 07/16 completed Not Available Not Available Not Available doxycycline hyclate 100 mg capsule TAKE 1 CAPSULE BY MOUTH TWICE DAILY FOR 7 DAYS 06/06 completed Not Available Not Available Not Available clindamycin HCl 300 mg capsule TAKE 2 CAPSULES BY MOUTH 1 HOUR BEFORE DENTAL APPOINTME NT 05/18 completed Not Available Not Available Not Available OneTouch Ultra Control solution 06/06 completed Not Available Not Available Not Available oxybutynin chloride ER 10 mg tablet,exte nded release 24 hr TAKE 1 TABLET BY MOUTH EVERY DAY active Not Available Not Available No t Available azithromyci n 250 mg tablet Take 2 TABLET EVERY DAY by oral route for 1 day. then 1 tab a day for 4 days 09/29 completed Not Available Not Available Not Available aspirin 325 mg tablet Take 1 tablet every day by oral route for 100 days. 2024 active FEI ok to rf Not Available Not Available Not Available ibuprofen 800 mg tablet TAKE 1 TABLET BY MOUTH TWICE DAILY WITH FOOD 06/06 completed Not Available Not Available Not Available fluconazole 150 mg tablet TAKE 1 TABLET BY MOUTH EVERY 72 HOURS 06/06 completed Not Available Not Available Not Available atenolol 100 mg tablet TAKE 1 TABLET BY MOUTH ONCE DAILY 2022 active Not Available Not Available Not Avai lable hydrocodone 5 mg-acetamin ophen 325 mg tablet TAKE 1 TABLET BY MOUTH EVERY 4 TO 6 HOURS NEEDED FOR PAIN 06/06 completed Not Available Not Available Not Available Nystop 100,000 unit/gram topical powder APPLY TOPICALLY TO THE AFFECTED AREA TWICE DAILY 09/20 completed Not Available Not Available Not Available ondansetron HCl 4 mg tablet Take 1 tablet twice a day by oral route. 09/29 completed Not Available Not Available Not Available prednisone 20 mg tablet TAKE 2 TABLETS BY MOUTH ONCE DAILY FOR 5 DAYS 05/18 completed Not Available Not Available Not Available sertraline 100 mg tablet active Not Available Not Available Not Available clindamycin HCl 150 mg capsule TK FOUR CS PO 1 HOUR B DAPP 02/04 completed Not Available Not Available Not Available diltiazem ER 360 mg capsule,24 hr,extended release TAKE 1 CAPSULE BY MOUTH EVERY DAY*PRANEETH Arriaga MAKE AN APPT* 01/09 completed Not Available Not Available Not Available diltiazem CD 360 mg capsule,ext ended release 24 hr TK ONE C PO QD active Not Available Not Available No t Available potassium chloride ER 10 mEq tablet,exte nded release TAKE 1 TABLET BY MOUTH EVERY DAY active Not Available Not Available No t Available metronidazo le 500 mg tablet TAKE 1 TABLET BY MOUTH EVERY 8 HOURS FOR 7 DAYS 06/06 completed Not Available Not Available Not Available ciprofloxac in 250 mg tablet TAKE 1 TABLET BY MOUTH EVERY 12 HOURS DIRECTED FOR 5 DAYS 05/30 completed Not Available Not Available Not Available valacyclovi r 500 mg tablet TAKE 1 TABLET BY MOUTH EVERY DAY 2024 active Not Available Not Available Not Avai lable ciprofloxac in 500 mg tablet TAKE 1 TABLET BY MOUTH TWICE DAILY FOR 7 DAYS 12/13 completed Not Available Not Available Not Available hydrocodone 10 mg-acetamin ophen 325 mg tablet TK 1 T PO Q 6 H PRN 10/29 completed Not Available Not Available Not Available peg-electro lyte solution 420 gram oral solution 06/06 completed Not Available Not Available Not Available omeprazole 40 mg capsule,del ayed release TAKE 1 CAPSULE BY MOUTH ONCE DAILY active Not Available Not Available No t Available lovastatin 10 mg tablet QD active Not Available Not Available Not Available ketorolac 30 mg/mL (1 mL) injection solution once today 05/18 completed Not Available Not Available Not Available glimepiride 2 mg tablet TAKE 1 TABLET BY MOUTH TWICE DAILY active Not Available Not Available No t Available carvedilol 3.125 mg tablet Take 1 tablet twice a day by oral route for 100 days. 2024 active FEI ok to rf Not Available Not Available Not Available baclofen 20 mg tablet TK 1 T PO TID PRN 01/09 completed Not Available Not Available Not Available oxycodone-a cetaminophe n 5 mg-325 mg tablet TAKE 1 TABLET BY MOUTH TWICE DAILY - THREE TIMES DAILY. active Not Available Not Available No t Available terbinafine HCl 250 mg tablet 10/29 completed Not Available Not Available Not Available alprazolam 0.5 mg tablet 08/17 completed Not Available Not Available Not Available hydrocodone 10 mg-acetamin ophen 500 mg tablet Take 1 tablet every 4 hours by oral route. active Not Available Not Available No t Available potassium chloride ER 20 mEq tablet,exte nded release(par t/cryst) TAKE 1 TABLET BY MOUTH ONCE DAILY FOR 14 DAYS active Not Available Not Available No t Available prednisolon e acetate 1 % eye drops,suspe nsion active Not Available Not Available Not Available lorazepam 0.5 mg tablet TAKE 1 TABLET BY MOUTH THREE TIMES DAILY 06/06 completed Not Available Not Available Not Available methocarbam ol 750 mg tablet TAKE 1 TABLET BY MOUTH THREE TIMES DAILY NEEDED FOR MUSCLE SPASM 12/16 completed Not Available Not Available Not Available aspirin 325 mg tablet,arun yed release TAKE 1 TABLET BY MOUTH EVERY DAY active Not Available Not Available No t Available oxycodone-a cetaminophe n 10 mg-325 mg tablet TAKE 1 TABLET BY MOUTH EVERY 6 HOURS NEEDED FOR PAIN. MUST LAST 30 DAYS 11/08 completed Not Available Not Available Not Available dicyclomine 20 mg tablet 09/29 completed Not Available Not Available Not Available OneTouch Ultra Test strips USE 1 STRIP TO CHECK GLUCOSE ONCE DAILY active Not Available Not Available No t Available baclofen 10 mg tablet TAKE 1 TABLET BY MOUTH 2 TO 3 TIMES DAILY NEEDED active Not Available Not Available No t Available simvastatin 5 mg tablet TAKE 1 TABLET BY MOUTH IN THE EVENING active Not Available Not Available No t Available cephalexin 500 mg capsule TAKE 1 CAPSULE BY MOUTH EVERY 8 HOURS 07/13 completed Not Available Not Available Not Available pantoprazol e 40 mg tablet,arun yed release TAKE 1 TABLET BY MOUTH ONCE DAILY 04/25 completed Not Available Not Available Not Available nortriptyli ne 10 mg capsule TAKE 1 CAPSULE BY MOUTH EVERY NIGHT. INCREASE TO 2 CAPSULES AFTER 1 WEEK AND TO 3 CAPSULES AFTER 2 WEEKS IF NOT BETTER active Not Available Not Available No t Available oseltamivir 75 mg capsule Take 1 capsule twice a day by oral route for 5 days. 11/12 completed Not Available Not Available Not Available diclofenac 0.1 % eye drops active Not Available Not Available Not Available ropinirole 0.5 mg tablet TK 1 T PO HS 03/26 completed Not Available Not Available Not Available prednisone 50 mg tablet 08/17 completed Not Available Not Available Not Available lidocaine 5 % topical patch APPLY 1 PATCH TOPICALLY EACH DAY LEAVE ON MOST PAINFUL AREA FOR UP TO 12 HOURS DAILY 05/18 completed Not Available Not Available Not Available Glucerna Shake oral liquid Take 237 mL 3 times a day by oral route. 08/17 completed Not Available Not Available Not Available oxybutynin chloride ER 5 mg tablet,exte nded release 24 hr Take 1 tablet every day by oral route. active Not Available Not Available No t Available gabapentin 300 mg capsule TAKE 1 TO 2 CAPSULES BY MOUTH EVERY 8 HOURS NEEDED 06/06 completed Not Available Not Available Not Available diltiazem CD 120 mg capsule,ext ended release 24 hr 01/09 completed Not Available Not Available Not Available hydroxyzine HCl 25 mg tablet Take 1 tablet 3 times a day by oral route. active Not Available Not Available No t Available acetaminoph en 300 mg-codeine 60 mg tablet TAKE 1 TABLET BY MOUTH TWICE DAILY NEEDED FOR RADICULOP ATHY, LUMBAR REGION 05/18 completed Not Available Not Available Not Available hydrochloro thiazide 25 mg tablet TAKE 1 TABLET BY MOUTH EVERY DAY 2024 active Not Available Not Available Not Avai lable lorazepam 1 mg tablet TAKE ONE-HALF TABLET BY MOUTH THREE TIMES DAILY active Not Available Not Available No t Available polyethylen e glycol 3350 17 gram/dose oral powder 03/26 completed Not Available Not Available Not Available lovastatin 20 mg tablet TK 1 T PO QD active Not Available Not Available No t Available estradiol 0.01% (0.1 mg/gram) vaginal cream INSERT 1 GRAM VAGINALLY TWICE A WEEK 04/14 completed Not Available Not Available Not Available methylpredn isolone 4 mg tablets in a dose pack TAKE BY MOUTH DIRECTED ON INSIDE OF PACKAGE 05/18 completed Not Available Not Available Not Available ketoconazol e 2 % topical cream APPLY TOPICALLY TO THE AFFECTED AREA OF LEFT FOOT DAILY 12/16 completed Not Available Not Available Not Available ondansetron 4 mg disintegrat ing tablet active Not Available Not Available N ot Available sertraline 50 mg tablet 05/18 completed Not Available Not Available Not Available dicyclomine 10 mg capsule TAKE ONE CAPSULE BY MOUTH FOUR TIMES DAILY NEEDED FOR ABDOMINAL PAIN 06/06 completed Not Available Not Available Not Available atenolol 50 mg tablet Take 1 tablet every day by oral route. active Not Available Not Available No t Available naproxen 500 mg tablet 07/20 completed Not Available Not Available Not Available oxycodone 5 mg tablet 07/16 completed Not Available Not Available Not Available Fish Oil 500 mg capsule 2qd 10/29 completed Not Available Not Available Not Available olmesartan 20 mg tablet TAKE 1 TABLET BY MOUTH EVERY DAY 05/21 completed Not Available Not Available Not Available olmesartan 40 mg tablet TAKE 1 TABLET BY MOUTH EVERY DAY active Not Available Not Available No t Available azithromyci n 500 mg tablet TAKE 1 TABLET BY MOUTH 1 HOURS PRIOR TO DENTAL APPOINTME NTS 08/17 completed Not Available Not Available Not Available ezetimibe 10 mg tablet TAKE 1 TABLET BY MOUTH ONCE DAILY 05/18 completed Not Available Not Available Not Available cyclobenzap rine 5 mg tablet Take 1 tablet 3 times a day by oral route as needed. 12/16 completed Not Available Not Available Not Available Vigamox 0.5 % eye drops active Not Available Not Available Not Available olmesartan 40 mg-hydrochl orothiazide 25 mg tablet TAKE 1 TABLET BY MOUTH EVERY DAY 07/16 completed Not Available Not Available Not Available Avonex 30 mcg/0.5 mL intramuscul ar syringe kit Inject 0.5 kits every week by intramusc ular route for 7 days. active Not Available Not Available No t Available cholestyram ine (with sugar) 4 gram powder for susp in a packet tid 07/16 completed Not Available Not Available Not Available nitrofurant oin monohydrate /macrocryst als 100 mg capsule TAKE 1 CAPSULE BY MOUTH EVERY 12 HOURS FOR 5 DAYS 02/15 completed Not Available Not Available Not Available duloxetine 30 mg capsule,del ayed release active Not Available Not Available Not Available duloxetine 60 mg capsule,del ayed release TAKE 1 CAPSULE BY MOUTH TWICE DAILY 06/06 completed Not Available Not Available Not Available chlorhexidi ne gluconate 0.12 % mouthwash RINSE WITH 1 CAPFUL FOR 1 MINUTE THEN SPIT TWICE A DAY AFTER BRUSHING AND FLOSSING 08/17 completed Not Available Not Available Not Available vitamin E 400 iu 10/29 completed Not Available Not Available Not Available Vitamin D3 2000iu 12/16 completed Not Available Not Available Not Available Senexon-S 8.6 mg-50 mg tablet 03/26 completed Not Available Not Available Not Available Xarelto 20 mg tablet Take 1 tablet(s) every day by oral route. active Not Available Not Available No t Available Banophen 50 mg capsule TAKE 1 CAPSULE BY MOUTH ONCE 1 DOSE [address] ON 07/15 completed Not Available Not Available Not Available Avonex 30 mcg/0.5 mL intramuscul ar pen kit active Not Available Not Available N ot Available Aubagio 14 mg tablet qd 11/20 completed Not Available Not Available Not Available Eliquis 2.5 mg tablet 07/16 completed Not Available Not Available Not Available Creon 36,000 unit-114,00 0 unit-180,00 0 unit capsule,del ayed release TAKE 2 CAPSULES BY MOUTH THREE TIMES DAILY WITH MEALS 05/18 completed Not Available Not Available Not Available potassium chloride ER 20 mEq tablet,exte nded release Take 1 tablet every day by oral route. 05/18 completed Not Available Not Available Not Available Movantik 25 mg tablet TAKE 1 TABLET BY MOUTH EVERY DAY 12/16 completed Not Available Not Available Not Available Zenpep 25,000 unit-79,000 unit-105,00 0 unit capsule,del ayed release TAKE 2 CAPSULES BY MOUTH WITH MEALS AND TAKE 1 CAPSULE WITH SNACK. MAXIMUM DAILY DOSE IS 9 CAPSULES active Not Available Not Available No t Available OneTouch Ultra2 Meter 06/06 completed Not Available Not Available Not Available OneTouch Delica Plus Lancet 33 gauge active Not Available Not Available Not Available Fluad Quad 5338-9902(6 5yr up)(PF) 60 mcg (15 mcg x 4)/0.5mL IM syringe active Not Available Not Available Not Available Vitals Date Recorded Body height Body mass index (BMI) Body weight Oxygen saturation Heart rate Body temperature Systolic And Diastolic Provider Name and Address Organization Details Last Updated DateTime 5 154.94 cm 30 kg/m2 39058.1 9 g 97 % 88 /min 96.7 [degF] 138/86 mm[Hg] Vanessa Ahmadi [facility] 09:36:58 Social History Question Answer Notes LastModified by Organization Details LastModified Time Tobacco Smoking Status Never Smoker Not Available [employer] 11/06/2022 04:31:57 Do You Have An Advance Directive? No MIGRATION.300 [id number] Information not available 11/06/2022 Do You Wear A Helmet When Biking? No MIGRATION.[id number] Information not available 11/06/2022 Are You Blind Or Do You Have Difficulty Seeing? No MIGRATION.0301 [id number] Information not available 11/06/2022 What Is Your Level Of Caffeine Consumption? Moderate MIGRATION.030 [id number] Information not available 11/06/2022 In The 14 Days Before Symptom Onset, Have You Had Close Contact With A Laboratory-conf marleny VAZ-19 While That Case Was Ill? No Not Applicable [email or web address] Information not available 05/18/2024 Are You Deaf Or Do You Have Serious Difficulty Hearing? No MIGRATION.030 293011 Information not available 11/06/2022 What Type Of Diet Are You Following? CARBOHYDRATE MIGRATION.030 036921 Information not available 11/06/2022 Which Illicit Or Recreational Drugs Have You Used? Marijuana For MS MIGRATION.030 [id number] Information not available 11/06/2022 What Is The Highest Grade Or Level Of School You Have Completed Or The Highest Degree You Have Received? [id number] MIGRATION.[id number] Information not available 11/06/2022 How Many Days Of Moderate To Strenuous Exercise, Like A Brisk Walk, Did You Do In The Last 7 Days? 3 [email or web address] Information not available 05/18/2024 On Those Days That You Engage In Moderate To Strenuous Exercise, How Many Minutes, On Average, Do You Exercise? 15 [email or web address] Information not available 05/18/2024 Have There Been Any Changes To Your Family Or Social Situation? No MIGRATION.030 803071 Information not available 11/06/2022 What Is The Fluoride Status Of Your Home? Fluoridated MIGRATION.030 488375 Information not available 11/06/2022 Are There Any Guns Present In Your Home? No MIGRATION.030 946817 Information not available 11/06/2022 Do You Use Insect Repellent Routinely? No MIGRATION.030 146228 Information not available 11/06/2022 Presence Of Domestic Violence No [email or web address] Information not available 05/18/2024 Are You Able To Care For Yourself? Yes [email or web address] Information not available 05/18/2024 What Was The Date Of Your Most Recent Tobacco Screening? 05/18/2024 [email or web address] Information not available 05/18/2024 Do You Have Any Pets? No MIGRATION.0301 [id number] Information not available 11/06/2022 What Is Your Relationship Status? MIGRATION.0301 [id number] Information not available 11/06/2022 Do You Use Your Seat Belt Or Car Seat Routinely? Yes MIGRATION.0301 [id number] Information not available 11/06/2022 Do You Have Smoke And Carbon Monoxide Detectors In Your Home? Yes MIGRATION.0301 099674 Information not available 11/06/2022 Are You Passively Exposed To Smoke? Yes MIGRATION.0301 [id number] Information not available 11/06/2022 Are There Any Smokers In Your House? Yes Smokes In The Basement MIGRATION.0301 [id number] Information not available 11/06/2022 What Types Of Sporting Activities Do You Participate In? None [email or web address] Information not available 05/18/2024 Do You Use Sunscreen Routinely? No MIGRATION.0301 319484 Information not available 11/06/2022 Has Tobacco Cessation Counseling Been Provided? No MIGRATION.0301 085874 Information not available 11/06/2022 Have You Recently Traveled Abroad? No MIGRATION.0301 023406 Information not available 11/06/2022 Have You Used IV Drugs? No MIGRATION.0301 454719 Information not available 11/06/2022 Do You Have Difficulty Walking Or Climbing Stairs? No MIGRATION.0301 613600 Information not available 11/06/2022 Do You Have Any Dietary Restrictions? No MIGRATION.0301 013959 Information not available 11/06/2022 Sex: Female Functional Status Question Answer Note LastModified by Organizat ion Details LastModified Time Do you use any illicit or recreational drugs? Yes MIGRATION.[id number] 026 Information not available 11/06/2022 Do you or have you ever used any other forms of tobacco or nicotine? No MIGRATION.9806798 026 Information not available 11/06/2022 What is your level of alcohol consumption? None MIGRATION.7367041 026 Information not available 11/06/2022 Are you currently employed? No [email or web address] Information not available 05/18/2024 Do you have transportation difficulties? No MIGRATION.2826935 026 Information not available 11/06/2022 Are you able to walk independently without assistance or assistive devices? YESWOREST MIGRATION.0496505 026 Information not available 11/06/2022 Do you have difficulty doing errands alone? No MIGRATION.1914814 026 Information not available 11/06/2022 Are you able to care for yourself independently? Yes MIGRATION.6024466 026 Information not available 11/06/2022 What is your occupation? RETIRED MIGRATION.8041799 026 Information not available 11/06/2022 Do you have difficulty dressing, bathing, grooming, or toileting? No MIGRATION.4992282 026 Information not available 11/06/2022 What is your exercise level? Occasional MIGRATION.0956290 026 Information not available 11/06/2022 Mental Status Question Answer Note LastModified by Organizat ion Details LastModified Time Do you feel stressed (tense, restless, nervous, or anxious, or unable to sleep at night)? [id number] MIGRATION.[id number] 26 Information not available 11/06/2022 Do you have difficulty concentrating, remembering or making decisions? Yes MIGRATION.12130297 26 Information not available 11/06/2022 Family History Relationship Description Onset Age of this Age Resolved Age Notes LastModified by Organization Details LastModified Time Father Heart disease Triple Bypass MIGRATION.347 [id number] Not available 11/06/2022 04:42:15 Father Diabetes mellitus MIGRATION.513 [id number] Not available 11/06/2022 04:42:15 Father Essential hypertension MIGRATION.592 [id number] Not available 11/06/2022 04:42:15 Medical History No medical history recorded. Gynecological History Statement/Question Response Date of Last Pap Date of Last Mammogram 06/12/2020 Date of Last Colonoscopy 01/10/2015 Most Recent Bone Density 06/12/2020 Obstetrics History GPAL:G 0 P 0 0 0 0 Immunizations Vaccine Type Date Status Note Provider Nam e and Address Organization Details Recorded Time COVID-19, mRNA, LNP-S, PF, 100 mcg/0.5mL dose or 50 mcg/0.25mL dose 1 completed Not Available [facility] 07/13/2025 09:31:33 COVID-19, mRNA, LNP-S, PF, 100 mcg/0.5mL dose or 50 mcg/0.25mL dose 2 completed Not Available [facility] 07/13/2025 09:31:33 COVID-19, mRNA, LNP-S, bivalent, PF, 50 mcg/0.5 mL or 25mcg/0.25 mL dose 2 completed Not Available [facility] 07/13/2025 09:31:33 Influenza, high-dose, quadrivalent, PF 2 completed Not Available [facility] 07/13/2025 09:31:33 Tdap 3 completed Not Available [facility] 07/13/2025 09:31:33 Influenza, high-dose, quadrivalent, PF 3 completed Not Available [facility] 07/13/2025 09:31:33 RSV, recombinant, protein subunit RSVpreF, adjuvant reconstituted, 0.5 mL, PF 3 completed Not Available [facility] 07/13/2025 09:31:33 COVID-19, mRNA, LNP-S, PF, 50 mcg/0.5 mL 3 completed Not Available [facility] 07/13/2025 09:31:33 Influenza, high-dose, trivalent, PF 4 completed Not Available [facility] 07/13/2025 09:31:33 zoster recombinant 4 completed Not Available [facility] 07/13/2025 09:31:33 COVID-19, mRNA, LNP-S, PF, 50 mcg/0.5 mL 4 completed Not Available [facility] 07/13/2025 09:31:33 COVID-19, mRNA, LNP-S, PF, 10 mcg/0.2 mL 5 completed Not Available [facility] 07/13/2025 09:31:33 Influenza, high-dose, trivalent, PF 5 completed Not Available [facility] 07/13/2025 09:31:33 Influenza, split virus, quadrivalent, preservative 1 completed Not Available [facility] 11/06/2022 05:02:46 SARS-COV-2 (COVID-19) vaccine, UNSPECIFIED 1 completed Not Available [facility] 11/06/2022 05:02:47 SARS-COV-2 (COVID-19) vaccine, UNSPECIFIED 1 completed Not Available [facility] 11/06/2022 05:02:47 Influenza, split virus, quadrivalent, preservative 0 completed Not Available [facility] 11/06/2022 05:02:47 Influenza, high-dose, trivalent, PF 7 completed Not Available [facility] 11/06/2022 05:02:47 Influenza, split virus, trivalent, preservative 5 completed Not Available [facility] 11/06/2022 05:02:47 pneumococcal polysaccharide PPV23 3 completed Not Available [facility] 11/06/2022 05:02:47 Influenza, high-dose, trivalent, PF 8 completed Not Available [facility] 11/06/2022 05:02:47 Influenza, split virus, quadrivalent, preservative 6 completed Not Available [facility] 11/06/2022 05:02:47 Pneumococcal conjugate PCV 13 8 completed Not Available [facility] 11/06/2022 05:02:47 Influenza, split virus, quadrivalent, preservative 5 completed Not Available [facility] 11/06/2022 05:02:48 Influenza, high-dose, trivalent, PF 7 completed Not Available [facility] 11/06/2022 05:02:48 Past Encounters Encounter ID Performer Location Encounter Start Date Encounter Closed Date Diagnosis/Indication Diagnosis SNOMED-CT Code Diagnosis ICD10 Code Diagnosis IMO Codes Diagnosis Note [id number] Olvin Muniz MD [facility] [address] [facility] [place] [address] 07/13/2025 09:30:24 07/13/2025 10:02:33 Essential hypertension 76614628 I10 under control at this time Hyperlipidemia 56200820 E78.5 29781066 Hypothyroidism 90650887 E03.9 Diabetes mellitus 486043 09 E11.9 microalbum in checkedpod iatry-DM eye exam-? Kidney disease 95934377 N08 will check gfr Screening for osteoporosis 044921979 Z13.820 548717 Health Concerns Section Related Observation LastModified by Organization Detai ls LastModified Time None Recorded Concern Status LastModified by Organization Details LastModified Time None Recorded Payers Encounter Date Sequence Insurance Name Policy Number Policy Lovell Covered Member ID Lovell Member ID Guarantor Name 07/13/2025 1 [place] (MEDICARE REPLACEMENT/A DVANTAGE - PPO) [id number] Savanna Armenta [id number] Savanna Armenta Notes Date Note Type Note Provider Name and Address Organization Details Recorded Time 07/13/2025 text/html ROS as noted in the HPI Patient is a 75 year old female that presents to the office for routine wellness. She reports that she does not refills at this time other than her carvedilol. She reports she has no concerns today and is doing well. She denies chest pain, shortness of breath, abdominal pain, fatigue, fever, headaches, blurred vision, n/v/d, or fevers at this time. labs-will ordermammogram-U TDcolonoscopy-UT DWWE- NO awareDEXA- will order [place]D Luejj-YFJAutz-WM DShingles-UTDPne umo-UTDRSV- UTDsmoke/vape- no MELISA Robles [address] [facility] [facility] [facility] [address], [place], [address], [place] [facility] [employer] [employer] 07/13/2025 09:51:32 OBGyn Episode No OBEpisode recorded.
--- OUTSIDE RECORDS SUMMARY | 2025-08-29 15:55 | XMS_ITS | Data Portability ---
Author Organization [facility], Main Office Address [address] [place] [address] Assessment No assessment recorded. Plan of Treatment Reminders Order Date Submit Date Provider Last Modified By Organization Details Last Modified Time Details Appointments None recorded. Lab HbA1c (hemoglobin A1c), blood 2024 025 [email or web address] 5 [facility], [address], [place], [address], 19:40:35 CMP, serum or plasma 2024 025 [email or web address] 5 [facility], [address], [place], [address], 19:40:35 TSH + free T4, serum 2024 025 [email or web address] 5 [facility], [address], [place], [address], 19:40:35 T3, free, serum or plasma 2024 025 [email or web address] 5 [facility], [address], [place], [address], 19:40:35 urinalysis, dipstick 2024 025 5 [facility] [address], [facility] [place], [address], 12:40:06 culture, urine 2024 025 [employer] [facility], [address] [facility], [place], [address], 19:16:07 RBC morphology, blood [address] (Lab), [address] [place], [address], 5 11:34:29 vitamin D, 25-hydroxy, total, serum [address] (Lab), [address] [place], [address], 5 11:34:29 glycohemogl obin, total, blood [address] (Lab), [address] [place], [address], 5 11:34:28 CMP, serum or plasma [address] (Lab), [address] [place], [address], 5 11:34:28 microalbumi n, urine 2023 024 [facility] (Lab), [address] [place], [address], 5 13:52:31 lipid panel, serum [address] (Lab), [address] [place], [address], 5 11:34:29 RBC morphology, blood [email or web address]Lab), [address] [place], [address], 4 14:17:35 glycohemogl obin, total, blood [address] (Lab), [address] [place], [address], 4 14:17:35 CMP, serum or plasma [address] (Lab), [address] [place], [address], 4 14:17:35 microalbumi n, urine [address] (Lab), [address] [place], [address], 4 14:17:35 vitamin D, 25-hydroxy, total, serum [address] (Lab), [address] [place], [address], 4 14:17:36 lipid panel, serum [address] (Lab), [address] [place], [address], 4 14:17:36 Referral None recorded. Procedures None recorded. Surgeries None recorded. Imaging DEXA, axial skeleton 2024 025 [facility] ([facility]), [address] [place], [address], 5 11:07:32 Medication Orders carvedilol 3.125 mg tablet 2024 025 [id number], [address] [place], [place], [id number], 5 09:51:19 Cipro 250 mg tablet 2024 025 [email or web address] 52 [facility], [address] [place] [address], [address], 5 10:02:14 hydrochloro thiazide 25 mg tablet 2023 024 [facility], [address] [place] [address], [address], 4 12:41:35 olmesartan 40 mg tablet 2023 [facility], [address] [place] [address], [address], 12:41:34 Patient TargetsNo targets recorded. Patient Instructions Encounter Date Encounter Id Patient Instructions Last Modified By Organization Details Last Modified Time 05/18/2024 [id number] dementia rating scale-2* Not available 05/18/2024 17:19:51 depression screening* Not available 05/18/2024 17:19:52 alcohol misuse* Not available 05/18/2024 17:19:51 Timed Up and Go test (TUG)* Not available 05/18/2024 17:19:51 multi-dimensiona l health assessment questionnaire* Not available 05/18/2024 17:19:51 Personalized [facility] lt Plan and Screening Recommendations Advance Directives - Do you have one? Advance Directives - Do we have your advance directive on file in your health record? No, please bring in a copy at your earliest convenience Primary Prevention/Interven tion (prevents or decreases the chance of common diseases from occurring) Smoking Risk: Non Smoker Alcohol Misuse Screening: Negative Weight: Overweight try to lose 10% of your body weight Physical activity: Need more exercise/physical activity minimum of 10-20 minutes of activity that causes mild breathlessness/day Nutrition: Average Fall Risk (screened today): Intermediate Vaccines Pneumococcal: No further needed Influenza: Your next one in the fall of this year Chronic Disease Risks Stroke: Intermediate Risk Active diagnosis, Continue current treatment plan Heart Attack: Intermediate Risk Active diagnosis, Continue current treatment plan Clogging of the Arteries: Intermediate Risk Active diagnosis, Continue current treatment plan Diabetes: Intermediate Risk Active diagnosis, Continue current treatment plan Secondary Prevention/Interven tion (detects treatable diseases before they may cause symptoms, disability, or ) Breast Cancer Screening with mammogram: Ordereddone 10/2022 Cervical/Uterine/Ov nas Cancer Screening: No screening necessary Osteoporosis Screening: No screening necessary Date Screening Last Performed: 12/2023 Colon Cancer Screening: Colonoscopy Date Screening Last Performed: _08/2021_ Eye Disease Screening: No Eye exam necessary Dementia Risk: Low I have no recommendations Depression Screening: Negative I have no recommendations. [email or web address] Not available 05/18/2024 15:19:57 02/15/2025 [id number] Encouraged pushi ng fluids, avoid sugary drinks, wiping front to back, avoiding fragrant soaps and bubble baths, and voiding before/after intercourse. Oral ABX as directed. Discussed instructions for use. Patient advised to follow up at urgent care or seek treatment at the Emergency Department if fever/chills or flank pain. Patient verbalized understanding and agreement to treatment plan. [email or web address] Not available 02/15/2025 12:37:01 07/13/2025 [id number] Discussed medication compliance and routine follow up. Discussed healthy diet and routine exercise. Reviewed vaccine records and made recommendations as needed. Encouraged annual eye and dental exams, as well as twice yearly dental cleanings. Will check screening labs as listed below. [email or web address] Not available 07/13/2025 09:49:26 Reason for Referral None Reported. Results Created Date Observation Date Name Description Value Unit Range Abnormal Flag Note LastModifiedBy Organization Detail LastModifiedTime 02/16/2002/15/2025 urina lysis , dipst ick Leukocytes (reference range: negative deandre/ l) Small Not Available [facility] [address] [facility] [place], [address], 02/15/2025 10:52:34 02/16/20 25 02/15/2025 urina lysis , dipst ick Nitrite (reference rage: negative mg/dl) negati ve Not Available [facility] [address] [facility] [place], [address], 02/15/2025 10:52:34 02/16/20 25 02/15/2025 urina lysis , dipst ick Urobilinogen (reference range: 0.2-1 mg/dl) 0.2 Not Available [facility] [address] [place], [address], 02/15/2025 10:52:34 02/16/20 25 02/15/2025 urina lysis , dipst ick Protein (reference range: negative mg/dl) Negati ve Not Available [facility] [address] [place], [address], 02/15/2025 10:52:34 02/16/20 25 02/15/2025 urina lysis , dipst ick pH (reference range: 5-7) 6.0 Not Available [place] [address] [place], [address], 02/15/2025 10:52:34 02/16/20 25 02/15/2025 urina lysis , dipst ick Blood (reference range: negative Piter/ l) Small Not Available [place] [address] [place], [address], 02/15/2025 10:52:34 02/16/20 25 02/15/2025 urina lysis , dipst ick Specific [place] (reference range: 1.005-1.030) 1.020 Not Available [facility] [address] [place], [address], 02/15/2025 10:52:34 02/16/20 25 02/15/2025 urina lysis , dipst ick Ketone (reference range: negative mg/dl) Negati ve Not Available [facility] Internal [facility] [address] [place], [address], 02/15/2025 10:52:34 02/16/20 25 02/15/2025 urina lysis , dipst ick Bilirubin (reference range: negative mg/dl) Negati ve Not Available [facility] [address] [place], [address], 02/15/2025 10:52:34 02/16/20 25 02/15/2025 urina lysis , dipst ick Glucose (reference range: negative mg/dl) Negati ve Not Available [facility] [address] [place], [address], 02/15/2025 10:52:34 02/16/20 25 02/15/2025 urina lysis , dipst ick Appearance Slight ly Cloudy Not Available [facility] [address] [place], [address], 02/15/2025 10:52:34 02/16/20 25 02/15/2025 urina lysis , dipst ick Color Yellow Not Available [place] [address] [place], [address], 02/15/2025 10:52:34 06/15/20 24 06/14/2024 CT, brain , w/o contr ast No observ ation record ed. [email or web address] Not Available 2023 16:18:30 01/07/20 25 01/06/2025 MAMMO , scree logan, digit al, bilat eral No observ ation record ed. [email or web address] Not Available 2024 15:15:52 01/08/20 25 01/07/2025 MAMMO , scree logan, digit al, bilat eral No observ ation record ed. [email or web address] Not Available 2024 15:15:53 02/17/20 25 02/16/2025 US, breas t, unila teral No observ ation record ed. [email or web address] [facility] [address], [place], [address], 02/18/2025 12:40:01 07/14/20 25 07/12/2025 XR, lumba r spine No observ ation record ed. Not Available 2024 10:02:42 Result Notes None recorded. 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 311861650 Active Not Available [facility] 3 04:51:25 Abdomina l pain 03226048 Completed Olvin Muniz MD [address] [facility] [facility] [address], [place], [address] , [employer] 15:39:38 Multiple sclerosi s 37978712 Active Not Available [facility] 3 04:51:26 Genital herpes simplex 06579612 Active Not Available [facility] 3 04:51:26 Upper respirat ory infectio n 28674130 Completed Not Available [facility] 3 04:51:27 Hyperlip idemia 86213810 Active MADDIE Nguyen, [employer] 5 10:33:15 Pulmonar y embolism 55190321 Active MADDIE Nguyen, [facility] [employer] 5 16:24:22 [facility] l hyperten anna 19019713 Active Not Available [employer] 3 04:51:28 Muscle pain 00084450 Completed Not Available [facility] 3 04:51:28 Liver enzymes level above referenc e range 227524636 Completed Not Available [employer] 3 04:51:28 Palpitat ions 12331329 Completed Not Available [facility] 3 04:51:29 [address] pain 03662845 Active Dr Maya, pain manageme nt Not Available [facility] 3 04:51:29 Liver function tests outside referenc e range 991122967 Completed 201803/29/2022 Not Available [facility] 3 04:51:25 Osteoart hritis 716613887 Active 2018 Not Available [facility] 3 04:51:27 [place]okale cal 07487821 Completed 201808/28/2020 Not Available [facility] 3 04:51:27 Prediabe shelley 162484650 Completed 201808/28/2020 Not Available [facility] 3 04:51:29 Diabetes mellitus 33341294 Active 2019 Not Available [facility] 3 04:51:29 Chronic back pain 625421261 Active 2019 Not Available [facility] 3 04:51:25 Mass of pancreas 381926498 Active 2019 Not Available [facility] 3 04:51:27 Tinea pedis 6448115 Completed 202003/29/2022 Not Available [facility] 3 04:51:28 [place] 51497762 Active 2020 Not Available [employer] 3 04:51:27 Malignan t neoplasm of pancreas 504084218 Active 2020 Not Available [employer] 3 04:51:26 Adult health examinat ion Active 2021 Not Available [employer] 3 04:51:26 Eruption 251075352 Active 2021 Not Available [employer] 3 04:51:26 Pancreat ic insuffic iency 92255362 Active 2021 Not Available [employer] 3 04:51:26 Acute upper respirat ory infectio n 11756495 Completed 202103/29/2022 Not Available [facility] 3 04:51:27 Pruritic rash 68871196 Completed 202103/29/2022 Not Available [facility] 3 04:51:28 Kidney disease 79793414 Active 2021 Not Available [facility] 3 04:51:29 Pain in left foot 02576602021 9107 Active 2021 Not Available [facility] 3 04:51:26 Depressi ve disorder 93445473 Active 2022 Not Available [facility] 3 04:51:26 Hypothyr oidism 98656761 Active 2022 Not Available [facility] 3 04:51:27 Abdomina l pain 94572660 Active 2022 Olvin Muniz MD [address], [address], [place], [address] , [facility] 3 15:39:38 Divertic ulitis of colon 868987999 Active 2022 Olvin Muniz MD [address], [address], [place], [address] , [facility] 3 15:46:19 Acute urinary tract infectio n 382614911 Active 2022 Alice guerin RMA null, [facility] 3 15:07:14 Low back pain 056518614 Active 2022 Alice guerin RMA null, [place] [facility] 3 15:34:59 Neuropat hy 897023128 Active 2022 Ronna Nicholas CMA null, [place] [facility] 3 10:26:25 Skin lesion 80008064 Active 2022 Olvin Muniz MD [address], [address], [place], [address] , [facility] 3 11:25:53 Postmeno pausal bleeding 85825249 Active 2022 Ronna Nicholas CMA null, [facility] 3 11:31:46 Chest pain 36252671 Active 2022 Olvin Muniz MD [address], [address], [place], [address] , [facility] 3 11:01:56 Pain in left arm 161051630 Active 2023 Jewels Pereyra NP [address], [address], [place], [address] , [place] [facility] 4 15:35:58 Confusio formerly [facility] 060974602 Active 2023 Olvin Muniz MD [address], [place], [address] , [facility] 4 12:44:07 Injury of knee 911544644 Active 2023 Olvin Muniz MD [address], [address], [place], [address] , [facility] 4 12:55:47 Renal function tests outside referenc e range 339356409 Active 2024 Kristina Phillip MA null, [place] [facility] 5 15:59:04 Mammogra phy abnormal 024932721 Active 2024 Kristina Phillip MA null, [place] [facility] 5 15:16:17 Dysuria 11605525 Active 2024 Kristina Phillip MA null, [place] [facility] 5 17:03:33 Urinary symptoms 432162943 Active 2024 MELISA Robles [address], [place], [address] , [place] [facility] 5 10:52:31 Notes:01-16-2018--last eye ex am summer 2016 Problem Notes None recorded. Procedures Surgical History Date Name Laterality Status Provider Name and Address Organization Details Recorded Time 05/18/20 25 Medicare Wellness CPT Code, subsequent active Swetabrett Watson [place] [employer] [facility] 05/16/2025 09:37:58 05/18/20 24 Medicare Wellness CPT Code, subsequent completed Delicia De Guzman RN [facility] 05/18/2024 15:10:22 06/12/20 20 Most Recent Bone Density completed Not Available [facility] 11/06/2022 04:42:06 01/11/20 15 Date of Last Colonoscopy completed Not Available [facility] 11/06/2022 04:42:06 other completed Not Available [facility] 09/2022 04:42:10 Imaging Results None recorded. Procedure Notes None recorded. Medical Equipment None Reported. Allergies Allergen ID Allergen Name Allergen Category Reaction Reaction Severity Criticality Documentation Date Start Date Code Code System Note Provider Name and Address Organization Details Recorded Time 78963 Penicilli n Not available Not available Not available Not available 07/26/20252015 92604 RxNorm Not Available lisseth [employer] [facility] 5 17:08:02 57702 Fish (substanc e) food,medi cation anaphylax is Not available [facility] 07/26/20252018 99910 1005 SNOMED Not Available lisseth [employer] - prod 5 17:08:29 24366 iodine medicatio n Not available Not available Not available 07/26/20252016 5933 RxNorm Welts unrec ogniz ed react ion (text : Unkno wn, code: 74007 [id number]) (from exter nal sourc e) Not Available lisseth [employer] - prod 5 17:08:29 7788 shellfish derived food,medi cation anaphylax is Not available Not available 11/06/2022 Not Available [facility] 3 05:03:01 7789 Product containin g penicilli n (product) medicatio n hives Not available Not available 11/06/2022 66786 8001 SNOMED Not Available [facility] 3 05:03:02 7790 Iodinated contrast media (substanc e) medicatio n anaphylax is moderate Not available 11/06/2022 83463 2004 SNOMED Not Available [facility] 3 05:03:02 7791 codeine medicatio n hives moderate Not available 11/06/2022 2670 RxNorm Not Available [facility] 3 05:03:02 Medications Name Sig Start Date [...] TAKE 1 CAPSULE BY MOUTH EVERY DAY*PRANEETH E MAKE AN APPT* 01/09 completed Not Available [...] Available Not Available Not Available Fluad Quad 4196-9930(6 5yr up)(PF) 60 mcg (15 mcg x 4)/0.5mL IM syringe active Not Available Not Available Not Available Vitals Date Recorded Body height Body mass index (BMI) Body weight Body temperature Heart rate Oxygen saturation Systolic And Diastolic Provider Name and Address Organization Details Last Updated DateTime 5 154.94 cm 28.9 kg/m2 90914.6 3 g 97 [degF] 81 /min 98 % 140/86 mm[Hg] GARRY Weiss [facility] [employer] [facility] 5 11:47:57 Date Recorded Body height Oxygen saturation Heart rate Body temperature Body mass index (BMI) Body weight Systolic And Diastolic Provider Name and Address Organization Details Last Updated DateTime 5 154.94 cm 97 % 78 /min 97.8 [degF] 29.1 kg/m2 65553.2 2 g 138/78 mm[Hg] Vanessa you [facility] [employer] [facility] 5 12:13:21 Date Recorded Pain severity - 0-10 verbal numeric rating [Score] - Reported Provider Name and Address Organization Details Last Updated DateTime 05/18/2024 6 Delicia De Guzman RN [facility] [employer] [facility] 05/18/2024 15:15:20 Date Recorded Body height Body mass index (BMI) Body weight Body temperature Heart rate Oxygen saturation Systolic And Diastolic Provider Name and Address Organization Details Last Updated DateTime 4 154.94 cm 26.5 kg/m2 42265.6 5 g 98.4 [degF] 78 /min 98 % 130/74 mm[Hg] Denae Christopher [facility] [employer] [facility] 4 12:29:50 Date Recorded Body height Body mass index (BMI) Body weight Oxygen saturation Heart rate Body temperature Systolic And Diastolic Provider Name and Address Organization Details Last Updated DateTime 154.94 cm 30 kg/m2 84645.1 9 g 97 % 88 /min 96.7 [degF] 138/86 mm[Hg] Vanessarey you [facility] [employer] [facility] 5 09:36:58 Date Recorded Body height Body mass index (BMI) Body weight Body temperature Systolic And Diastolic Provider Name and Address Organization Details Last Updated DateTime 08/17/2024 154.94 cm 28.5 kg/m2 96156.4 5 g 98.8 [degF] 150/90 mm[Hg] GARRY Weiss [facility] [employer] [facility] 4 12:13:30 Social History Question Answer Notes LastModified by Organization Details LastModified Time Tobacco Smoking Status Never Smoker Not Available [employer] 11/06/2022 04:31:57 Do You Have An Advance Directive? No MIGRATION.0301 [id number] Information not available 11/06/2022 Do You Wear A Helmet When Biking? No MIGRATION.0301 [id number] Information not available 11/06/2022 Are You Blind Or Do You Have Difficulty Seeing? No MIGRATION.0301 [id number] Information not available 11/06/2022 What Is Your Level Of Caffeine Consumption? Moderate MIGRATION.0301 [id number] Information not available 11/06/2022 In The 14 Days Before Symptom Onset, Have You Had Close Contact With A Laboratory-conf marleny WAREID-19 While That Case Was Ill? No Not Applicable [email or web address] Information not available 05/18/2024 Are You Deaf Or Do You Have Serious Difficulty Hearing? No MIGRATION.0301 [id number] Information not available 11/06/2022 What Type Of Diet Are You Following? CARBOHYDRATE MIGRATION.0301 [id number] Information not available 11/06/2022 Which Illicit Or Recreational Drugs Have You Used? Marijuana For MS MIGRATION.0301 [id number] Information not available 11/06/2022 What Is The Highest Grade Or Level Of School You Have Completed Or The Highest Degree You Have Received? [id number] MIGRATION.030 [id number] Information not available 11/06/2022 How Many Days Of Moderate To Strenuous Exercise, Like A Brisk Walk, Did You Do In The Last 7 Days? 3 [email or web address] Information not available 05/18/2024 On Those Days That You Engage In Moderate To Strenuous Exercise, How Many Minutes, On Average, Do You Exercise? 15 [email or web address] Information not available 05/18/2024 Have There Been Any Changes To Your Family Or Social Situation? No MIGRATION.0301 [id number] Information not available 11/06/2022 What Is The Fluoride Status Of Your Home? Fluoridated MIGRATION.030 [id number] Information not available 11/06/2022 Are There Any Guns Present In Your Home? No MIGRATION.0301 [id number] Information not available 11/06/2022 Do You Use Insect Repellent Routinely? No MIGRATION.0301 061425 Information not available 11/06/2022 Presence Of Domestic Violence No [email or web address] Information not available 05/18/2024 Are You Able To Care For Yourself? Yes [email or web address] Information not available 05/18/2024 What Was The Date Of Your Most Recent Tobacco Screening? 05/18/2024 [email or web address] Information not available 05/18/2024 Do You Have Any Pets? No MIGRATION.0301 [id number] Information not available 11/06/2022 What Is Your Relationship Status? MIGRATION.0301 [id number] Information not available 11/06/2022 Do You Use Your Seat Belt Or Car Seat Routinely? Yes MIGRATION.0301 [id number] Information not available 11/06/2022 Do You Have Smoke And Carbon Monoxide Detectors In Your Home? Yes MIGRATION.0301 [id number] Information not available 11/06/2022 Are You Passively Exposed To Smoke? Yes MIGRATION.0301 [id number] Information not available 11/06/2022 Are There Any Smokers In Your House? Yes Smokes In The Basement MIGRATION.0301 [id number] Information not available 11/06/2022 What Types Of Sporting Activities Do You Participate In? None [email or web address] Information not available 05/18/2024 Do You Use Sunscreen Routinely? No MIGRATION.0301 [id number] Information not available 11/06/2022 Has Tobacco Cessation Counseling Been Provided? No MIGRATION.0301 [id number] Information not available 11/06/2022 Have You Recently Traveled Abroad? No MIGRATION.0301 [id number] Information not available 11/06/2022 Have You Used IV Drugs? No MIGRATION.0301 425503 Information not available 11/06/2022 Do You Have Difficulty Walking Or Climbing Stairs? No MIGRATION.0301 [id number] Information not available 11/06/2022 Do You Have Any Dietary Restrictions? No MIGRATION.0301 864700 Information not available 11/06/2022 Sex: Female Functional Status Question Answer Note LastModified by [employer] Details LastModified Time Do you use any illicit or recreational drugs? Yes [id number] Information not available 11/06/2022 Do you or have you ever used any other forms of tobacco or nicotine? No [id number] Information not available 11/06/2022 What is your level of alcohol consumption? None [id number] Information not available 11/06/2022 Are you currently employed? No [id number] Information not available 05/18/2024 Do you have transportation difficulties? No [id number] Information not available 11/06/2022 Are you able to walk independently without assistance or assistive devices? YESWOREST [id number] Information not available 11/06/2022 Do you have difficulty doing errands alone? No [id number] Information not available 11/06/2022 Are you able to care for yourself independently? Yes [id number] Information not available 11/06/2022 What is your occupation? RETIRED [id number] Information not available 11/06/2022 Do you have difficulty dressing, bathing, grooming, or toileting? No [id number] Information not available 11/06/2022 What is your exercise level? Occasional [id number] Information not available 11/06/2022 Mental Status Question Answer Note LastModified by Organizat ion Details LastModified Time Do you feel stressed (tense, restless, nervous, or anxious, or unable to sleep at night)? [id number] 26 Information not available 11/06/2022 Do you have difficulty concentrating, remembering or making decisions? Yes [id number] 26 Information not available 11/06/2022 Family History Relationship Description Onset Age of this Age Resolved Age Notes LastModified by Organization Details LastModified Time Father Heart disease Triple Bypass [id number] Not available 11/06/2022 04:42:15 Father Diabetes mellitus [id number] Not available 11/06/2022 04:42:15 Father Essential hypertension [id number] Not available 11/06/2022 04:42:15 Medical History No [...] 50 mcg/0.25mL dose 1 completed Not Available [facility] 07/13/2025 09:31:33 COVID-19, mRNA, LNP-S, PF, 100 mcg/0.5mL dose or 50 mcg/0.25mL dose 2 completed Not Available [facility] 07/13/2025 09:31:33 COVID-19, mRNA, LNP-S, bivalent, PF, 50 mcg/0.5 mL or 25mcg/0.25 mL dose 2 completed Not Available [facility] 07/13/2025 09:31:33 Influenza, high-dose, quadrivalent, PF 2 completed Not Available [facility] 07/13/2025 09:31:33 Tdap 3 completed Not Available [facility] 07/13/2025 09:31:33 Influenza, high-dose, quadrivalent, PF 3 completed Not Available [facility] 07/13/2025 09:31:33 RSV, recombinant, protein subunit RSVpreF, adjuvant reconstituted, 0.5 mL, PF 3 completed Not Available [facility] 07/13/2025 09:31:33 COVID-19, mRNA, LNP-S, PF, 50 mcg/0.5 mL 3 completed Not Available [facility] 07/13/2025 09:31:33 Influenza, high-dose, trivalent, PF 4 completed Not Available [facility] 07/13/2025 09:31:33 zoster recombinant 4 completed Not Available [facility] 07/13/2025 09:31:33 COVID-19, mRNA, LNP-S, PF, 50 mcg/0.5 mL 4 completed Not Available [facility] 07/13/2025 09:31:33 COVID-19, mRNA, LNP-S, PF, 10 mcg/0.2 mL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
--- OUTSIDE RECORDS SUMMARY | 2025-08-29 15:55 | XMS_ITS | Clinical Summary ---
Author Organization [facility] [employer] Address [address] [place] [address] [place] [address] Care Team Providers Care Solar Sales Energy Advisor Name Role Phone Olvin Muniz MD Primary Care Provider [phone] Source Comments [facility],non-owned Affiliates and Associated Physician Practices is amultiple site organization consisting of ambulatory clinics and hospital sitesin [place], [place], [place] and [place]. This disclosure is being madepursuant to the Care Everywhere program and may not contain all information available regarding this patient. 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
== END 2025-08-29 15:06 | disposition home or self-care (01) ==
PROVIDERS: Emergency Medicine; Emergency Provider Student in an Organized Health Care Education/Training Program; PCP Internal Medicine
DX: J10.1 Influenza due to other identified influenza virus with other respiratory manifestations (principal); G35.D Multiple sclerosis, unspecified; E11.9 Type 2 diabetes mellitus without complications; Z85.07 Personal history of malignant neoplasm of pancreas; Z20.822 Contact with and (suspected) exposure to COVID-19
CPT/HCPCS: 71045; 87637; 99283